=== PATIENT | male | born 1955 | race Hispanic/Latino ===

== ENCOUNTER 2018-09-04 13:08 | Inpatient (IN) | payer OTHER, SELFPAY ==
[2018-09-04] MEDS ORDERED: ASPIRIN 81 MG CHEWABLE TABLET ONE (14:04)
[2018-09-04 14:14] LABS: ALT/SGPT 32 U/L (12-78); AST/SGOT 17 U/L (15-37); Albumin 3.9 g/dL (3.4-5.0); Alkaline Phosphatase 81 U/L (45-117); BUN Blood Urea Nitrogen 16 mg/dL (7-18); Bicarbonate 27 mmol/L (21-32); Bilirubin Direct < 0.1 mg/dL (0-0.2); Bilirubin Total 0.4 mg/dL (0.2-1.0); Glucose Level 92 mg/dL (74-106); Magnesium 2.2 mg/dL (1.8-2.4); NT PRO-BNP 23 pg/mL (<125); Potassium 4.3 mmol/L (3.5-5.1); Protein, Total 7.6 g/dL (6.4-8.2); Sodium Level 139 mmol/L (136-145); Troponin (Emerg Dept Use Only) 0.03 ng/mL (0.0-0.045)
[2018-09-04 14:18] LABS: Protime INR 1.06
[2018-09-04 14:44] LABS: Absolute Lymphocytes (CBC) 1.6 K/uL (0.7-4.9); Absolute Monocytes 0.7 K/uL (0.1-1.3); Absolute Neutrophil 4.5 K/uL (1.8-8.0); Basophils % 0.9 % (0-1.3); Eosinophils % 6.7 % (0-4.4); Hematocrit 48.8 % (39.6-49.0); Lymphocytes % 22.5 % (15.3-44.8); MPV 9.1 fL (7.6-11.3); Monocytes % 9.1 % (3.3-12.3); RBC Red Blood Cell Count 5.44 M/uL (4.33-5.43)
--- NOTE | 2018-09-04 14:55 | RAD REPORT ---
EXAM DESCRIPTION: Morgan Single View09/04/2018 1:49 pm CLINICAL HISTORY: Chest pain COMPARISON: none FINDINGS: The lungs appear clear of acute infiltrate. The heart is normal size Mild prominence of the mediastinum IMPRESSION: Mild prominence of the mediastinum. CT chest with IV contrast recommended
--- NOTE | 2018-09-04 15:07 | EKG ---
Test Date: 2018-09-04 Test Time: 13:13:18 Press Puller: ANTHONY MEASUREMENT RESULTS: Intervals: Rate: 58 [place]: 142 QRSD: 80 QT: 402 QTc: 394 [place]: P: 13 [place]: 142 QRS: 74 T: 54 INTERPRETIVE STATEMENTS: Sinus bradycardia Otherwise normal ECG Compared to ECG 03/22/2010 09:10:57 Sinus rhythm no longer present T-wave abnormality no longer present Electronically Signed On 09-04-18 15:07:09 CDT by Dex Mtz
--- NOTE | 2018-09-04 15:17 | ER ---
Nurse's Notes [facility] Name: Jose Song Age: 62 yrs Sex: Male : 1955 Arrival Date: 09/04/2018 Time: 13:11 Bed 23 Private MD: Diagnosis: Other chest pain Presentation: 09/04 13:12 Presenting complaint: Chest pain that radiates to both arms that woke him up from sleep hb this morning. Also c/o mild SOB. Transition of care: patient was not received from another setting of care. Onset of symptoms was September 04, 2018. Risk Assessment: Do you want to hurt yourself or someone else? Patient reports no desire to harm self or others. Care prior to arrival: None. 13:12 Method Of Arrival: Ambulatory hb 13:12 Acuity: SHAVON 3 hb 20:12 Initial Sepsis Screen: Does the patient meet any 2 criteria? No. Patient's initial rv sepsis screen is negative. Does the patient have a suspected source of infection? No. Patient's initial sepsis screen is negative. Historical: - Allergies: 13:14 No Known Allergies; hb - PMHx: 13:14 Hypertension; hb - PSHx: 13:14 Heart stents; hb - Immunization history:: Adult Immunizations up to date. - Social history:: Smoking status: Patient/guardian denies using tobacco, Patient/guardian denies using alcohol, street drugs, The patient lives with family. - Ebola Screening: : No symptoms or risks identified at this time. - Family history:: not pertinent. Screenin:30 Abuse screen: Denies threats or abuse. Denies injuries from another. Nutritional aj1 screening: No deficits noted. Tuberculosis screening: No symptoms or risk factors identified. 20:12 Fall Risk None identified. rv Assessment: 13:30 General: Appears in no apparent distress. uncomfortable, Behavior is calm, cooperative, aj1 appropriate for age. Pain: Complains of pain in mid-sternal area Pain radiates to right arm, left arm and neck Pain currently is 7 out of 10 on a pain scale. Quality of pain is described as burning, Pain began 8 hours ago Is continuous. Neuro: Level of Consciousness is awake, alert, obeys commands, Oriented to person, place, time, situation. Cardiovascular: Reports chest pain, Heart tones S1 S2 present Patient's skin is warm and dry. Rhythm is sinus rhythm. Respiratory: Airway is patent Respiratory effort is even, unlabored, Respiratory pattern is regular, symmetrical, Breath sounds are clear bilaterally. GI: No signs and/or symptoms were reported involving the gastrointestinal system. : No signs and/or symptoms were reported regarding the genitourinary system. EENT: No signs and/or symptoms were reported regarding the EENT system. Derm: No signs and/or symptoms reported regarding the dermatologic system. Skin is pink, warm \T\ dry. normal. Musculoskeletal: No signs and/or symptoms reported regarding the musculoskeletal system. Circulation, motion, and sensation intact. 14:45 Reassessment: Patient appears in no apparent distress at this time. No changes from aj1 previously documented assessment. Patient and/or family updated on plan of care and expected duration. Pain level reassessed. Patient is alert, oriented x 3, equal unlabored respirations, skin warm/dry/pink. 16:31 Reassessment: Patient appears in no apparent distress at this time. Patient and/or rv family updated on plan of care and expected duration. Pain level reassessed. Patient is alert, oriented x 3, equal unlabored respirations, skin warm/dry/pink. Patient states feeling better. Patient states symptoms have improved. 20:17 Reassessment: Patient appears in no apparent distress at this time. No changes from rv previously documented assessment. Patient and/or family updated on plan of care and expected duration. Pain level reassessed. Patient is alert, oriented x 3, equal unlabored respirations, skin warm/dry/pink. Vital Signs: 13:13 BP 161 / 113; Pulse 75; Resp 20; Temp 98.0; Pulse Ox 99% on R/A; Pain 7/10; hb 13:30 BP 128 / 96; Pulse 56; Resp 18; Pulse Ox 98% on R/A; aj1 14:00 BP 150 / 95 LA; Pulse 56; Resp 17 S; Pulse Ox 99% on R/A; rv 14:44 BP 151 / 100; Pulse 53; Resp 18; Pulse Ox 99% ; aj1 15:53 BP 152 / 97; Pulse 70; Resp 19; Temp 97.8; Pulse Ox 98% ; lt1 16:30 BP 170 / 118; Pulse 52; Resp 17; Pulse Ox 99% ; rv 17:00 BP 159 / 115; Pulse 53; Resp 15; Pulse Ox 99% ; rv 17:30 BP 151 / 111; Pulse 54; Resp 15; Pulse Ox 99% ; rv 18:00 BP 149 / 100; Pulse 57; Resp 16; Pulse Ox 99% ; rv 18:30 BP 135 / 94; Pulse 55; Resp 15; Pulse Ox 99% ; rv 19:00 BP 163 / 98; Pulse 57; Resp 15; Pulse Ox 99% ; rv 19:30 BP 148 / 101; Pulse 61; Resp 17; Pulse Ox 99% ; rv ED Course: 13:11 Patient arrived in ED. hb 13:13 Triage completed. hb 13:13 Arm band placed on left wrist. hb 13:14 EKG completed in triage. Results shown to MD. hb 13:24 Shirley Ruiz, RN is Primary Nurse. aj1 13:24 Codey Oseguera MD is Attending Physician. ma2 13:27 EKG done, by technology support analyst. reviewed by Tremaine Pandey MD. sm3 13:30 Patient has correct armband on for positive identification. surveillance monitor on. Pulse aj1 ox on. NIBP on. 13:30 No provider procedures requiring assistance completed. Patient maintains SpO2 aj1 saturation greater than 95% on room air. 13:46 X-ray completed. Portable x-ray completed in exam room. Patient tolerated procedure ml well. 13:47 XRAY Chest (1 view) In Process Unspecified. EDMS 13:50 Initial lab(s) drawn, by il, sent to lab. Inserted saline lock: 18 gauge in right aj1 antecubital area, using aseptic technique. Blood collected. 15:15 El Gunderson DO is Hospitalizing Provider. ma2 15:[address] via stretcher. 2 20:17 Patient admitted, IV remains in place. intact. rv Administered Medications: 13:54 Drug: Aspirin Chewable Tablet 324 mg Route: PO; aj1 16:21 Follow up: Response: No adverse reaction rv Outcome: 15:16 Decision to Hospitalize by Provider. ma2 20:10 Admitted to Tele accompanied by tech, via wheelchair, room 421, with chart, Report rv called to BALDO KERNS 20:10 Condition: good 20:10 Instructed on the need for admit, Demonstrated understanding of instructions. 20:17 Patient left the ED. rv Signatures: Dispatcher [employer] EDMS Shirley Ruiz, RN RN [email or web address] Jose Manuel, Alia Alvarez, LUIS F RN Sonali Chavez 2 Codey Oseguera MD MD pr2 Koki Coppola 3 Jd Chavez, RN RN [facility], [place] [id number]
--- NOTE | 2018-09-04 15:17 | EDPHYS ---
Physician Documentation [facility] Name: Jose Song Age: 62 yrs Sex: Male : 1955 Arrival Date: 09/04/2018 Time: 13:11 Bed 23 Private MD: ED Physician Codey Oseguera HPI: 09/04 13:36 This 62 yrs old Male presents to ER via Ambulatory with complaints of Chest ma2 Pain. 13:36 The patient or guardian reports chest pain that is located primarily in the substernal ma2 area. Onset: gradually, 3 day(s) ago. The pain does not radiate. Associated signs and symptoms: Pertinent negatives: abdominal pain, diaphoresis, dizziness. The chest pain is described as aching. Duration: The patient or guardian reports a single episode, The patient or guardian reports multiple episodes, that have now resolved. Severity of pain: At its worst the pain was moderate in the emergency department the pain is unchanged. Historical: - Allergies: 13:14 No Known Allergies; hb - PMHx: 13:14 Hypertension; hb - PSHx: 13:14 Heart stents; hb - Immunization history:: Adult Immunizations up to date. - Social history:: Smoking status: Patient/guardian denies using tobacco, Patient/guardian denies using alcohol, street drugs, The patient lives with family. - Ebola Screening: : No symptoms or risks identified at this time. - Family history:: not pertinent. ROS: 13:36 Constitutional: Negative for fever, chills, and weight loss, Respiratory: Negative for ma2 shortness of breath, cough, wheezing, and pleuritic chest pain, Abdomen/GI: Negative for abdominal pain, nausea, diarrhea, and constipation. 13:36 Cardiovascular: Positive for chest pain, Negative for edema. 13:36 All other systems are negative. Exam: 13:36 Constitutional: This is a well developed, well nourished patient who is awake, alert, ma2 and in no acute distress. Chest/axilla: Normal chest wall appearance and motion. Nontender with no deformity. No lesions are appreciated. Cardiovascular: Regular rate and rhythm with a normal S1 and S2. No gallops, murmurs, or rubs. Normal PMI, no JVD. No pulse deficits. Respiratory: Lungs have equal breath sounds bilaterally, clear to auscultation and percussion. No rales, rhonchi or wheezes noted. No increased work of breathing, no retractions or nasal flaring. Abdomen/GI: Soft, non-tender, with normal bowel sounds. No distension or tympany. No guarding or rebound. No evidence of tenderness throughout. Skin: Warm, dry with normal turgor. Normal color with no rashes, no lesions, and no evidence of cellulitis. MS/ Extremity: Pulses equal, no cyanosis. Neurovascular intact. Full, normal range of motion. Vital Signs: 13:13 BP 161 / 113; Pulse 75; Resp 20; Temp 98.0; Pulse Ox 99% on R/A; Pain 7/10; hb 13:30 BP 128 / 96; Pulse 56; Resp 18; Pulse Ox 98% on R/A; aj1 14:00 BP 150 / 95 LA; Pulse 56; Resp 17 S; Pulse Ox 99% on R/A; rv 14:44 BP 151 / 100; Pulse 53; Resp 18; Pulse Ox 99% ; aj1 15:53 BP 152 / 97; Pulse 70; Resp 19; Temp 97.8; Pulse Ox 98% ; lt1 16:30 BP 170 / 118; Pulse 52; Resp 17; Pulse Ox 99% ; rv 17:00 BP 159 / 115; Pulse 53; Resp 15; Pulse Ox 99% ; rv 17:30 BP 151 / 111; Pulse 54; Resp 15; Pulse Ox 99% ; rv 18:00 BP 149 / 100; Pulse 57; Resp 16; Pulse Ox 99% ; rv 18:30 BP 135 / 94; Pulse 55; Resp 15; Pulse Ox 99% ; rv 19:00 BP 163 / 98; Pulse 57; Resp 15; Pulse Ox 99% ; rv 19:30 BP 148 / 101; Pulse 61; Resp 17; Pulse Ox 99% ; rv MDM: 13:24 Patient medically screened. wi2 13:36 Differential diagnosis: acute myocardial infarction, anxiety, chest wall pain, ma2 gastroesophageal reflux disease (GERD), stable angina. ILA Risk Score: 1 - Three or more CAD risk factors, 1- Known CAD, 1 - ASA use in past 7 days. 15:15 Data reviewed: vital signs, nurses notes. Counseling: I had a detailed discussion with ma2 the patient and/or guardian regarding: the historical points, exam findings, and any diagnostic results supporting the discharge/admit diagnosis, the presence of at least one elevated blood pressure reading (>120/80) during this emergency department visit, the need for further work-up and treatment in the hospital. 09/04 13:25 Order name: Basic Metabolic Panel [facility] [place] 09/04 13:25 Order name: CBC with Diff; Complete Time: 15:26 wi2 09/04 13:25 Order name: LFT's; Complete Time: 14:34 wi2 09/04 13:25 Order name: Magnesium; Complete Time: 14:34 ma2 09/04 13:25 Order name: NT PRO-BNP; Complete Time: 14:34 ma2 09/04 13:25 Order name: PT-INR; Complete Time: 14:49 ma2 09/04 13:25 Order name: Troponin (emerg Dept Use Only); Complete Time: 14:34 ma2 09/04 13:25 Order name: XRAY Chest (1 view); Complete Time: 15:26 [facility] [place] 09/04 13:25 Order name: EKG; Complete Time: 13:26 wi2 09/04 13:25 Order name: Cardiac monitoring; Complete Time: 13:40 ma2 09/04 13:25 Order name: Basic Metabolic Panel; Complete Time: 14:34 EDMS 09/04 15:27 Order name: CT Chest Angio [facility] [place] 09/04 15:51 Order name: CT EDMS 09/04 13:25 Order name: EKG - Nurse/Tech; Complete Time: 13:26 wi2 09/04 13:25 Order name: IV Saline Lock; Complete Time: 13:55 wi2 09/04 13:25 Order name: Labs collected and sent; Complete Time: 13:55 wi2 09/04 13:25 Order name: O2 Per Protocol; Complete Time: 13:40 wi2 09/04 13:25 Order name: O2 Sat Monitoring; Complete Time: 13:40 ma2 Administered Medications: 13:54 Drug: Aspirin Chewable Tablet 324 mg Route: PO; aj1 16:21 Follow up: Response: No adverse reaction rv Disposition: 09/04/18 15:16 Hospitalization ordered by El Gunderson for Observation. Preliminary diagnosis is Other chest pain. - Bed requested for Telemetry/MedSurg (observation). - Status is Observation. rv - Condition is Fair. - Problem is new. - Symptoms are resolved. UTI on Admission? No Signatures: Dispatcher [employer] EDShirley Moreno RN RN aj1 Susan James RN RN dw Alia Hough, LUIS F KERNS Codey Oseguera MD MD wi2 Jd Chavez, LUIS F RN rv Corrections: (The following items were deleted from the chart) 15:16 15:16 Hospitalization Ordered by [facility] for Observation. Preliminary ma2 diagnosis is Other chest pain. Bed requested for Telemetry/MedSurg (Inpatient). Status is Observation. Condition is Fair. Problem is new. Symptoms are resolved. UTI on Admission? No. ma2 18:38 15:16 09/04/2018 15:16 Hospitalization Ordered by [facility] for Observation. dw Preliminary diagnosis is Other chest pain. Bed requested for Telemetry/MedSurg (observation). Status is Observation. Condition is Fair. Problem is new. Symptoms are resolved. UTI on Admission? No. ma2 20:17 18:38 09/04/2018 15:16 Hospitalization Ordered by [facility] for Observation. rv Preliminary diagnosis is Other chest pain. Bed requested for Telemetry/MedSurg (observation). Status is Observation. Condition is Fair. Problem is new. Symptoms are resolved. UTI on Admission? No. dw
--- NOTE | 2018-09-04 15:36 | P.HP ---
Certification for Inpatient Patient admitted to: Observation With expected LOS: <2 Midnights Patient will require the following post-hospital care: None Practitioner: I am a practitioner with admitting privileges, knowledge of patient current condition, hospital course, and medical plan of care. Services: Services provided to patient in accordance with Admission requirements found in Title 42 Section 412.3 of the Code of Federal Regulations Patient History Date of Service: 09/04/18 Primary Care Provider: None; Cardiology-Dr. Mtz Reason for admission: Chest pain History of Present Illness: 62-year-old male presented to emergency room with chest pain. He has reported chest pain for the past 4 weeks. Over the last 2 days and last night chest pain was severe. It was mainly to the substernal region. It radiated to the right arm and neck. Patient denied any significant nausea, vomiting. Mild shortness of breath noted. Patient with history of hypertension and stent placed in the past. Patient has not followed up with cardiology. Patient appears to not be compliant with his medication. In the ER patient evaluated. Initial blood pressure is elevated. If cardiac enzymes unremarkable. Chest x-ray shows mild prominence to the mediastinum. CBC and BMP unremarkable. Patient admitted for further evaluation. When I saw the patient the ER, he appeared comfortable. Blood pressure slightly elevated. Patient has not followed up with cardiology recently. Previous heart catheterization showed significant stenosis to the LAD. Stent placed. He has not followed up since that time. Allergies No Known Allergies Allergy (Unverified 11/19/12 20:19) Home medications list reviewed: Yes Home Medications: Aspirin 325 mg PO DAILY #30 tablet 11/23/12 Clopidogrel Bisulfate [Plavix*] 75 mg PO DAILY #30 tablet 11/23/12 Metoprolol Tartrate [Lopressor*] 50 mg PO BID #60 tab 11/23/12 Simvastatin [Zocor*] 40 mg PO UD #30 tablet 11/23/12 - Past Medical/Surgical History Diabetic: No -: Hypertension -: CAD with stent to the LAD -: GERD -: Obesity -: Heart catheterization, stent placed -: Left hand surgery Psychosocial/ Personal History: Patient is . He has 5 children. 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 - Family History Family History: Reviewed- Non-Contributory - Social History Smoking Status: Former smoker Alcohol use: No CD- Drugs: No Caffeine use: Yes Place of Residence: Home Review of Systems General: As per HPI Eyes: Unremarkable ENT: Unremarkable Respiratory: Unremarkable Cardiovascular: Chest Pain, As per HPI Gastrointestinal: As per HPI (Some reflex noted.) Genitourinary: Unremarkable Musculoskeletal: Unremarkable Integumentary: Unremarkable Neurological: Unremarkable Lymphatics: Unremarkable Physical Examination - Physical Exam General: Alert, In no apparent distress, Oriented x3, Cooperative HEENT: Atraumatic, Normocephalic, PERRLA, Mucous membr. moist/pink Neck: Supple, No Thyromegaly Respiratory: Clear to auscultation bilaterally, Normal air movement Cardiovascular: Normal pulses, Regular rate/rhythm Gastrointestinal: Normal bowel sounds, Soft and benign, Non-distended, No tenderness, No masses, No rebound, No guarding Musculoskeletal: No contractures, No erythema, No tenderness, No warmth Integumentary: No tenderness/swelling, No erythema, No warmth, No cyanosis Neurological: Normal speech, Normal strength at 5/5 x4 extr, Normal tone, Normal affect - Studies Laboratory Data (last 24 hrs) 09/04/18 13:49: PT 12.5, INR 1.06 09/04/18 13:49: WBC 7.3, Hgb 16.4, Hct 48.8, Plt Count 278 09/04/18 13:49: Sodium 139, Potassium 4.3, BUN 16, Creatinine 0.86, Glucose 92, Magnesium 2.2, Total Bilirubin 0.4, AST 17, ALT 32, Alkaline Phosphatase 81 Assessment and Plan - Plan Impression: Chest pain with prior CAD and stent placed to the LAD in 2012 with poor follow up Hypertension, uncontrolled Obesity GERD Plan: Chest pain with prior CAD and stent placed to the LAD in 2012 with poor follow up: Patient will be admitted. Continue to monitor cardiac enzymes and telemetry. Will place on aspirin, DNAIELITO-inhibitor and beta-donavan therapy. Will continue DVT prophylaxis with Lovenox. Echocardiogram ordered. Will keep the patient NPO after midnight. Cardiology consulted to further evaluate. Anticipate possible cardiac evaluation and possible intervention. Await further recommendations from cardiology. Will obtain CT scan of the chest to evaluate mild prominence to the mediastinum. Hypertension, uncontrolled: Continue with metoprolol. Will add DANIELITO-inhibitor. Obesity: Will address lifestyle modification education and obtain BMI. GERD: Will start Protonix. Discharge Plan: Home Plan to discharge in: 24 Hours - Advance Directives Does patient have a Living Will: No Does patient have a Durable POA for Healthcare: No - Code Status/Comfort Care Code Status Assessed: Yes (Patient full code.) Time Spent Managing Pts Care (In Minutes): 55
--- NOTE | 2018-09-04 15:50 | RAD REPORT ---
EXAM DESCRIPTION: CT - Chest Angio - 09/04/2018 3:40 pm CLINICAL HISTORY: Chest pain. CHEST PAIN COMPARISON: No comparisons TECHNIQUE: CT angiogram of the pulmonary arteries was performed with MIP. All CT scans are performed using dose optimization technique as appropriate and may include automated exposure control or mA/KV adjustment according to patient size. FINDINGS: No evidence of pulmonary thromboembolism. No acute aortic finding demonstrated. Mild to moderate interstitial pulmonary edema seen. No significant pericardial or pleural fluid. No concerning bony finding. IMPRESSION: No evidence of pulmonary thromboembolism. [id number] interstitial pulmonary edema.
[2018-09-04] MEDS ORDERED: ONDANSETRON 4 MG/2 ML VIAL IV PRN (21:20)
[2018-09-04] MEDS ORDERED: ACETAMINOPHEN 500 MG TAB PO PRN (21:20)
[2018-09-04] MEDS: MORPHINE 2 MG/ML SYR IV PRN (21:54)
[2018-09-04 22:32] LABS: CKMB Creatine Kinase MB 1.9 ng/mL (0.3-3.6); Thyroid Stimulating Hormone 2.47 uIU/mL (0.360-3.740); Troponin I 0.08 ng/mL (0.0-0.045)
[2018-09-05 04:30] LABS: Urine Appearance CLEAR; Urine Bilirubin NEGATIVE (NEG); Urine Blood TRACE (NEG); Urine Color YELLOW; Urine Glucose NEGATIVE (NEG); Urine Protein NEGATIVE (NEG); Urine Specific Gravity >=1.030 (1.005-1.030); Urine Urobilinogen 0.2 mg/dL (0.2-1.0)
[2018-09-05 04:39] VITALS: BMI 29.9
[2018-09-05 04:49] LABS: Urine Microscopic Reflex ORDER UMIC
[2018-09-05 05:13] LABS: Urine Bacteria <20 /HPF (NONE SEEN); Urine Culture Reflex Order REFLEXED; Urine RBC <5 /HPF (NONE SEEN)
[2018-09-05] MEDS: PANTOPRAZOLE 40MG TABLET PO SCH (05:56)
[2018-09-05] MEDS ORDERED: METOPROLOL TAR 25 MG TAB PO SCH (06:00)
[2018-09-05] MEDS: MORPHINE 2 MG/ML SYR IV PRN ×2 (06:24→18:58)
[2018-09-05 06:25] LABS: Absolute Lymphocytes (CBC) 1.8 K/uL (0.7-4.9); Absolute Monocytes 0.5 K/uL (0.1-1.3); Absolute Neutrophil 3.5 K/uL (1.8-8.0); Eosinophils % 9.6 % (0-4.4); Hematocrit 47.3 % (39.6-49.0); Lymphocytes % 27.9 % (15.3-44.8); MPV 8.6 fL (7.6-11.3); Monocytes % 7.5 % (3.3-12.3); RBC Red Blood Cell Count 5.29 M/uL (4.33-5.43)
[2018-09-05] MEDS: NITROGLYCERIN 0.4 MG/TAB SL PRN ×3 (06:40→10:07)
[2018-09-05 06:43] LABS: Magnesium 2.1 mg/dL (1.8-2.4); Potassium 4.1 mmol/L (3.5-5.1); Troponin I 0.13 ng/mL (0.0-0.045)
[2018-09-05] MEDS ORDERED: FUROSEMIDE 40 MG/4 ML VIAL IV SCH (09:00)
[2018-09-05] MEDS ORDERED: INFLUENZA VACCINE (for 3y+) 0.5 ML DOSE IMVAC ONE (09:00)
[2018-09-05] MEDS: ENOXAPARIN 40 MG/0.4 ML SQ SCH (09:00)
--- NOTE | 2018-09-05 09:05 | P.PN ---
Subjective Date of Service: 09/05/18 Primary Care Provider: None; Cardiology-Dr. Mtz Chief Complaint: Chest pain Subjective: Other (Patient had chest pain this morning. Patient seen and evaluated by Cardiology. Cardiology plans for heart catheterization.) Physical Examination - Vital Signs Temperature: 98.1 F Blood Pressure: 109/72 Pulse: 59 Respirations: 16 Pulse Ox (%): 97 - Physical Exam General: Alert, In no apparent distress, Oriented x3, Cooperative HEENT: Atraumatic Neck: Supple Respiratory: Clear to auscultation bilaterally, Normal air movement Cardiovascular: Normal pulses, Regular rate/rhythm Gastrointestinal: Normal bowel sounds, Soft and benign, Non-distended Musculoskeletal: No erythema, No tenderness, No warmth Integumentary: No tenderness/swelling, No erythema, No warmth, No cyanosis Neurological: Normal speech, Normal strength at 5/5 x4 extr, Normal tone, Normal affect - Studies Laboratory Data (last 24 hrs) 09/04/18 13:49: PT 12.5, INR 1.06 09/04/18 13:49: WBC 7.3, Hgb 16.4, Hct 48.8, Plt Count 278 09/04/18 13:49: Sodium 139, Potassium 4.3, BUN 16, Creatinine 0.86, Glucose 92, Magnesium 2.2, Total Bilirubin 0.4, AST 17, ALT 32, Alkaline Phosphatase 81 Medications List Reviewed: Yes Assessment & Plan Discharge Plan: Home Plan to discharge in: 48 Hours Physician Review Additional Text: Impression: Chest pain secondary to NSTEMI with prior CAD and stent placed to the LAD in 2012 with poor follow up Hypertension, uncontrolled Hyperlipidemia Obesity, BMI 30 GERD Plan: Chest pain secondary to NSTEMI with prior CAD and stent placed to the LAD in 2012 with poor follow up: Patient had chest pain this morning. Troponin elevated. Patient seen in evaluated by Cardiology. Cardiology plans for heart catheterization today. Patient to remain NPO and bed rest. Patient may have severe CAD. Await findings and recommendations after heart catheterization. Hypertension, uncontrolled: Continue with medication. Will continue to monitor and adjust. Hyperlipidemia: Continue medication. Obesity, BMI 30: Will address lifestyle modification education. GERD: Continue medication. Time Spent Managing Pts Care (In Minutes): 55
[2018-09-05] MEDS: ASPIRIN EC 81 MG TAB PO SCH (09:07)
[2018-09-05] MEDS: LISINOPRIL 10 MG TAB PO SCH (09:07)
[2018-09-05] MEDS ORDERED: NA CHLORIDE 0.9% 1,000 ML ONE (10:41)
[2018-09-05] MEDS ORDERED: ATROPINE SULF 1 MG/10 ML SYR IV ONE (10:47)
[2018-09-05] MEDS ORDERED: NA CHLORIDE 0.9% 50 ML ONE (10:47)
[2018-09-05] MEDS ORDERED: HEPA 1000U/500MLS 1,000 UNIT/500 ML BAG IV ONE (10:47)
[2018-09-05] MEDS ORDERED: FENTANYL CITR 100 MCG/2 ML ONE ×2 (11:10→11:46)
[2018-09-05] MEDS ORDERED: NITROGLYCERIN 100 MCG/ML SYR (for cath lab use only) IV ONE (11:10)
[2018-09-05] MEDS ORDERED: NITROGLYCERIN/D5W 25 MG/250 ML BTL IV ONE (11:10)
[2018-09-05] MEDS ORDERED: MIDAZOLAM HCL 2 MG/2 ML INJ ONE (11:10)
[2018-09-05] MEDS ORDERED: PRASUGREL (EFFIENT) 10 MG TAB ONE (12:10)
[2018-09-05] MEDS ORDERED: ASPIRIN 325 MG TAB ONE (12:10)
--- NOTE | 2018-09-05 15:51 | EKG ---
Test Date: 2018-09-05 Test Time: 06:40:39 Data Analytics Analyst: 33 MEASUREMENT RESULTS: Intervals: Rate: 69 [place]: 164 QRSD: 82 QT: 428 QTc: 458 [place]: P: 53 [place]: 164 QRS: 68 T: 51 INTERPRETIVE STATEMENTS: Normal sinus rhythm Normal ECG Compared to ECG 09/04/2018 13:13:18 Sinus bradycardia no longer present Electronically Signed On 09-05-18 15:50:15 CDT by Jair Gonzalez
[2018-09-05] MEDS: ATORVASTATIN 80 MG TAB PO SCH (20:22)
--- NOTE | 2018-09-05 23:06 | OP ---
Surgeon: Jair Gonzalez MD Brokerage Clerk: Josr Chauhdari. Indications: Admitted on 09/04/[address] Gunderson' service with a non-ST elevation myocardial infarc tion. Procedure In Detail: The patient brought to the cathode builder on 09/05/2018 for non-ST elevation myocardi al infarction. He was prepped and draped in the routine sterile fashion. He was given 4 mg of Verse d for sedation with some fentanyl. A 6-Nepalese sheath introduced in the right common femoral artery. Anjelica catheter 6-Nepalese was used to do the angiography. He had a distal 99% RCA with some thrombu s. He had a completely occluded distal OM3 with collaterals from the RCA. He had a completely occlu ded LAD with some collaterals from the RCA. He had multiple diagonal stenosis. The patient was acti vely in pain as I was doing the case. I elected to treat the culprit lesion, which was obviously the RCA based on the look of it. We used the balloon 2.5 x 12 Emerge to predilate a [place] wire to cros s Needles Scientific Synergy stent 3.0 x 12 to deploy in the lesion with 0% residual. There were no c omplications. Blood Loss: 5 cc. Postoperative Diagnosis: Severe coronary artery disease status post primary angioplasty and stent of the distal RCA. Plan is for aspirin, Effient, beta donavan, and statin. The patient received Angiomax during the pro cedure. Total conscious sedation was 45 minutes. WADE/ELISEO Voice ID: [id number] Report ID: [id number]
[2018-09-06] MEDS: MORPHINE 2 MG/ML SYR IV PRN ×3 (03:42→13:44)
[2018-09-06 05:22] LABS: Absolute Monocytes 1.1 K/uL (0.1-1.3); Absolute Neutrophil 11.4 K/uL (1.8-8.0); Basophils % 0.4 % (0-1.3); Eosinophils % 0.1 % (0-4.4); Hematocrit 47.4 % (39.6-49.0); Lymphocytes % 7.6 % (15.3-44.8); MPV 8.8 fL (7.6-11.3); Monocytes % 7.9 % (3.3-12.3); RBC Red Blood Cell Count 5.39 M/uL (4.33-5.43)
[2018-09-06 05:36] LABS: Magnesium 2.2 mg/dL (1.8-2.4); Potassium 3.8 mmol/L (3.5-5.1)
[2018-09-06] MEDS ORDERED: METOPROLOL XL 50 MG TAB PO SCH (06:00)
[2018-09-06] MEDS ORDERED: POTASSIUM CL SA 10 MEQ TAB PO ONE (06:33)
[2018-09-06 06:41] LABS: Blood Morphology Comment NOT SEEN (NOT SEEN); Platelet Estimate ADEQ; Urine White Blood Cell Casts OK
[2018-09-06] MEDS: PANTOPRAZOLE 40MG TABLET PO SCH (06:52)
--- NOTE | 2018-09-06 07:16 | CON ---
Date of Consultation: 09/05/2018 The patient was admitted to Dr. Gunderson' service on 09/04/2018. I saw the patient on 09/05/2018. Reason For Consultation: Non-ST elevation myocardial infarction. History Of Present Illness: Mr. Song is a 62-year-old Latin-[place] African male that we have seen in the past. He has a history of hypertension, coronary artery disease. Has had multiple LAD stent in the past few years ago. Had completely lost to followup from a cardiovascular standpoint. Had coy nued to take aspirin and metoprolol at home, but no other medication. No followup with primary care physician and substernal chest pain radiating to both arms and back, diaphoresis, shortness of breath . Denied any PND, orthopnea, pedal edema, palpitations, or syncope. His initial troponin was 0.08. An EKG showed normal sinus rhythm with peak T-waves anteriorly. No ST elevation. Medical history a s stated above. Allergies: NONE. Review of Systems: Negative. Social History: Negative. Family History: Negative. Medications: Listed earlier. Physical Examination: General: He was anxious, diaphoretic, having chest pain. Vital Signs: Stable. However, he was afebrile. HEENT: Negative. Neck: Supple. There is no bruit. Chest: Clear. Cardiac: Revealed a regular rhythm and rate. No murmurs, gallops, or rubs. Abdomen: Benign. Extremities: Revealed no clubbing, cyanosis, or edema. Diagnostic Data: Showed a troponin of 0.08. CT angiography showed CHF. Chest x-ray showed he has s ome CHF that is mild. Impression And Plan: Non-ST elevation myocardial infarction. I will take him to the [facility] today because he has been having symptoms. I would hold his Lovenox for now. Continue aspirin, metoprolol , needs to be on a statin. We will see what the catheterization shows prior to making a final decisi on. An echocardiogram is pending as well. His blood pressure is fairly well controlled. As mention ed previously, he has a history of coronary artery disease with multiple LAD stents. We will see byron matias the with catheterization. Case was discussed with Dr. Gunderson. WADE/ELISEO Voice ID: [id number] Report ID: [id number]
--- NOTE | 2018-09-06 07:39 | EKG ---
Test Date: 2018-09-06 Test Time: 07:12:18 Accounts Adjustable Clerk: ANTHONY MEASUREMENT RESULTS: Intervals: Rate: 79 NJ: 152 QRSD: 82 QT: 372 QTc: 426 [place]: P: 56 NJ: 152 QRS: 33 T: 105 INTERPRETIVE STATEMENTS: Normal sinus rhythm Anteroseptal infarct, possible acute Abnormal ECG Compared to ECG 09/05/2018 06:40:39 Myocardial infarct finding now present Electronically Signed On 09-06-18 07:39:03 CDT by Dex Mtz
[2018-09-06] MEDS: ENOXAPARIN 40 MG/0.4 ML SQ SCH (07:58)
[2018-09-06] MEDS: CLOPIDOGREL 75 MG TABLET PO SCH (07:58)
[2018-09-06] MEDS: ASPIRIN EC 81 MG TAB PO SCH (07:58)
--- NOTE | 2018-09-06 08:43 | P.PN ---
Subjective Date of Service: 09/06/18 Primary Care Provider: None; Cardiology-Dr. Mtz Chief Complaint: Chest pain Subjective: Other (Still with chest pain post heart cath. ST changes noted to EKG this am.) Physical Examination - Vital Signs Temperature: 98.5 F Blood Pressure: 150/93 Pulse: 79 Respirations: 14 Pulse Ox (%): 97 - Physical Exam General: Alert, In no apparent distress, Oriented x3, Cooperative HEENT: Atraumatic Neck: Supple Respiratory: Clear to auscultation bilaterally, Normal air movement Cardiovascular: Normal pulses, Regular rate/rhythm Gastrointestinal: Normal bowel sounds, Soft and benign, Non-distended, No tenderness, No masses, No rebound, No guarding Musculoskeletal: No erythema, No tenderness, No warmth Integumentary: No tenderness/swelling, No erythema, No warmth, No cyanosis Neurological: Normal speech, Normal strength at 5/5 x4 extr, Normal tone, Normal affect - Studies Medications List Reviewed: Yes Assessment & Plan Discharge Plan: Other (Home vs transfer to [facility] if surgery recommended) Plan to discharge in: Greater than 2 days Physician Review Additional Text: Impression: Chest pain secondary to NSTEMI with prior CAD and stent placed to the LAD in 2012 with poor follow up Hypertension, uncontrolled Hyperlipidemia Obesity, BMI 30 GERD Plan: Chest pain secondary to NSTEMI with severe Coronary artery disease status post angioplasty and stent to the distal RCA with noted completely occluded LAD with some collaterals complicated with suspected acute on chronic diastolic CHF: Patient had chest pain again this morning. ST changes noted on EKG. Will discuss case further with cardiology. Await further recommendation. Patient may require CV surgery. Will continue with his medications including aspirin, beta-donavan therapy, statin medication, DANIELITO-inhibitor and anti-platelet therapy. Patient also on Lasix. Will recheck chest x-ray. Wean off oxygen to maintain sats above 90%. Continue to monitor closely. Hypertension, uncontrolled: Continue with medication. Will continue to monitor and adjust. Hyperlipidemia: Continue medication. Obesity, BMI 30: Will address lifestyle modification education. GERD: Continue medication.. He had a distal 99% RCA with some thrombus. He had a completely occluded distal OM3 with collaterals from the RCA. He had a completel Time Spent Managing Pts Care (In Minutes): 55
--- NOTE | 2018-09-06 08:44 | RAD REPORT ---
EXAM DESCRIPTION: [facility] Single View09/06/2018 8:10 am CLINICAL HISTORY: Chest pain COMPARISON: September 04 FINDINGS: The lungs appear clear of acute infiltrate. The heart is mildly enlarged. Prominence of the mediastinum which showed represent fat on the recent CAT scan IMPRESSION: No acute abnormalities displayed
[2018-09-06] MEDS: LISINOPRIL 10 MG TAB PO SCH (10:14)
--- NOTE | 2018-09-06 11:52 | ECHO ---
HEIGHT: 5 ft 5 in WEIGHT: 176 lb 12.8 oz DATE OF STUDY: 09/05/[address]: El Gunderson DO 2-DIMENSIONAL: YES M.MODE: YES DOPPLER: YES COLOR FLOW: YES TDS: NO PORTABLE: NO DEFINITY: NO BUBBLE STUDY: NO DIAGNOSIS: CHEST PAIN, HISTORY OF HYPERTENSION AND CORONARY ARTERY DISEASE CARDIAC HISTORY: CATHERIZATION: YES SURGERY: NO PROSTHETIC VALVE: NO PACEMAKER: NO MEASUREMENTS (cm) DIASTOLIC (NORMALS) SYSTOLIC (NORMALS) IVSd 1.0 (0.6-1.2) LA Diam 3.7 (1.9-4.0) LVEF 51% LVIDd 4.5 (3.5-5.7) LVIDs 3.3 (2.0-3.5) %FS 26% LVPWd 1.2 (0.6-1.2) Ao Diam 2.9 (2.0-3.7) 2 DIMENSIONAL ASSESSMENT: RIGHT ATRIUM: NORMAL LEFT ATRIUM: NORMAL RIGHT VENTRICLE: NORMAL LEFT VENTRICLE: NORMAL TRICUSPID VALVE: NORMAL MITRAL VALVE: NORMAL PULMONIC VALVE: NORMAL AORTIC VALVE: NORMAL PERICARDIAL EFFUSION: NONE AORTIC ROOT: NORMAL LEFT VENTRICULAR WALL MOTION: ANTEROAPICAL AKINESIS DOPPLER/COLOR FLOW: MILD TRICUSPID REGURGITATION. COMMENTS: MILD TRICUSPID REGURGITATION. ANTEROAPICAL AKINESIS. NORMAL LEFT VENTRICULAR EJECTION FRACTION. NO EFFUSION. TECHNOLOGIST: Rosemarie LYON
[2018-09-06] MEDS: TRAMADOL HCL 50 MG TAB PO PRN (12:29)
--- NOTE | 2018-09-06 12:51 | ECHO ---
HEIGHT: 5 ft 5 in WEIGHT: 176 lb 12.8 oz DATE OF STUDY: 09/06/[address]: Dex Mtz MD 2-DIMENSIONAL: YES M.MODE: YES DOPPLER: YES COLOR FLOW: YES TDS: NO PORTABLE: YES DEFINITY: NO BUBBLE STUDY: NO DIAGNOSIS: CHEST PAIN, ABNORMAL EKG CARDIAC HISTORY: CATHERIZATION: YES SURGERY: NO PROSTHETIC VALVE: NO PACEMAKER: NO MEASUREMENTS (cm) DIASTOLIC (NORMALS) SYSTOLIC (NORMALS) IVSd (0.6-1.2) LA Diam (1.9-4.0) LVEF 50-55% LVIDd (3.5-5.7) LVIDs (2.0-3.5) %FS % LVPWd (0.6-1.2) Ao Diam (2.0-3.7) 2 DIMENSIONAL ASSESSMENT: RIGHT ATRIUM: NORMAL LEFT ATRIUM: DILATED RIGHT VENTRICLE: NORMAL LEFT VENTRICLE: NORMAL TRICUSPID VALVE: NORMAL MITRAL VALVE: NORMAL PULMONIC VALVE: NORMAL AORTIC VALVE: NORMAL PERICARDIAL EFFUSION: NONE AORTIC ROOT: NORMAL LEFT VENTRICULAR WALL MOTION: ANTEROAPICAL HYPOKINESIS. DOPPLER/COLOR FLOW: NORMAL. COMMENTS: NORMAL LEFT VENTRICULAR EJECTION FRACTION WITH WILBER-APICAL HYPOKINESIS. DILATED LEFT ATRIUM. NO PERICARDIAL EFFUSION COMPARED TO 09/05/18 THE ANTERIOR HYPOKINESIS HAS IMPROVED. TECHNOLOGIST: SUSAN LYON
--- NOTE | 2018-09-06 16:34 | PN ---
Subjective: Mr. Song had an acute angioplasty yesterday. It was in the right coronary. His LA D is completely blocked, years ago it had been stented, and it was not felt to be the infarct artery, any chance to try and open it, I think, would have been futile. It was an excellent result from his right coronary. This morning, he had chest pain. His EKG shows evidence of an anterior infarct. I think it is confusing because the LAD occlusion is old and collateral flow to the LAD from the right was compromised and that is where we see heart damage. Comparing the echo yesterday to today, the L VF is improving. There is more blood flow to the anterior wall of his heart. I do not think he is h aving stent reocclusion or unstable angina. His symptoms sound much more like pleuritic chest pain. I think we should probably give him colchicine to try and help with that for a few days. In the samantha ntime, I think he could be moved out of ICU . JACINTO/ELISEO Voice ID: [id number] Report ID: [id number]
[2018-09-06] MEDS ORDERED: MORPHINE 2 MG/ML SYR IV PRN (17:34)
[2018-09-06] MEDS: COLCHICINE 0.6 MG TAB PO SCH (21:29)
[2018-09-06] MEDS: ATORVASTATIN 80 MG TAB PO SCH (21:30)
[2018-09-07 05:37] LABS: Absolute Lymphocytes (CBC) 1.1 K/uL (0.7-4.9); Absolute Monocytes 1.8 K/uL (0.1-1.3); Absolute Neutrophil 11.6 K/uL (1.8-8.0); Basophils % 0.2 % (0-1.3); Hematocrit 47.5 % (39.6-49.0); Lymphocytes % 7.3 % (15.3-44.8); MPV 8.8 fL (7.6-11.3); Monocytes % 12.5 % (3.3-12.3); RBC Red Blood Cell Count 5.33 M/uL (4.33-5.43)
[2018-09-07 05:40] LABS: BUN Blood Urea Nitrogen 17 mg/dL (7-18); Bicarbonate 29 mmol/L (21-32); Glucose Level 133 mg/dL (74-106); Magnesium 2.1 mg/dL (1.8-2.4); Sodium Level 137 mmol/L (136-145)
--- NOTE | 2018-09-07 08:22 | RAD REPORT ---
EXAM DESCRIPTION: RAD - Chest Pa And Lat (2 Views) - 09/07/2018 7:36 am CLINICAL HISTORY: follow up CAD/CHF Chest pain. COMPARISON: Chest Single View dated 09/06/2018; Chest Single View dated 09/04/2018; Chest Angio dated 09/04/2018 FINDINGS: Linear opacities are present in the left lung base likely representing areas of atelectasi s. The lungs are otherwise grossly clear. The heart is upper limit of normal in size. No displaced fr actures.
[2018-09-07] MEDS: COLCHICINE 0.6 MG TAB PO SCH ×2 (08:39→19:45)
[2018-09-07] MEDS: PANTOPRAZOLE 40MG TABLET PO SCH (08:40)
[2018-09-07] MEDS: FUROSEMIDE 40 MG TABLET PO SCH ×2 (08:40→16:23)
[2018-09-07] MEDS: ENOXAPARIN 40 MG/0.4 ML SQ SCH (08:40)
[2018-09-07] MEDS: CLOPIDOGREL 75 MG TABLET PO SCH (08:40)
[2018-09-07] MEDS: ASPIRIN EC 81 MG TAB PO SCH (08:40)
[2018-09-07] MEDS: LISINOPRIL 10 MG TAB PO SCH (08:40)
--- NOTE | 2018-09-07 10:27 | P.DS ---
Admission Date: 09/05/18 Discharge Date: 09/07/18 Primary Care Provider: None; Cardiology-Dr. Mtz Disposition: ROUTINE DISCHARGE Discharge Condition: GOOD Reason for Admission: Chest pain Consultations: Cardiology-Dr. Mtz Procedures: CT scan: FINDINGS: No evidence of pulmonary thromboembolism. No acute aortic finding demonstrated. Mild to moderate interstitial pulmonary edema seen. No significant pericardial or pleural fluid. No concerning bony finding. IMPRESSION: No evidence of pulmonary thromboembolism. [id number]-po-[id number] interstitial pulmonary edema. ECHO: Ejection fraction 55% LEFT VENTRICULAR WALL MOTION: ANTEROAPICAL HYPOKINESIS. DOPPLER/COLOR FLOW: NORMAL. COMMENTS: NORMAL LEFT VENTRICULAR EJECTION FRACTION WITH WILBER-APICAL HYPOKINESIS. DILATED LEFT ATRIUM. NO PERICARDIAL EFFUSION COMPARED TO 09/05/18 THE ANTERIOR HYPOKINESIS HAS IMPROVED. Heart Catheterization: Surgeon: Jair Gonzalez MD Clerk General: Josr Chaudhari. Indications: Admitted on 09/04/[address] Gunderson' service with a non-ST elevation myocardial infarction. Procedure In Detail: The patient brought to the [facility] on 09/05/2018 for non- ST elevation myocardial infarction. He had a distal 99% RCA with some thrombus. He had a completely occluded distal OM3 with collaterals from the RCA. He had a completely occluded LAD with some collaterals from the RCA. He had multiple diagonal stenosis. Patient was treated for the culprit lesion, which was obviously the RCA based on the look of it. We used the balloon 2.5 x 12 Emerge to predilate a [place] wire to cross [place] [employer] Synergy stent 3.0 x 12 to deploy in the lesion with 0% residual. There were no complications. Blood Loss: 5 cc. Postoperative Diagnosis: Severe coronary artery disease status post primary angioplasty and stent of the distal RCA. Medical Problem List: Chest pain secondary to NSTEMI with prior CAD and stent placed to the LAD in 2013 with poor follow up Hypertension, uncontrolled Suspect acute on chronic diastolic CHF Hyperlipidemia Obesity, BMI 30 GERD Brief History of Present Illness: 62-year-old male presented to emergency room with chest pain. He has reported chest pain for the past 4 weeks. Over the last 2 days and last night chest pain was severe. It was mainly to the substernal region. It radiated to the right arm and neck. Patient denied any significant nausea, vomiting. Mild shortness of breath noted. Patient with history of hypertension and stent placed in the past. Patient has not followed up with cardiology. Patient appears to not be compliant with his medication. In the ER patient evaluated. Initial blood pressure is elevated. If cardiac enzymes unremarkable. Chest x-ray shows mild prominence to the mediastinum. CBC and BMP unremarkable. Patient admitted for further evaluation. When I saw the patient the ER, he appeared comfortable. Blood pressure slightly elevated. Patient has not followed up with cardiology recently. Previous heart catheterization showed significant stenosis to the LAD. Stent placed. He has not followed up since that time. Hospital Course: Patient presented with chest pain and shortness of breath. Patient found to have NSTEMI. Patient seen evaluated by Cardiology. Initial CT chest showed some pulmonary edema. Patient was placed on diuretic therapy. Heart catheterization was done. Heart catheterization showed severe Coronary artery disease. Angioplasty and stent to the distal RCA was performed due to significant stenosis. Heart catheterization also showed completely occluded LAD with some collaterals. Patient tolerated procedure well. Patient had chest pain thereafter. Patient was monitored and reassessed by Cardiology. No need for further intervention. Patient given colchicine with improvement. At discharge patient will continue with aspirin 81 mg daily, Plavix 75 mg daily, lisinopril 10 mg daily, Lipitor 80 mg daily, and metoprolol 12.5 mg daily. Patient will continue with colchicine 0.6 mg one pill twice daily as needed for chest pain, may need to hold medication if diarrhea begins. If chest pain persists he is to contact cardiology for further recommendation. Patient will be provided information to establish care with a PCP. Compliance with medication addressed in detail. Education on MS, CAD addressed in detail. Recommend to follow up with cardiology in 1-2 weeks. Patient with hypertension. At discharge patient will continue with lisinopril 10 mg daily and metoprolol Toprol 5 mg daily. Recommendation is to maintain blood pressures less 150/80. Further adjustment can be done by his PCP or cardiology. Patient may need to hold medication if blood pressure systolic less than 110. Patient with hyperlipidemia. Patient will continue with Lipitor 80 mg daily. Lifestyle modification education will be provided. Patient likely with underlying GERD. Patient will continue with Protonix 40 mg daily. Patient likely with underlying acute on chronic diastolic CHF. At discharge he will continue with a 1500 cc per day fluid restriction and low-salt diet. Patient will continue with Lasix 40 mg 1 pill twice daily. He is to monitor his weight daily. If his weight increases by more than 5 lb he is to contact cardiology for further recommendation. Further adjustment in medication may be required. This can be further addressed by cardiology. Vital Signs/Physical Exam: Temp Pulse Resp BP Pulse Ox 97.4 F 89 16 104/77 93 09/07/18 04:00 09/07/18 08:40 09/07/18 07:00 09/07/18 08:40 09/07/18 07:00 General: Alert, In no apparent distress, Oriented x3, Cooperative HEENT: Atraumatic Neck: Supple Respiratory: Clear to auscultation bilaterally, Normal air movement Cardiovascular: Normal pulses, Regular rate/rhythm Gastrointestinal: Normal bowel sounds, Soft and benign, Non-distended, No tenderness, No masses, No rebound, No guarding Musculoskeletal: No erythema, No tenderness, No warmth Integumentary: No tenderness/swelling, No erythema, No warmth, No cyanosis Neurological: Normal speech, Normal strength at 5/5 x4 extr, Normal tone, Normal affect Laboratory Data at Discharge: WBC 14.5 K/uL (4.3-10.9) H 09/07/18 05:05 Hgb 16.5 g/dL (13.6-17.9) 09/07/18 05:05 Hct 47.5 % (39.6-49.0) 09/07/18 05:05 Plt Count 240 K/uL (152-406) 09/07/18 05:05 PT 12.5 SECONDS (9.5-12.5) 09/04/18 13:49 INR 1.06 09/04/18 13:49 Sodium 137 mmol/L (136-145) 09/07/18 05:05 Potassium 4.0 mmol/L (3.5-5.1) 09/07/18 05:05 BUN 17 mg/dL (7-18) 09/07/18 05:05 Creatinine 0.84 mg/dL (0.55-1.3) 09/07/18 05:05 Glucose 133 mg/dL (74-106) H 09/07/18 05:05 Magnesium 2.1 mg/dL (1.8-2.4) 09/07/18 05:05 Total Bilirubin 0.4 mg/dL (0.2-1.0) 09/04/18 13:49 AST 17 U/L (15-37) 09/04/18 13:49 ALT 32 U/L (12-78) 09/04/18 13:49 Alkaline Phosphatase 81 U/L (45-117) 09/04/18 13:49 Troponin I 0.13 ng/mL (0.0-0.045) H 09/05/18 06:04 Triglycerides 200 mg/dL (<150) H 09/06/18 04:49 Cholesterol 272 mg/dL (<200) H 09/06/18 04:49 HDL Cholesterol 50 mg/dL (40-60) 09/06/18 04:49 Cholesterol/HDL Ratio 5.44 09/06/18 04:49 Home Medications: Aspirin Chewable [Aspirin Chewable*] 81 mg PO DAILY #90 tab.chew 09/07/18 Atorvastatin Calcium [Lipitor] 80 mg PO BEDTIME #30 tab 09/07/18 Clopidogrel Bisulfate [Plavix*] 75 mg PO DAILY #30 tablet 09/07/18 Colchicine [Colcrys *] 0.6 mg PO BID PRN #10 tab 09/07/18 Furosemide [Lasix*] 40 mg PO BIDL #60 tab 09/07/18 Lisinopril [Prinivil*] 10 mg PO DAILY #30 tab 09/07/18 Metoprolol Tartrate [Lopressor*] 12.5 mg PO DAILY #30 tab 09/07/18 Pantoprazole [Protonix Tab*] 40 mg PO DAILYAC #30 tab 09/07/18 New Medications: Aspirin Chewable [Aspirin Chewable*] 81 mg PO DAILY #90 tab.chew Atorvastatin Calcium [Lipitor] 80 mg PO BEDTIME #30 tab Clopidogrel Bisulfate [Plavix*] 75 mg PO DAILY #30 tablet Colchicine [Colcrys *] 0.6 mg PO BID PRN #10 tab PRN Reason: Pain Scale 2-4 (Mild) Furosemide [Lasix*] 40 mg PO BIDL #60 tab Lisinopril [Prinivil*] 10 mg PO DAILY #30 tab Metoprolol Tartrate [Lopressor*] 12.5 mg PO DAILY #30 tab Pantoprazole [Protonix Tab*] 40 mg PO DAILYAC #30 tab Patient Discharge Instructions: 1. Patient will establish care with a PCP to follow up this hospitalization. 2. Patient presented with chest pain and shortness of breath. Patient found to have non ST wave MS. Patient seen and evaluated by Cardiology. Heart catheterization recommended. Heart catheterization showed severe Coronary artery disease. Angioplasty and stent to the distal RCA was performed due to significant stenosis. Heart catheterization also showed completely occluded LAD with some collaterals. Patient tolerated procedure well. Patient had chest pain thereafter. Patient was monitored and reassessed by Cardiology. No need for further intervention. Patient given colchicine with improvement. At discharge patient will continue with aspirin 81 mg daily, Plavix 75 mg daily, lisinopril 10 mg daily, Lipitor 80 mg daily, and metoprolol 12.5 mg daily. Patient will continue with colchicine 0.6 mg one pill twice daily as needed for chest pain, may need to hold medication if diarrhea begins. If chest pain persists he is to contact cardiology for further recommendation. Patient will be provided information to establish care with a PCP. Compliance with medication addressed in detail. Education on MS, CAD addressed in detail. Recommend to follow up with cardiology in 1-2 weeks. 3. Patient with hypertension. At discharge patient will continue with lisinopril 10 mg daily and metoprolol Toprol 5 mg daily. Recommendation is to maintain blood pressures less 150/80. Further adjustment can be done by his PCP or cardiology. Patient may need to hold medication if blood pressure systolic less than 110. 4. Patient with hyperlipidemia. Patient will continue with Lipitor 80 mg daily. Lifestyle modification education will be provided. 5. Patient likely with underlying GERD. Patient will continue with Protonix 40 mg daily. 6. Patient likely with underlying acute on chronic diastolic CHF. At discharge he will continue with a 1500 cc per day fluid restriction and low-salt diet. Patient will continue with Lasix 40 mg 1 pill twice daily. He is to monitor his weight daily. If his weight increases by more than 5 lb he is to contact cardiology for further recommendation. Further adjustment in medication may be required. This can be further addressed by cardiology. Diet: AHA Activity: Ad genaro Time spent managing pt's care (in minutes): 55
[2018-09-07] MEDS: ATORVASTATIN 80 MG TAB PO SCH (19:46)
[2018-09-07] MEDS: TRAMADOL HCL 50 MG TAB PO PRN (19:46)
[2018-09-08] MEDS ORDERED: NA CHLORIDE 0.9% 500 ML IV ONE (03:04)
[2018-09-08] MEDS ORDERED: NA CHLORIDE 0.9% 500 ML ONE (03:05)
[2018-09-08] MEDS: METOPROLOL XL 50 MG TAB PO SCH (04:46)
[2018-09-08] MEDS: PANTOPRAZOLE 40MG TABLET PO SCH (05:47)
[2018-09-08 06:31] LABS: Absolute Lymphocytes (CBC) 1.4 K/uL (0.7-4.9); Absolute Monocytes 1.4 K/uL (0.1-1.3); Absolute Neutrophil 8.4 K/uL (1.8-8.0); Basophils % 0.3 % (0-1.3); Eosinophils % 0.3 % (0-4.4); Hematocrit 44.5 % (39.6-49.0); Lymphocytes % 12.1 % (15.3-44.8); MPV 9.2 fL (7.6-11.3); Monocytes % 12.7 % (3.3-12.3); RBC Red Blood Cell Count 4.98 M/uL (4.33-5.43)
[2018-09-08 06:49] LABS: Magnesium 2.2 mg/dL (1.8-2.4); Potassium 3.7 mmol/L (3.5-5.1)
[2018-09-08] MEDS ORDERED: NA CHLORIDE 0.9% 250 ML IV PRN (07:53)
[2018-09-08] MEDS: FUROSEMIDE 40 MG TABLET PO SCH (08:35)
[2018-09-08] MEDS: LISINOPRIL 10 MG TAB PO SCH (08:36)
[2018-09-08] MEDS: ASPIRIN EC 81 MG TAB PO SCH (09:00)
[2018-09-08] MEDS: COLCHICINE 0.6 MG TAB PO SCH ×2 (09:19→20:12)
--- NOTE | 2018-09-08 10:44 | ECHO ---
HEIGHT: 5 ft 5 in WEIGHT: 172 lb 14.4 oz DATE OF STUDY: 09/08/[address]: El Gunderson DO 2-DIMENSIONAL: YES M.MODE: YES DOPPLER: YES COLOR FLOW: YES TDS: NO PORTABLE: NO DEFINITY: NO BUBBLE STUDY: NO DIAGNOSIS: EVALUATE FOR PERICARDIAL EFFUSION CARDIAC HISTORY: CATHERIZATION: YES SURGERY: NO PROSTHETIC VALVE: NO PACEMAKER: NO MEASUREMENTS (cm) DIASTOLIC (NORMALS) SYSTOLIC (NORMALS) IVSd 1.0 (0.6-1.2) LA Diam 3.4 (1.9-4.0) LVEF 51% LVIDd 4.8 (3.5-5.7) LVIDs 3.6 (2.0-3.5) %FS 26% LVPWd 1.1 (0.6-1.2) Ao Diam 3.0 (2.0-3.7) 2 DIMENSIONAL ASSESSMENT: RIGHT ATRIUM: NORMAL LEFT ATRIUM: NORMAL RIGHT VENTRICLE: NORMAL LEFT VENTRICLE: NORMAL TRICUSPID VALVE: NORMAL MITRAL VALVE: NORMAL PULMONIC VALVE: NORMAL AORTIC VALVE: NORMAL PERICARDIAL EFFUSION: NONE AORTIC ROOT: NORMAL LEFT VENTRICULAR WALL MOTION: ANTEROAPICAL AKINESIS. DOPPLER/COLOR FLOW: NORMAL COMMENTS: NORMAL LEFT VENTRICULAR EJECTION FRACTION WITH ANTEROAPICAL AKINESIS. OTHERWISE NORMAL 2D ECHOCARDIOGRAM WITH DOPPLER. TECHNOLOGIST: Rosemarie LYON
--- NOTE | 2018-09-08 13:52 | P.PN ---
Subjective Date of Service: 09/08/18 Primary Care Provider: None; Cardiology-Dr. Mtz Chief Complaint: Chest pain Subjective: Other (Patient had low blood pressure this morning. Patient given fluid bolus.) Physical Examination - Vital Signs Temperature: 98.2 F Blood Pressure: 88/64 Pulse: 87 Respirations: 18 Pulse Ox (%): 95 - Physical Exam General: Alert, In no apparent distress, Oriented x3, Cooperative HEENT: Atraumatic Neck: Supple Respiratory: Clear to auscultation bilaterally, Normal air movement Cardiovascular: Normal pulses, Regular rate/rhythm Gastrointestinal: Normal bowel sounds, Soft and benign, Non-distended, No masses , No rebound, No guarding Musculoskeletal: No tenderness, No warmth Integumentary: No erythema, No warmth, No cyanosis Neurological: Normal speech, Normal strength at 5/5 x4 extr, Normal tone, Normal affect - Studies Medications List Reviewed: Yes Assessment & Plan Discharge Plan: Home Plan to discharge in: 48 Hours Physician Review Additional Text: Impression: Chest pain secondary to NSTEMI with severe Coronary artery disease status post angioplasty and stent to the distal RCA with noted completely occluded LAD with some collaterals complicated with suspected acute on chronic diastolic CHF Hypotension with history of Hypertension, uncontrolled Hyperlipidemia Obesity, BMI 30 GERD Plan: Chest pain secondary to NSTEMI with severe Coronary artery disease status post angioplasty and stent to the distal RCA with noted completely occluded LAD with some collaterals complicated with suspected acute on chronic diastolic CHF: Chest pain improved. Patient had low blood pressure this morning. Fluid bolus given. Patient seen by Cardiology. Stat echocardiogram unremarkable. Patient may have been over diuresed. Will discontinue diuretic therapy. Will provide IV fluids. Will continue to monitor closely. Will discontinue DANIELITO-inhibitor at this time. Will hold beta-donavan therapy if blood pressure systolic less than 120. Will need to get his blood pressure is better stabilize before discharge. Anticipate discharge in the next 1-2 days. Hypotension with history Hypertension, uncontrolled: Discontinue lisinopril. Will hold metoprolol if blood pressure less than 110 systolic. Will continue to monitor and adjust. Hyperlipidemia: Continue medication. Obesity, BMI 30: Will address lifestyle modification education. GERD: Continue medication. Time Spent Managing Pts Care (In Minutes): 55
[2018-09-08] MEDS: ENOXAPARIN 40 MG/0.4 ML SQ SCH (14:04)
[2018-09-08] MEDS: CLOPIDOGREL 75 MG TABLET PO SCH (14:04)
[2018-09-08] MEDS: NA CHLORIDE 0.9% 1,000 ML IV SCH (14:05)
--- NOTE | 2018-09-08 19:57 | PN ---
Mr. Song has developed hypotension, he is not on any medicines that make him hypotensive. A rou arturo echo today is showing preserved ejection fraction. No pericardial effusion or tamponade. Blood count is normal. He is asymptomatic with his hypotension. We are just going to give him more fluid s, avoid any blood pressure medicines and see if his blood pressure will come up shortly. JACITNO/ELISEO Voice ID: [id number] Report ID: [id number]
[2018-09-08] MEDS: ATORVASTATIN 80 MG TAB PO SCH (20:14)
[2018-09-09] MEDS: NA CHLORIDE 0.9% 1,000 ML IV SCH ×2 (03:04→20:25)
[2018-09-09] MEDS: METOPROLOL XL 50 MG TAB PO SCH (05:12)
[2018-09-09] MEDS: PANTOPRAZOLE 40MG TABLET PO SCH (05:40)
[2018-09-09 05:44] LABS: Absolute Lymphocytes (CBC) 1.4 K/uL (0.7-4.9); Absolute Monocytes 0.9 K/uL (0.1-1.3); Absolute Neutrophil 6.2 K/uL (1.8-8.0); Basophils % 0.5 % (0-1.3); Hematocrit 41.8 % (39.6-49.0); Lymphocytes % 16.2 % (15.3-44.8); Monocytes % 10.2 % (3.3-12.3); RBC Red Blood Cell Count 4.64 M/uL (4.33-5.43)
[2018-09-09 05:54] LABS: Potassium 3.5 mmol/L (3.5-5.1)
[2018-09-09] MEDS ORDERED: POTASSIUM CL SA 10 MEQ TAB PO ONE (05:59)
[2018-09-09] MEDS: COLCHICINE 0.6 MG TAB PO SCH ×2 (08:33→20:25)
[2018-09-09] MEDS: ENOXAPARIN 40 MG/0.4 ML SQ SCH (08:33)
[2018-09-09] MEDS: CLOPIDOGREL 75 MG TABLET PO SCH (08:50)
--- NOTE | 2018-09-09 08:52 | PN ---
Mr. Song's echo looks the same. He is hypotensive without any pericardial effusion without any blood pressure lowering medicines, without anemia, or dehydration. I think Mr. Song probably wo uld benefit from getting more blood flow to the front part of his heart having total revascularizatio n. His LAD is totally occluded. There is hypokinesis there, but I would not be surprised that the w all-motion would improve if he had bypass. I will discuss this with the heart surgeon to see if we c an initiate a transfer to [facility] for perhaps some kind of a viability study of the anterior wall of his heart. JACINTO/MODL Voice ID: [id number] Report ID: [id number]
[2018-09-09] MEDS: ASPIRIN EC 81 MG TAB PO SCH (09:00)
--- NOTE | 2018-09-09 10:03 | P.PN ---
Subjective Date of Service: 09/09/18 Primary Care Provider: None; Cardiology-Dr. Mtz Chief Complaint: Chest pain Subjective: Other (Patient remained stable. Blood pressure improved with hydration. Still with chest pain especially with exertion) Physical Examination - Vital Signs Temperature: 98.8 F Blood Pressure: 101/68 Pulse: 65 Respirations: 18 Pulse Ox (%): 98 - Physical Exam General: Alert, In no apparent distress, Oriented x3, Cooperative HEENT: Atraumatic Neck: Supple Respiratory: Clear to auscultation bilaterally, Normal air movement Cardiovascular: Normal pulses, Regular rate/rhythm Gastrointestinal: Normal bowel sounds, Soft and benign, Non-distended Musculoskeletal: No erythema, No tenderness, No warmth Integumentary: No erythema, No warmth, No cyanosis Neurological: Normal speech, Normal strength at 5/5 x4 extr, Normal tone, Normal affect - Studies Medications List Reviewed: Yes Assessment & Plan Discharge Plan: Transfer Plan to discharge in: 24 Hours Physician Review Additional Text: Impression: Chest pain secondary to NSTEMI with severe Coronary artery disease status post angioplasty and stent to the distal RCA with noted completely occluded LAD with some collaterals complicated with suspected acute on chronic diastolic CHF Hypotension with history of Hypertension, uncontrolled Hyperlipidemia Obesity, BMI 30 GERD Plan: Chest pain secondary to NSTEMI with severe Coronary artery disease status post angioplasty and stent to the distal RCA with noted completely occluded LAD with some collaterals complicated with suspected acute on chronic diastolic CHF: Chest pain improved but still present with exertion. Patient started on IV fluids yesterday. Patient off diuretic therapy and blood pressure medication due to low blood pressure. Blood pressure remains low. Cardiology recommends transfer to [facility] center to further evaluate his condition and consider bypass. Cardiology to discuss with CV surgery. Anticipate transfer. Will continue to hold blood pressure medication if systolic less than 120. Will monitor closely. Hypotension with history Hypertension, uncontrolled: Lisinopril discontinued. Metoprolol decreased. Will continue to hold blood pressure medication if systolic less than 120. So far patient not able to tolerate medication. Continue IV fluids. Continue as above as recommended by Cardiology. Possible transfer to CV surgery Hyperlipidemia: Continue medication. Obesity, BMI 30: Will address lifestyle modification education. GERD: Continue medication. Time Spent Managing Pts Care (In Minutes): 55
[2018-09-09] MEDS: ATORVASTATIN 80 MG TAB PO SCH (20:25)
[2018-09-10 05:30] LABS: BUN Blood Urea Nitrogen 13 mg/dL (7-18); Bicarbonate 28 mmol/L (21-32); Glucose Level 105 mg/dL (74-106); Potassium 3.5 mmol/L (3.5-5.1); Sodium Level 140 mmol/L (136-145)
[2018-09-10] MEDS: METOPROLOL XL 50 MG TAB PO SCH (05:30)
[2018-09-10] MEDS ORDERED: POTASSIUM CL SA 10 MEQ TAB PO ONE (05:31)
[2018-09-10] MEDS: NA CHLORIDE 0.9% 1,000 ML IV SCH ×2 (05:49→10:30)
[2018-09-10] MEDS: PANTOPRAZOLE 40MG TABLET PO SCH (05:50)
[2018-09-10] MEDS: COLCHICINE 0.6 MG TAB PO SCH ×2 (07:39→20:27)
[2018-09-10] MEDS: CLOPIDOGREL 75 MG TABLET PO SCH (07:39)
[2018-09-10] MEDS: ENOXAPARIN 40 MG/0.4 ML SQ SCH (07:39)
[2018-09-10] MEDS: ASPIRIN EC 81 MG TAB PO SCH (07:39)
--- NOTE | 2018-09-10 10:21 | P.PN ---
Subjective Date of Service: 09/10/18 Primary Care Provider: None; Cardiology-Dr. Mtz Chief Complaint: Chest pain Subjective: Doing well (Overall stable. Chest pain improved. Blood pressure is still on the low side.) Physical Examination - Vital Signs Temperature: 98.2 F Blood Pressure: 100/69 Pulse: 62 Respirations: 16 Pulse Ox (%): 97 - Physical Exam General: Alert, In no apparent distress, Oriented x3, Cooperative HEENT: Atraumatic Neck: Supple Respiratory: Clear to auscultation bilaterally, Normal air movement Cardiovascular: Normal pulses, Regular rate/rhythm Gastrointestinal: Normal bowel sounds, Soft and benign, Non-distended, No tenderness, No masses, No rebound, No guarding Musculoskeletal: No erythema, No tenderness, No warmth Integumentary: No tenderness/swelling, No erythema, No warmth, No cyanosis Neurological: Normal speech, Normal strength at 5/5 x4 extr, Normal tone, Normal affect - Studies Medications List Reviewed: Yes Assessment & Plan Discharge Plan: Transfer Plan to discharge in: 24 Hours Physician Review Additional Text: Impression: Chest pain secondary to NSTEMI with severe Coronary artery disease status post angioplasty and stent to the distal RCA with noted completely occluded LAD with some collaterals complicated with suspected acute on chronic diastolic CHF Hypotension with history of Hypertension, uncontrolled Hyperlipidemia Obesity, BMI 30 GERD Plan: Chest pain secondary to NSTEMI with severe Coronary artery disease status post angioplasty and stent to the distal RCA with noted completely occluded LAD with some collaterals complicated with suspected acute on chronic diastolic CHF: Chest pain improved but still present with exertion. Will decrease IV fluids. Blood pressure still low off blood pressure medication. Will need to continue to hold blood pressure medication if systolic less than 120. Case discussed at length with cardiology yesterday. Cardiology plans to discuss case further with CV surgery as the patient likely requires CV surgery due to his current status. Suspect transfer in the next 1-2 days if approved by CV surgery. I will turn the service over to Dr. Tinajero tomorrow. I will go over the plan of care with her. Hypotension with history Hypertension, uncontrolled: Lisinopril discontinued. Metoprolol decreased. Will continue to hold blood pressure medication if systolic less than 120. So far patient not able to tolerate medication. IV fluid adjusted. Continue as above as recommended by Cardiology. Anticipate transfer to CV surgery Hyperlipidemia: Continue medication. Obesity, BMI 30: Will address lifestyle modification education. GERD: Continue medication. Time Spent Managing Pts Care (In Minutes): 55
--- NOTE | 2018-09-10 14:54 | PN ---
Mr. Song is no longer having chest pain. Blood pressure is better. His chest pain was pleuriti c, not ischemic. So, in every way, he seems to be doing well with medical therapy today. If the herbert munroe is true tomorrow, I would recommend he be discharged home, and if he needs a bypass surgery, we johnathan l arrange it with him as an outpatient. [place]TE Voice ID: [id number] Report ID: [id number]
[2018-09-10] MEDS: ATORVASTATIN 80 MG TAB PO SCH (20:27)
[2018-09-11] MEDS: NA CHLORIDE 0.9% 1,000 ML IV SCH ×2 (00:49→07:00)
[2018-09-11 05:08] LABS: Potassium 3.9 mmol/L (3.5-5.1)
[2018-09-11] MEDS: METOPROLOL XL 50 MG TAB PO SCH (06:11)
[2018-09-11] MEDS: PANTOPRAZOLE 40MG TABLET PO SCH (06:11)
[2018-09-11 08:23] VITALS: O2SAT 97
[2018-09-11] MEDS: ENOXAPARIN 40 MG/0.4 ML SQ SCH (08:49)
[2018-09-11] MEDS: CLOPIDOGREL 75 MG TABLET PO SCH (08:50)
[2018-09-11] MEDS: ASPIRIN EC 81 MG TAB PO SCH (08:50)
[2018-09-11] MEDS: COLCHICINE 0.6 MG TAB PO SCH (08:57)
[2018-09-11] MEDS ORDERED: POTASSIUM CL SA 10 MEQ TAB PO ONE (09:00)
--- NOTE | 2018-09-11 12:59 | P.DS ---
Admission Date: 09/05/18 Discharge Date: 09/11/18 Primary Care Provider: None; Cardiology-Dr. Mtz Disposition: ROUTINE DISCHARGE Discharge Condition: GOOD Reason for Admission: Chest pain Consultations: Dr. Mtz, cardiology Procedures: CT scan: FINDINGS: No evidence of pulmonary thromboembolism. No acute aortic finding demonstrated. Mild to moderate interstitial pulmonary edema seen. No significant pericardial or pleural fluid. No concerning bony finding. IMPRESSION: No evidence of pulmonary thromboembolism. [id number]-rxvdwoek interstitial pulmonary edema. ECHO: Ejection fraction 55% LEFT VENTRICULAR WALL MOTION: ANTEROAPICAL HYPOKINESIS. DOPPLER/COLOR FLOW: NORMAL. COMMENTS: NORMAL LEFT VENTRICULAR EJECTION FRACTION WITH WILBER-APICAL HYPOKINESIS. DILATED LEFT ATRIUM. NO PERICARDIAL EFFUSION COMPARED TO 09/05/18 THE ANTERIOR HYPOKINESIS HAS IMPROVED. Heart Catheterization: Surgeon: Jair Gonzalez MD Assistant Producer: Josr Chaudhari. Indications: Admitted on 09/04/[address] Gunderson' service with a non-ST elevation myocardial infarction. Procedure In Detail: The patient brought to the [facility] on 09/05/2018 for non- ST elevation myocardial infarction. He had a distal 99% RCA with some thrombus. He had a completely occluded distal OM3 with collaterals from the RCA. He had a completely occluded LAD with some collaterals from the RCA. He had multiple diagonal stenosis. Patient was treated for the culprit lesion, which was obviously the RCA based on the look of it. We used the balloon 2.5 x 12 Emerge to predilate a [place] wire to cross [employer] Synergy stent 3.0 x 12 to deploy in the lesion with 0% residual. There were no complications. Blood Loss: 5 cc. Postoperative Diagnosis: Severe coronary artery disease status post primary angioplasty and stent of the distal RCA. Brief History of Present Illness: Medical Problem List: Chest pain secondary to NSTEMI with prior CAD and stent placed to the LAD in 2012 with poor follow up Hypertension, uncontrolled Suspect acute on chronic diastolic CHF Hyperlipidemia Obesity, BMI 30 GERD 62-year-old male presented to emergency room with chest pain. He has reported chest pain for the past 4 weeks. Over the last 2 days and last night chest pain was severe. It was mainly to the substernal region. It radiated to the right arm and neck. Patient denied any significant nausea, vomiting. Mild shortness of breath noted. Patient with history of hypertension and stent placed in the past. Patient has not followed up with cardiology. Patient appears to not be compliant with his medication. In the ER patient evaluated. Initial blood pressure is elevated. If cardiac enzymes unremarkable. Chest x-ray shows mild prominence to the mediastinum. CBC and BMP unremarkable. Patient admitted for further evaluation. When I saw the patient the ER, he appeared comfortable. Blood pressure slightly elevated. Patient has not followed up with cardiology recently. Previous heart catheterization showed significant stenosis to the LAD. Stent placed. He has not followed up since that time. Hospital Course: Patient presented with chest pain and shortness of breath. Patient found to have NSTEMI. Patient seen evaluated by Cardiology. Initial CT chest showed some pulmonary edema. Patient was placed on diuretic therapy. Heart catheterization was done. Heart catheterization showed severe Coronary artery disease. Angioplasty and stent to the distal RCA was performed due to significant stenosis. Heart catheterization also showed completely occluded LAD with some collaterals. Patient tolerated procedure well. Patient had chest pain thereafter. Patient was monitored and reassessed by Cardiology. No need for further intervention. Patient given colchicine with improvement. At discharge patient will continue with aspirin 81 mg daily, Plavix 75 mg daily, Lipitor 80 mg daily, and metoprolol 12.5 mg daily. Patient will continue with colchicine 0.6 mg one pill twice daily as needed for chest pain, may need to hold medication if diarrhea begins. If chest pain persists he is to contact cardiology for further recommendation. Patient will be provided information to establish care with a PCP. Compliance with medication addressed in detail. Education on NE, CAD addressed in detail. Recommend to follow up with cardiology in 1-2 weeks. Patient did have episode of hypotension and his BP medications were held. His BP stabilized off of lisinopril. Will discontinue lisinopril prior to discharge. This can be further managed by PCP or cardiology and may be added on at a later time if BP increases. Patient with hypertension. At discharge patient will continue with metoprolol Toprol 5 mg daily. Recommendation is to maintain blood pressures less 150/80. Further adjustment can be done by his PCP or cardiology. Patient may need to hold medication if blood pressure systolic less than 110. Patient with hyperlipidemia. Patient will continue with Lipitor 80 mg daily. Lifestyle modification education will be provided. Patient likely with underlying GERD. Patient will continue with Protonix 40 mg daily. Patient likely with underlying acute on chronic diastolic CHF. At discharge he will continue with a 1500 cc per day fluid restriction and low-salt diet. Patient will continue with Lasix 40 mg 1 pill twice daily. He is to monitor his weight daily. If his weight increases by more than 5 lb he is to contact cardiology for further recommendation. Further adjustment in medication may be required. This can be further addressed by cardiology. Vital Signs/Physical Exam: Temp Pulse Resp BP Pulse Ox 97.7 F 69 18 112/79 97 09/11/18 12:00 09/11/18 12:00 09/11/18 12:00 09/11/18 12:00 09/11/18 12:00 General: Alert, In no apparent distress, Oriented x3 HEENT: Atraumatic, PERRLA, EOMI Neck: Supple, JVD not distended Respiratory: Clear to auscultation bilaterally, Normal air movement Cardiovascular: Regular rate/rhythm, Normal S1 S2 Gastrointestinal: Normal bowel sounds, No tenderness Musculoskeletal: No tenderness Integumentary: No rashes Neurological: Normal speech, Normal tone, Normal affect Lymphatics: No axilla or inguinal lymphadenopathy Laboratory Data at Discharge: WBC 8.7 K/uL (4.3-10.9) D 09/09/18 04:57 Hgb 14.0 g/dL (13.6-17.9) 09/09/18 04:57 Hct 41.8 % (39.6-49.0) 09/09/18 04:57 Plt Count 200 K/uL (152-406) 09/09/18 04:57 PT 12.5 SECONDS (9.5-12.5) 09/04/18 13:49 INR 1.06 09/04/18 13:49 Sodium 141 mmol/L (136-145) 09/11/18 04:08 Potassium 3.9 mmol/L (3.5-5.1) 09/11/18 04:08 BUN 11 mg/dL (7-18) 09/11/18 04:08 Creatinine 0.87 mg/dL (0.55-1.3) 09/11/18 04:08 Glucose 103 mg/dL (74-106) 09/11/18 04:08 Magnesium 2.0 mg/dL (1.8-2.4) 09/09/18 04:57 Total Bilirubin 0.4 mg/dL (0.2-1.0) 09/04/18 13:49 AST 17 U/L (15-37) 09/04/18 13:49 ALT 32 U/L (12-78) 09/04/18 13:49 Alkaline Phosphatase 81 U/L (45-117) 09/04/18 13:49 Troponin I 0.13 ng/mL (0.0-0.045) H 09/05/18 06:04 Triglycerides 200 mg/dL (<150) H 09/06/18 04:49 Cholesterol 272 mg/dL (<200) H 09/06/18 04:49 HDL Cholesterol 50 mg/dL (40-60) 09/06/18 04:49 Cholesterol/HDL Ratio 5.44 09/06/18 04:49 Home Medications: Aspirin Chewable [Aspirin Chewable*] 81 mg PO DAILY #90 tab.chew 09/07/18 Atorvastatin Calcium [Lipitor] 80 mg PO BEDTIME #30 tab 09/07/18 Clopidogrel Bisulfate [Plavix*] 75 mg PO DAILY #30 tablet 09/07/18 Colchicine [Colcrys *] 0.6 mg PO BID PRN #10 tab 09/07/18 Furosemide [Lasix*] 40 mg PO BIDL #60 tab 09/07/18 Metoprolol Tartrate [Lopressor*] 12.5 mg PO DAILY #30 tab 09/07/18 Pantoprazole [Protonix Tab*] 40 mg PO DAILYAC #30 tab 09/07/18 New Medications: Aspirin Chewable [Aspirin Chewable*] 81 mg PO DAILY #90 tab.chew Atorvastatin Calcium [Lipitor] 80 mg PO BEDTIME #30 tab Clopidogrel Bisulfate [Plavix*] 75 mg PO DAILY #30 tablet Colchicine [Colcrys *] 0.6 mg PO BID PRN #10 tab PRN Reason: Pain Scale 2-4 (Mild) Furosemide [Lasix*] 40 mg PO BIDL #60 tab Metoprolol Tartrate [Lopressor*] 12.5 mg PO DAILY #30 tab Pantoprazole [Protonix Tab*] 40 mg PO DAILYAC #30 tab Patient Discharge Instructions: 1. Patient will establish care with a PCP to follow up this hospitalization. 2. Patient presented with chest pain and shortness of breath. Patient found to have non ST wave NE. Patient seen and evaluated by Cardiology. Heart catheterization recommended. Heart catheterization showed severe Coronary artery disease. Angioplasty and stent to the distal RCA was performed due to significant stenosis. Heart catheterization also showed completely occluded LAD with some collaterals. Patient tolerated procedure well. Patient had chest pain thereafter. Patient was monitored and reassessed by Cardiology. No need for further intervention. Patient given colchicine with improvement. At discharge patient will continue with aspirin 81 mg daily, Plavix 75 mg daily, lisinopril 10 mg daily, Lipitor 80 mg daily, and metoprolol 12.5 mg daily. Patient will continue with colchicine 0.6 mg one pill twice daily as needed for chest pain, may need to hold medication if diarrhea begins. If chest pain persists he is to contact cardiology for further recommendation. Patient will be provided information to establish care with a PCP. Compliance with medication addressed in detail. Education on NE, CAD addressed in detail. Recommend to follow up with cardiology in 1-2 weeks. 3. Patient with hypertension. At discharge patient will continue with lisinopril 10 mg daily and metoprolol Toprol 5 mg daily. Recommendation is to maintain blood pressures less 150/80. Further adjustment can be done by his PCP or cardiology. Patient may need to hold medication if blood pressure systolic less than 110. 4. Patient with hyperlipidemia. Patient will continue with Lipitor 80 mg daily. Lifestyle modification education will be provided. 5. Patient likely with underlying GERD. Patient will continue with Protonix 40 mg daily. 6. Patient likely with underlying acute on chronic diastolic CHF. At discharge he will continue with a 1500 cc per day fluid restriction and low-salt diet. Patient will continue with Lasix 40 mg 1 pill twice daily. He is to monitor his weight daily. If his weight increases by more than 5 lb he is to contact cardiology for further recommendation. Further adjustment in medication may be required. This can be further addressed by cardiology. Diet: AHA Activity: Ad genaro Followup: Dex Mtz MD [ACTIVE - CAN ADMIT] - Time spent managing pt's care (in minutes): 55
[2018-09-11 18:46] VITALS: BP 123/81; TEMP 97.3
== END 2018-09-11 16:45 | disposition home or self-care (01) | DRG 246 ==
LOC: ER 13:08 → ERHOLD 15:25 → 4TH 20:01 → OBSVTOIN 09-05 09:04 → 3RD-ICU 09-05 16:12 → 4TH 09-07 18:00
PROVIDERS: ADMIT Family Medicine; ATTEND Family Medicine
PROC: 027034Z Dilation of Coronary Artery, One Artery with Drug-eluting Intraluminal Device, Percutaneous Approach (ICD-10-PCS; principal; 2018-09-05)
PROC: 4A023N7 Measurement of Cardiac Sampling and Pressure, Left Heart, Percutaneous Approach (ICD-10-PCS; 2018-09-05)
PROC: B211YZZ Fluoroscopy of Multiple Coronary Arteries using Other Contrast (ICD-10-PCS; 2018-09-05)
DX: I21.4 Non-ST elevation (NSTEMI) myocardial infarction (principal); I50.33 Acute on chronic diastolic (congestive) heart failure; I25.10 Atherosclerotic heart disease of native coronary artery without angina pectoris; I25.82 Chronic total occlusion of coronary artery; I95.9 Hypotension, unspecified; E78.5 Hyperlipidemia, unspecified; K21.9 Gastro-esophageal reflux disease without esophagitis; I11.0 Hypertensive heart disease with heart failure; Z91.14 Patient's other noncompliance with medication regimen; Z95.5 Presence of coronary angioplasty implant and graft; E66.9 Obesity, unspecified; Z87.891 Personal history of nicotine dependence; Z68.30 Body mass index [BMI] 30.0-30.9, adult
CPT/HCPCS: 36415; 71045; 71046; 71275; 80048; 80061; 80076; 81003; 81015; 82550; 82553; 82962; 83735; 83880; 84439; 84443; 84484; 85025; 85610; 87045; 87046; 87086; 87088; 87493; 92928; 93005; 93306; 93454; 99285; C1725; C1760; C1893; G0378; J0583; J1650; J1940; J2250; J2270; J2405; J3010; J7030; Q9967

== ENCOUNTER 2021-01-14 21:19 | Inpatient (IN) | payer SELFPAY ==
[2021-01-14] MEDS ORDERED: IBUPROFEN 200 MG TAB PO ONE ×2 (22:46→23:44)
[2021-01-14] MEDS ORDERED: IBUPROFEN 400 MG TAB ONE ×2 (22:46→23:44)
[2021-01-15] MEDS ORDERED: AZITHROMYCIN 500 MG INJ IVPB ONE (00:15)
[2021-01-15] MEDS ORDERED: ACETAMINOPHEN 500 MG TAB ONE ×2 (00:15→21:15)
[2021-01-15] MEDS ORDERED: NA CHLORIDE 0.9% 250 ML ONE (00:15)
[2021-01-15] MEDS ORDERED: NA CHLORIDE 0.9% 1,000 ML ONE (00:15)
[2021-01-15 00:19] LABS: Absolute Lymphocytes (CBC) 0.4 K/uL (0.7-4.9); Basophils % 0.3 % (0-1.3); Hematocrit 45.3 % (39.6-49.0); Lymphocytes % 7.4 % (15.3-44.8); MPV 9.4 fL (7.6-11.3); Protime INR 1.13
--- NOTE | 2021-01-15 00:24 | P.HP ---
Certification for Inpatient Patient admitted to: Inpatient With expected LOS: >2 Midnights Patient will require the following post-hospital care: None Practitioner: I am a practitioner with admitting privileges, knowledge of patient current condition, hospital course, and medical plan of care. Services: Services provided to patient in accordance with Admission requirements found in Title 42 Section 412.3 of the Code of Federal Regulations Patient History Date of Service: 01/15/21 Primary Care Provider: Ted roberson Reason for admission: COVID-19 pneumonia History of Present Illness: 65-year-old male with history of hypertension, CAD presents the emergency department for shortness of breath, chest pain. Patient reports not feeling well over the course of the last 2 to 3 days, was febrile upon presentation to the emergency department. Patient found to be mildly hypoxic saturating in the high 80s to low 90s with exertion. Patient tested positive for Covid, ED provider wishes to admit for further evaluation and management of Covid pneumonia with hypoxia. Allergies No Known Allergies Allergy (Verified 09/04/18 20:35) Home Medications: Aspirin Chewable [Aspirin Chewable*] 81 mg PO DAILY #90 tab.chew 09/07/18 Atorvastatin Calcium [Lipitor] 80 mg PO BEDTIME #30 tab 09/07/18 Clopidogrel Bisulfate [Plavix*] 75 mg PO DAILY #30 tablet 09/07/18 Colchicine [Colcrys *] 0.6 mg PO BID PRN #10 tab 09/07/18 Furosemide [Lasix*] 40 mg PO BIDL #60 tab 09/07/18 Metoprolol Tartrate [Lopressor*] 12.5 mg PO DAILY #30 tab 09/07/18 Pantoprazole [Protonix Tab*] 40 mg PO DAILYAC #30 tab 09/07/18 - Past Medical/Surgical History Diabetic: No -: Hypertension -: CAD with stent to the LAD -: GERD -: Obesity -: Heart catheterization, stent placed -: Left hand surgery Psychosocial/ Personal History: Patient is . He has 5 children. 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 - Social History Alcohol use: No CD- Drugs: No Caffeine use: Yes Review of Systems General: Fever, Chills, Weakness, Malaise Respiratory: Cough, Dry, Shortness of Breath, SOB with Excertion Physical Examination - Physical Exam General: Alert, In no apparent distress HEENT: Atraumatic, PERRLA, Mucous membr. moist/pink, EOMI, Sclerae nonicteric Neck: Supple, 2+ carotid pulse no bruit, No LAD, Without JVD or thyroid abnormality Respiratory: Diminished, Other (Tachypnea, dyspnea) Cardiovascular: Regular rate/rhythm, Normal S1 S2 Gastrointestinal: Normal bowel sounds, No tenderness Musculoskeletal: No tenderness Integumentary: No rashes Neurological: Normal speech, Normal strength at 5/5 x4 extr, Normal tone, Normal affect Lymphatics: No axilla or inguinal lymphadenopathy - Studies Microbiology Data (last 24 hrs): 01/14/21 22:25 Nasopharnyx Influenza Type A Antigen Screen - Final 01/14/21 22:25 Nasopharnyx Influenza Type B Antigen Screen - Final Assessment and Plan - Plan Assessment: Acute hypoxic respiratory failure secondary to COVID-19 pneumonia CAD status post stenting LAD Hypertension Plan: Acute hypoxic respiratory failure secondary to COVID-19 pneumonia: Continue with daily CRP, ferritin levels. Pulmonology consulted. IV steroids, oral supplementation. Daily room air saturations. Patient not vaccinated. CRP significantly elevated, will start barcitinib/pharmacy consult. CAD status post stenting LAD: Obtain and continue home medications Hypertension: Obtain and continue home medications DVT PPX: Lovenox Code status: Full Discharge Plan: Home Plan to discharge in: 48 Hours - Advance Directives Does patient have a Living Will: No Does patient have a Durable POA for Healthcare: No - Code Status/Comfort Care Code Status Assessed: Yes (Full code) Critical Care: No Time Spent Managing Pts Care (In Minutes): 55
[2021-01-15 00:31] LABS: ALT/SGPT 35 U/L (12-78); AST/SGOT 46 U/L (15-37); Albumin 3.5 g/dL (3.4-5.0); Alkaline Phosphatase 65 U/L (45-117); BUN Blood Urea Nitrogen 9 mg/dL (7-18); Bicarbonate 27 mmol/L (21-32); Bilirubin Direct 0.2 mg/dL (0-0.2); Bilirubin Total 0.5 mg/dL (0.2-1.0); Glucose Level 116 mg/dL (74-106); NT PRO-BNP 328 pg/mL (<125); Potassium 3.9 mmol/L (3.5-5.1); Protein, Total 7.3 g/dL (6.4-8.2); Sodium Level 136 mmol/L (136-145); Troponin (Emerg Dept Use Only) < 0.02 ng/mL (0.0-0.045)
--- NOTE | 2021-01-15 00:37 | ER ---
Nurse's Notes [facility] Name: Jose Song Age: 65 yrs Sex: Male : 1955 Arrival Date: 01/14/2021 Time: 21:23 Bed 18 Private MD: Diagnosis: Other viral pneumonia-with COVID 19 Presentation: 01/14 22:09 Chief complaint: Patient states: SOB, neck pain, cough, fatigue, chest pain x 3. Pt kg stated, "I feel bad, I feel like I'm going to have a heart attack. I felt like I was going to pass out.". Coronavirus screen: Client denies travel out of the [place] in the last 14 days. At this time, unable to obtain information related to travel outside the [place] At this time, the client does not indicate any symptoms associated with coronavirus-19. Ebola Screen: Patient negative for fever greater than or equal to 101.5 degrees Fahrenheit, and additional compatible Ebola Virus Disease symptoms Patient denies exposure to infectious person. Patient denies travel to an Ebola-affected area in the 21 days before illness onset. Initial Sepsis Screen: Does the patient meet any 2 criteria? No. Patient's initial sepsis screen is negative. Does the patient have a suspected source of infection? No. Patient's initial sepsis screen is negative. Risk Assessment: Do you want to hurt yourself or someone else? Patient reports no desire to harm self or others. Onset of symptoms was January 11, 2021. 22:09 Method Of Arrival: Wheelchair kg 22:09 Acuity: SHAVON 3 kg Triage Assessment: 22:16 General: Appears in no apparent distress. Behavior is calm, cooperative, appropriate kg for age, quiet. Pain: Complains of pain in chest Pain radiates to Generalized. Cardiovascular: Reports chest pain, shortness of breath. Historical: - Allergies: 22:13 No Known Allergies; kg - Home Meds: 22:13 metoprolol tartrate 50 mg Oral tab [Active]; kg 22:16 Blood thinner- unsure of name [Active]; kg - PMHx: 22:13 Hypertension; MA; kg - PSHx: 22:13 cardiac stents; kg - Immunization history:: Adult Immunizations up to date, Adult Immunizations up to date, Adult Immunizations up to date, Adult Immunizations not up to date, Client reports having NOT received the Covid vaccine. - Social history:: Smoking status: Smoking status: Patient denies any tobacco usage or history of. - Family history:: not pertinent. Screenin:20 Abuse screen: Denies threats or abuse. Denies injuries from another. Nutritional kg screening: No deficits noted. Tuberculosis screening: No symptoms or risk factors identified. Fall Risk None identified. Assessment: 22:21 Pain: Pain began 2-3 days ago. kg 23:20 General: Appears in no apparent distress. Behavior is calm, cooperative, appropriate ea for age. Pain: Denies pain. Neuro: Level of Consciousness is awake, alert, obeys commands, Oriented to person, place, time. Cardiovascular: Patient's skin is warm and dry. Respiratory: Airway is patent Respiratory effort is even, unlabored, Respiratory pattern is regular, symmetrical. Derm: Skin is pink, warm \\T\\ dry. 01/15 00:11 Reassessment: Patient and/or family updated on plan of care and expected duration. Pain ea level reassessed. Patient is alert, oriented x 3, equal unlabored respirations, skin warm/dry/pink. 01:12 Reassessment: Patient and/or family updated on plan of care and expected duration. Pain ea level reassessed. Patient is alert, oriented x 3, equal unlabored respirations, skin warm/dry/pink. Vital Signs: 01/14 22:09 BP 128 / 73; Pulse 93; Resp 20; Temp 101.6(O); Pulse Ox 94% ; Weight 81.65 kg (R); kg Height 5 ft. 5 in. (165.10 cm) (R); 01/15 00:00 BP 124 / 86; Pulse 82; Resp 20 S; Pulse Ox 92% ; ad5 00:11 BP 124 / 96; Pulse 80; Resp 19; Pulse Ox 87% ; ea 01/14 22:09 Body Mass Index 29.95 (81.65 kg, 165.10 cm) kg 00:11 post ambulation O2 sat 87%, pt placed on O2 ea ED Course: 01/14 21:23 Patient arrived in ED. bp1 22:13 Triage completed. kg 22:20 Patient has correct armband on for positive identification. kg 22:21 Antipyretic given from triage as ordered by the ER provider. Arm band placed on left kg wrist. 22:21 Patient maintains SpO2 saturation greater than 95% on room air. kg 22:49 XRAY Chest Pa And Lat (2 Views) In Process Unspecified. EDMS 23:19 Maricarmen Shaw RN is Primary Nurse. ea 23:34 Codey Oseguera MD is Attending Physician. al2 01/15 00:02 Inserted saline lock: 20 gauge in right antecubital area, using aseptic technique. oe Blood collected. 00:36 Migel Dwyer is Hospitalizing Provider. ma2 01:11 No provider procedures requiring assistance completed. Patient admitted, IV remains in ea place. Administered Medications: 01/14 22:30 Drug: Ibuprofen 600 mg Route: PO; em 01/15 01:26 Follow up: Response: No adverse reaction ad5 00:01 Drug: NS 0.9% 1000 ml Route: IV; Rate: 1 bolus; Site: right antecubital; ea 01:24 Follow up: IV Status: Completed infusion; IV Intake: 1000ml ad5 00:01 Drug: AZITHromycin 500 mg Route: IVPB; Infused Over: 1 hrs; Site: right antecubital; ea 01:24 Follow up: Response: No adverse reaction; IV Status: Completed infusion ad5 00:02 Drug: Tylenol 1000 mg Route: PO; ea 01:25 Follow up: Response: No adverse reaction ad5 00:25 Drug: SOLU-Medrol (methylPrednisoLONE) 125 mg Route: IVP; Site: right antecubital; ea 01:11 Follow up: Response: No adverse reaction ea 01:11 Drug: Lovenox (enoxaparin) 80 mg Route: Sub-Q; Site: abdomen; ea 01:11 Follow up: Response: No adverse reaction ea Intake: 01:24 IV: 1000ml; Total: 1000ml. ad5 Outcome: 00:37 Decision to Hospitalize by Provider. ma2 01:11 Admitted to ER Hold. Please see [facility] for further documentation. ea 01:11 Condition: stable 01:11 Instructed on the need for admit, Demonstrated understanding of instructions. 01/17 21:55 Patient left the ED. mw Signatures: Dispatcher [employer] EDMS Donna Caicedo RN RN mw Munoz, Edgar, RN RN Omar Jain Maricarmen Shaw RN RN ea Alzahri, Mohammad, MD MD al2 Jocelyn José Kristen, RN RN kg Felipe Larson Corrections: (The following items were deleted from the chart) 01/14 22:19 22:09 Chief complaint: Patient states: SOB, neck pain, cough, fatigue x 3 kg kg
--- NOTE | 2021-01-15 00:37 | EDPHYS ---
Physician Documentation [facility] Name: Jose Song Age: 65 yrs Sex: Male : 1955 Arrival Date: 01/14/2021 Time: 21:23 Bed 18 Private MD: ED Physician Codey Oseguera HPI: 01/15 00:33 This 65 yrs old Male presents to ER via Wheelchair with complaints of ma2 Breathing Difficulty and cough. 00:33 Onset: gradually, 2 day(s) ago. Associated signs and symptoms: Pertinent positives: ma2 Pertinent negatives: abdominal pain, headache, lower extremity swelling, nausea. Severity of pain: At its worst the pain was mild in the emergency department the pain is unchanged. The patient has not experienced similar symptoms in the past. Patient also states he had chest ache, that is been constant for 2 days every time he coughs, no substernal chest pain pressure,. Historical: - Allergies: 01/14 22:13 No Known Allergies; kg - Home Meds: 22:13 metoprolol tartrate 50 mg Oral tab [Active]; kg 22:16 Blood thinner- unsure of name [Active]; kg - PMHx: 22:13 Hypertension; MN; kg - PSHx: 22:13 cardiac stents; kg - Immunization history:: Adult Immunizations up to date, Adult Immunizations up to date, Adult Immunizations up to date, Adult Immunizations not up to date, Client reports having NOT received the Covid vaccine. - Social history:: Smoking status: Smoking status: Patient denies any tobacco usage or history of. - Family history:: not pertinent. ROS: 01/15 00:33 Constitutional: Negative for fever, chills, and weight loss. ma2 All other systems are negative. Exam: 00:33 Constitutional: This is a well developed, well nourished patient who is awake, alert, ma2 and in no acute distress. Head/Face: Normocephalic, atraumatic. Eyes: Pupils equal round and reactive to light, extra-ocular motions intact. Lids and lashes normal. Conjunctiva and sclera are non-icteric and not injected. Cornea within normal limits. Periorbital areas with no swelling, redness, or edema. ENT: Nares patent. No nasal discharge, no septal abnormalities noted. Tympanic membranes are normal and external auditory canals are clear. Oropharynx with no redness, swelling, or masses, exudates, or evidence of obstruction, uvula midline. Mucous membranes moist. Neck: Trachea midline, no thyromegaly or masses palpated, and no cervical lymphadenopathy. Supple, full range of motion without nuchal rigidity, or vertebral point tenderness. No Meningismus. Chest/axilla: Normal chest wall appearance and motion. Nontender with no deformity. No lesions are appreciated. Cardiovascular: Regular rate and rhythm with a normal S1 and S2. No gallops, murmurs, or rubs. Normal PMI, no JVD. No pulse deficits. Respiratory: Mildly tachypneic to 19, however SPO2 is 90 on room air, he has Rales in both lungs, expiratory otherwise lungs have equal breath sounds bilaterally, No rales wheezes noted. No increased work of breathing, no retractions or nasal flaring. Abdomen/GI: Soft, non-tender, with normal bowel sounds. No distension or tympany. No guarding or rebound. No evidence of tenderness throughout. Back: No spinal tenderness. No costovertebral tenderness. Full range of motion. Skin: Warm, dry with normal turgor. Normal color with no rashes, no lesions, and no evidence of cellulitis. MS/ Extremity: Pulses equal, no cyanosis. Neurovascular intact. Full, normal range of motion. Neuro: Awake and alert, GCS 15, oriented to person, place, time, and situation. Cranial nerves II-XII grossly intact. Motor strength 5/5 in all extremities. Sensory grossly intact. Cerebellar exam normal. Normal gait. Vital Signs: 01/14 22:09 BP 128 / 73; Pulse 93; Resp 20; Temp 101.6(O); Pulse Ox 94% ; Weight 81.65 kg (R); kg Height 5 ft. 5 in. (165.10 cm) (R); 01/15 00:00 BP 124 / 86; Pulse 82; Resp 20 S; Pulse Ox 92% ; ad5 00:11 BP 124 / 96; Pulse 80; Resp 19; Pulse Ox 87% ; ea 01/14 22:09 Body Mass Index 29.95 (81.65 kg, 165.10 cm) kg 00:11 post ambulation O2 sat 87%, pt placed on O2 ea MDM: 01/14 23:57 Patient medically screened. de01/15 00:33 Differential diagnosis: abnormal EKG, anxiety, costochondritis, gastritis, ma2 gastroesophageal reflux disease (GERD), pneumonia. Data reviewed: vital signs, nurses notes. Counseling: I had a detailed discussion with the patient and/or guardian regarding: the historical points, exam findings, and any diagnostic results supporting the discharge/admit diagnosis, the presence of at least one elevated blood pressure reading (>120/80) during this emergency department visit, the need for outpatient follow up. Response to treatment: the patient's symptoms have markedly improved after treatment. 01/14 22:23 Order name: Flu kg 01/14 22:23 Order name: Influenza Screen (A ; Complete Time: 23:34 [facility] 01/14 23:34 Order name: Basic Metabolic Panel [facility] 01/14 23:34 Order name: CBC with Diff; Complete Time: 07:45 [facility] 01/14 23:34 Order name: LFT's; Complete Time: 00:33 [facility] 01/14 23:34 Order name: Magnesium; Complete Time: 00:33 [facility] 01/14 23:34 Order name: NT PRO-BNP; Complete Time: 00:33 [facility] 01/14 23:34 Order name: PT-INR; Complete Time: 00:33 [facility] 01/14 23:34 Order name: Troponin (emerg Dept Use Only); Complete Time: 00:33 [facility] 01/14 23:35 Order name: Basic Metabolic Panel; Complete Time: 00:33 [facility] 01/14 23:36 Order name: CRP; Complete Time: 00:41 la1 01/14 23:55 Order name: SARS-COV-2 RT PCR; Complete Time: 23:56 [facility] 01/15 00:21 Order name: Manual Differential; Complete Time: 07:45 [facility] 01/14 22:23 Order name: XRAY Chest Pa And Lat (2 Views); Complete Time: 07:45 kg 01/16 05:13 Order name: CBC with Automated Diff [facility] 01/16 05:23 Order name: D-Dimer [facility] 01/16 05:32 Order name: Comprehensive Metabolic Panel [facility] 01/16 05:32 Order name: Lipid Profile [facility] 01/16 05:32 Order name: C-Reactive Protein [facility] 01/16 05:32 Order name: T4 Free EDMS 01/16 05:32 Order name: Magnesium EDMS 01/16 05:32 Order name: Thyroid Stimulating Hormone EDMS 01/16 05:46 Order name: Ferritin EDMS 01/17 05:46 Order name: CBC with Automated Diff EDMS 01/17 05:49 Order name: D-Dimer EDMS 01/17 05:58 Order name: Comprehensive Metabolic Panel EDMS 01/17 05:58 Order name: C-Reactive Protein EDMS 01/17 05:58 Order name: Magnesium EDMS 01/17 05:58 Order name: Ferritin EDMS 01/14 23:34 Order name: EKG; Complete Time: 23:35 ma2 01/14 23:34 Order name: Cardiac monitoring; Complete Time: 00:02 de2 01/14 23:34 Order name: EKG - Nurse/Tech; Complete Time: 23:37 ma2 01/14 23:34 Order name: IV Saline Lock; Complete Time: 00:02 de2 01/14 23:34 Order name: Labs collected and sent; Complete Time: 00:02 de2 01/14 23:34 Order name: O2 Per Protocol; Complete Time: 00:02 de2 01/14 23:34 Order name: O2 Sat Monitoring; Complete Time: 00:02 ma2 Administered Medications: 01/14 22:30 Drug: Ibuprofen 600 mg Route: PO; em 01/15 01:26 Follow up: Response: No adverse reaction ad5 00:01 Drug: NS 0.9% 1000 ml Route: IV; Rate: 1 bolus; Site: right antecubital; ea 01:24 Follow up: IV Status: Completed infusion; IV Intake: 1000ml ad5 00:01 Drug: AZITHromycin 500 mg Route: IVPB; Infused Over: 1 hrs; Site: right antecubital; ea 01:24 Follow up: Response: No adverse reaction; IV Status: Completed infusion ad5 00:02 Drug: Tylenol 1000 mg Route: PO; ea 01:25 Follow up: Response: No adverse reaction ad5 00:25 Drug: SOLU-Medrol (methylPrednisoLONE) 125 mg Route: IVP; Site: right antecubital; ea 01:11 Follow up: Response: No adverse reaction ea 01:11 Drug: Lovenox (enoxaparin) 80 mg Route: Sub-Q; Site: abdomen; ea 01:11 Follow up: Response: No adverse reaction ea Disposition Summary: 01/15/21 00:37 Hospitalization Ordered Hospitalization Status: Inpatient Admission ma2 Provider: Migel Dwyer Condition: Stable ma Problem: new ma2 Symptoms: are unchanged ma2 Bed/Room Type: Standard de2 Location: [facility] ER HOLD(01/15/21 00:44) tl1 Room Assignment: ERHOLD-(01/15/21 00:44) tl1 Diagnosis - Other viral pneumonia - with COVID 19 ma2 Forms: - Medication Reconciliation Form ma2 - SBAR form ma2 Signatures: Dispatcher [employer] EDMS Tremaine Pandey MD MD cha Munoz, Edgar RN RN em Oneil Bergman FNP-C [employer]-Cla1 Emilia Mejia RN RN tl1 Maricarmen Shaw RN RN ea Alzahri, Mohammad, MD MD ma2 Imelda Rinaldi RN RN Felipe Castro Corrections: (The following items were deleted from the chart) 01/14 22:55 22:23 CORONAVIRUS+MR.LAB.BRZ ordered. EDMS EDMS 01/15 00:06 01/14 23:35 Chest Single View+RAD.RAD.BRZ ordered. EDMN EDMN 01/15 00:44 00:37 Telemetry/MedSurg (Inpatient) de2 tl1 00:44 00:37 ma2 tl1
[2021-01-15] MEDS ORDERED: METHYLPREDNISOLONE 125 MG INJ ONE ×2 (00:38→12:34)
[2021-01-15 01:25] LABS: Blood Morphology Comment NOT SEEN (NOT SEEN); Platelet Estimate ADEQ
[2021-01-15] MEDS ORDERED: ENOXAPARIN 80 MG/0.8 ML SQ ONE (01:31)
--- NOTE | 2021-01-15 07:20 | RAD REPORT ---
EXAM DESCRIPTION: Morgan Pa And Lat (2 Views)01/14/2021 10:49 pm CLINICAL HISTORY: Cough COMPARISON: 1999 FINDINGS: Mild moderate bilateral patchy lung opacities. . The heart is normal size IMPRESSION: Mild to moderate patchy lung opacities probably pneumonia
[2021-01-15] MEDS: METHYLPREDNISOLONE 40 MG INJ IV SCH ×3 (09:00→21:00)
[2021-01-15] MEDS: ASPIRIN EC 81 MG TAB PO SCH (09:00)
[2021-01-15] MEDS: ASCORBIC ACID 500 MG TABLET PO SCH ×4 (09:00→21:00)
[2021-01-15] MEDS: ENOXAPARIN 40 MG/0.4 ML SQ SCH (09:00)
[2021-01-15] MEDS: THIAMINE HCL 100 MG TABLET PO SCH (09:00)
[2021-01-15] MEDS: VITAMIN D 1000 UNIT TAB PO SCH (09:00)
[2021-01-15] MEDS: ZINC SULFATE 220 MG CAP PO SCH (09:00)
[2021-01-15] MEDS ORDERED: THIAMINE HCL 100 MG TABLET ONE (12:34)
[2021-01-15] MEDS ORDERED: ZINC SULFATE 220 MG CAP ONE (12:34)
[2021-01-15] MEDS ORDERED: VITAMIN D 1000 UNIT TAB ONE (12:35)
[2021-01-15] MEDS ORDERED: ENOXAPARIN 40 MG/0.4 ML SQ ONE (12:35)
[2021-01-15] MEDS ORDERED: ASCORBIC ACID 500 MG TABLET ONE ×2 (12:35→21:15)
[2021-01-15] MEDS ORDERED: ASPIRIN EC 81 MG TAB PO ONE (12:35)
[2021-01-15] MEDS ORDERED: TOCILIZUMAB 800 MG in NA CHLORIDE 0.9% 60 ML IV ONE (16:00)
--- NOTE | 2021-01-15 16:58 | P.CNS ---
Date of Consult: 01/15/21 (Pt consented to TV) [facility] Provider: [facility] Chief Complaint: COVID-19 pneumonia History of Present Illness: Age 65 Aw COVID penumonia/ SOB and chest pain/ Hyposic/ Better Allergies No Known Allergies Allergy (Verified 01/15/21 02:45) Home Medications: RX: Clopidogrel Bisulfate [Plavix*] 75 mg PO DAILY #30 tablet 09/07/18 RX: Metoprolol Tartrate [Lopressor*] 50 mg PO DAILY 01/15/21 - Past Medical/Surgical History Diabetic: No -: Hypertension -: CAD with stent to the LAD -: GERD -: Obesity -: Heart catheterization, stent placed -: Left hand surgery Psychosocial/ Personal History: Patient is . He has 5 children. 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 - Social History Smoking Status: Never smoker Alcohol use: No CD- Drugs: No Caffeine use: Yes Place of Residence: Home Review of Systems General: Weakness Respiratory: Shortness of Breath Physical Examination Temp Pulse Resp BP Pulse Ox 98.9 F 68 16 120/77 96 01/15/21 12:00 01/15/21 16:00 01/15/21 16:00 01/15/21 16:00 01/15/21 16:00 General: Alert, In no apparent distress, Oriented x3 Laboratory Data (last 24 hrs) 01/14/21 23:57: PT 13.0 H, INR 1.13 01/14/21 23:57: WBC 5.20, Hgb 15.5, Hct 45.3, Plt Count 120 L 01/14/21 23:34: Sodium 136, Potassium 3.9, BUN 9, Creatinine 0.80, Glucose 116 H, Magnesium 2.0, Total Bilirubin 0.5, AST 46 H, ALT 35, Alkaline Phosphatase 65
--- NOTE | 2021-01-15 17:00 | P.PN ---
Subjective Date of Service: 01/15/21 Primary Care Provider: [facility] Chief Complaint: COVID-19 pneumonia No major changes from yesterday. Patient coughing intermittently. Cough is nonproductive. He is tolerating 2 L oxygen by nasal cannula. Physical Examination - Vital Signs Temperature: 98.9 F Blood Pressure: 120/77 Pulse: 68 Respirations: 16 Pulse Ox (%): 96 - Physical Exam General: Alert, In no apparent distress HEENT: Mucous membr. moist/pink Neck: Other (Oxygen by nasal cannula.) Respiratory: Other (Nonlabored breathing) Cardiovascular: Regular rate/rhythm, Normal S1 S2 Gastrointestinal: Soft and benign, Non-distended Musculoskeletal: No swelling Integumentary: No rashes Neurological: Normal strength at 5/5 x4 extr - Studies Laboratory Data (last 24 hrs) 01/14/21 23:57: PT 13.0 H, INR 1.13 01/14/21 23:57: WBC 5.20, Hgb 15.5, Hct 45.3, Plt Count 120 L 01/14/21 23:34: Sodium 136, Potassium 3.9, BUN 9, Creatinine 0.80, Glucose 116 H, Magnesium 2.0, Total Bilirubin 0.5, AST 46 H, ALT 35, Alkaline Phosphatase 65 Microbiology Data (last 24 hrs): 01/14/21 22:25 Nasopharnyx Influenza Type A Antigen Screen - Final 01/14/21 22:25 Nasopharnyx Influenza Type B Antigen Screen - Final Assessment And Plan - Current Problems (Diagnosis) (1) Pneumonia due to 2019 novel coronavirus Current Visit: Yes Status: Acute (2) Acute respiratory failure with hypoxia Current Visit: Yes Status: Acute (3) Coronary artery disease Current Visit: Yes Status: Acute - Plan Continue on COVID protocol with IV Solu-Medrol, bronchodilators, vitamin supplementation, and zinc supplementation. Patient started on Actemra. Monitor inflammatory markers. Aspirin for DVT prophylaxis. Monitor CBC and blood chemistry. Pulmonary-Dr. Buckley consulted to assist with management.
[2021-01-15] MEDS: ATORVASTATIN 40 MG TAB PO SCH (21:00)
[2021-01-15] MEDS: ACETAMINOPHEN 500 MG TAB PO PRN (21:08)
[2021-01-15] MEDS: BENZONATATE 100 MG CAP PO PRN (21:08)
[2021-01-15] MEDS: ONDANSETRON 4 MG/2 ML VIAL IV PRN (21:08)
[2021-01-15] MEDS ORDERED: ATORVASTATIN 20 MG TAB ONE (21:15)
[2021-01-15] MEDS ORDERED: BENZONATATE 100 MG CAP PO ONE (21:15)
[2021-01-15] MEDS ORDERED: ONDANSETRON 4 MG/2 ML VIAL ONE (21:15)
[2021-01-15] MEDS ORDERED: METHYLPREDNISOLONE 40 MG INJ ONE (21:16)
[2021-01-16 05:05] LABS: Absolute Lymphocytes (CBC) 0.6 K/uL (0.7-4.9); Basophils % 0.1 % (0-1.3); Hematocrit 45.8 % (39.6-49.0); MPV 9.4 fL (7.6-11.3); RBC Red Blood Cell Count 5.24 M/uL (4.33-5.43)
[2021-01-16 05:31] LABS: ALT/SGPT 32 U/L (12-78); AST/SGOT 44 U/L (15-37); Albumin 2.8 g/dL (3.4-5.0); Alkaline Phosphatase 57 U/L (45-117); BUN Blood Urea Nitrogen 15 mg/dL (7-18); Bicarbonate 26 mmol/L (21-32); Bilirubin Total 0.4 mg/dL (0.2-1.0); Glucose Level 150 mg/dL (74-106); HDL Cholesterol 47 mg/dL (40-60); LDL Cholesterol, Calculated 104 (<130); Magnesium 2.1 mg/dL (1.8-2.4); Potassium 3.9 mmol/L (3.5-5.1); Protein, Total 6.8 g/dL (6.4-8.2); Sodium Level 138 mmol/L (136-145); Thyroid Stimulating Hormone 0.461 uIU/mL (0.360-3.740)
[2021-01-16] MEDS ORDERED: POTASSIUM CL SA 10 MEQ TAB PO ONE ×2 (09:00→10:08)
[2021-01-16] MEDS: VITAMIN D 1000 UNIT TAB PO SCH (09:00)
[2021-01-16] MEDS: ASPIRIN EC 81 MG TAB PO SCH (09:22)
[2021-01-16] MEDS: METHYLPREDNISOLONE 40 MG INJ IV SCH ×3 (09:22→21:10)
[2021-01-16] MEDS: ZINC SULFATE 220 MG CAP PO SCH (09:22)
[2021-01-16] MEDS: ENOXAPARIN 40 MG/0.4 ML SQ SCH (09:23)
[2021-01-16] MEDS: ASCORBIC ACID 500 MG TABLET PO SCH ×4 (09:23→21:10)
[2021-01-16] MEDS: THIAMINE HCL 100 MG TABLET PO SCH (09:23)
[2021-01-16] MEDS ORDERED: ZINC SULFATE 220 MG CAP ONE (09:40)
[2021-01-16] MEDS ORDERED: ASCORBIC ACID 500 MG TABLET ONE ×4 (09:41→21:29)
[2021-01-16] MEDS ORDERED: ENOXAPARIN 40 MG/0.4 ML SQ ONE (09:41)
[2021-01-16] MEDS ORDERED: ASPIRIN EC 81 MG TAB PO ONE (09:41)
[2021-01-16] MEDS ORDERED: THIAMINE HCL 100 MG TABLET ONE (09:41)
[2021-01-16] MEDS ORDERED: METHYLPREDNISOLONE 40 MG INJ ONE ×3 (09:41→21:29)
[2021-01-16] MEDS ORDERED: VITAMIN D 1000 UNIT TAB ONE (10:10)
--- NOTE | 2021-01-16 19:51 | P.PN ---
Subjective Date of Service: 01/16/21 Primary Care Provider: Ted roberson Chief Complaint: COVID-19 pneumonia Patient states he feels better today. He is tolerating 2 L oxygen by nasal cannula. Physical Examination - Vital Signs Temperature: 98.0 F Blood Pressure: 138/86 Pulse: 84 Respirations: 29 Pulse Ox (%): 88 - Physical Exam General: Alert, In no apparent distress Neck: JVD not distended Respiratory: Other (Nonlabored breathing.) Cardiovascular: Regular rate/rhythm, Normal S1 S2 Gastrointestinal: Soft and benign, Non-distended Musculoskeletal: No swelling Integumentary: No rashes, No erythema Neurological: Normal strength at 5/5 x4 extr Assessment And Plan - Current Problems (Diagnosis) (1) Pneumonia due to 2019 novel coronavirus Current Visit: Yes Status: Acute (2) Acute respiratory failure with hypoxia Current Visit: Yes Status: Acute (3) Coronary artery disease Current Visit: Yes Status: Acute - Plan Continue on COVID protocol with IV Solu-Medrol, bronchodilators, vitamin supplementation, and zinc supplementation. Continue Actemra. Continue to monitor inflammatory markers. Aspirin for DVT prophylaxis. Monitor CBC and blood chemistry. Pulmonary-Dr. Buckley input appreciated.
[2021-01-16] MEDS: ATORVASTATIN 40 MG TAB PO SCH (21:10)
[2021-01-16] MEDS: APIXABAN 2.5 MG TABLET PO SCH (22:03)
--- NOTE | 2021-01-16 22:04 | P.PN ---
Subjective Date of Service: 01/16/21 Primary Care Provider: Ted roberson Chief Complaint: COVID-19 pneumonia Subjective: Worsening (O2 requirement worsening) Review of Systems General: Weakness Respiratory: Shortness of Breath Physical Examination - Vital Signs Temperature: 98.3 F Blood Pressure: 130/77 Pulse: 77 Respirations: 21 Pulse Ox (%): 93 - Physical Exam General: Alert, Moderate distress Assessment & Plan - Problems (Diagnosis) (1) Pneumonia due to 2019 novel coronavirus Current Visit: Yes Status: Acute Plan: O2 requirements worsening/ Add Barcitnib/ labs reviewed
[2021-01-16] MEDS ORDERED: APIXABAN 5 MG TABLET ONE (22:39)
[2021-01-16] MEDS: MELATONIN 5 MG TABLET PO PRN (23:10)
[2021-01-17] MEDS: ONDANSETRON 4 MG/2 ML VIAL IV PRN (02:43)
[2021-01-17] MEDS: BENZONATATE 100 MG CAP PO PRN (02:44)
[2021-01-17] MEDS ORDERED: BENZONATATE 100 MG CAP PO ONE (03:05)
[2021-01-17] MEDS ORDERED: ONDANSETRON 4 MG/2 ML VIAL ONE ×2 (03:05→14:07)
[2021-01-17 05:36] LABS: Absolute Lymphocytes (CBC) 0.5 K/uL (0.7-4.9); Basophils % 0.1 % (0-1.3); Hematocrit 45.8 % (39.6-49.0); Lymphocytes % 5.9 % (15.3-44.8); MPV 8.7 fL (7.6-11.3); RBC Red Blood Cell Count 5.27 M/uL (4.33-5.43)
[2021-01-17 05:58] LABS: Albumin 2.9 g/dL (3.4-5.0); Bilirubin Total 0.5 mg/dL (0.2-1.0); C-Reactive Protein 59.2 mg/L (<3.00); Ferritin 1226.9 ng/mL (26-388); Magnesium 2.3 mg/dL (1.8-2.4); Protein, Total 6.8 g/dL (6.4-8.2)
[2021-01-17] MEDS ORDERED: HYDROCORTISONE SUC 100 MG INJ ONE (08:20)
[2021-01-17] MEDS ORDERED: THIAMINE HCL 100 MG TABLET ONE (08:20)
[2021-01-17] MEDS ORDERED: ASPIRIN EC 81 MG TAB PO ONE (08:20)
[2021-01-17] MEDS ORDERED: ZINC SULFATE 220 MG CAP ONE (08:20)
[2021-01-17] MEDS ORDERED: APIXABAN 5 MG TABLET ONE (08:20)
[2021-01-17] MEDS ORDERED: ASCORBIC ACID 500 MG TABLET ONE ×3 (08:21→20:34)
[2021-01-17] MEDS ORDERED: VITAMIN D 1000 UNIT TAB ONE (08:21)
[2021-01-17] MEDS: VITAMIN D 1000 UNIT TAB PO SCH (09:00)
[2021-01-17] MEDS: ASCORBIC ACID 500 MG TABLET PO SCH ×4 (09:00→20:32)
[2021-01-17] MEDS: ZINC SULFATE 220 MG CAP PO SCH (09:00)
[2021-01-17] MEDS ORDERED: BARICITINIB 2 MG TABLET PO SCH (09:00)
[2021-01-17] MEDS: METHYLPREDNISOLONE 40 MG INJ IV SCH ×3 (09:00→20:32)
[2021-01-17] MEDS: ASPIRIN EC 81 MG TAB PO SCH (09:00)
[2021-01-17] MEDS: THIAMINE HCL 100 MG TABLET PO SCH (09:00)
[2021-01-17] MEDS: APIXABAN 2.5 MG TABLET PO SCH ×2 (09:00→20:32)
[2021-01-17] MEDS ORDERED: METHYLPREDNISOLONE 40 MG INJ ONE ×2 (10:03→13:50)
[2021-01-17] MEDS ORDERED: PROMETHAZINE-DM 5 ML OSYR PO PRN (10:40)
--- NOTE | 2021-01-17 11:27 | P.PN ---
Subjective Date of Service: 01/17/21 Primary Care Provider: Ted roberson Chief Complaint: COVID-19 pneumonia Subjective: Improving (Feeling better) Physical Examination - Vital Signs Temperature: 97.8 F Blood Pressure: 132/88 Pulse: 74 Respirations: 26 Pulse Ox (%): 95 - Physical Exam General: Alert, In no apparent distress, Oriented x3 Assessment & Plan - Problems (Diagnosis) (1) Pneumonia due to 2019 novel coronavirus Current Visit: Yes Status: Acute Plan: Improving/ titrate O2 down.labs reviwed/ Barcitinib ordered
--- NOTE | 2021-01-17 15:01 | P.PN ---
Subjective Date of Service: 01/17/21 Primary Care Provider: Ted roberson Chief Complaint: COVID-19 pneumonia Patient is now requiring high-flow oxygen. He denies shortness of breath. Physical Examination - Vital Signs Temperature: 98.9 F Blood Pressure: 120/77 Pulse: 77 Respirations: 26 Pulse Ox (%): 93 - Physical Exam General: Alert, In no apparent distress HEENT: Other (High-flow oxygen) Neck: JVD not distended Respiratory: Other (Nonlabored breathing.) Cardiovascular: Regular rate/rhythm, Normal S1 S2 Gastrointestinal: Soft and benign, Non-distended Musculoskeletal: No swelling Integumentary: No rashes Neurological: Normal strength at 5/5 x4 extr Assessment And Plan - Current Problems (Diagnosis) (1) Pneumonia due to 2019 novel coronavirus Current Visit: Yes Status: Acute (2) Acute respiratory failure with hypoxia Current Visit: Yes Status: Acute (3) Coronary artery disease Current Visit: Yes Status: Acute - Plan Continue on COVID protocol with IV Solu-Medrol, bronchodilators, vitamin supplementation, and zinc supplementation. Patient briefly treated with Actemra. He is now on high-flow oxygen. Actemra to be switched to Baracitinib. Continue to monitor inflammatory markers. Aspirin for DVT prophylaxis. Monitor CBC and blood chemistry. Pulmonary-Dr. Buckley is following. Wean HFNC as possible.
[2021-01-17] MEDS ORDERED: MORPHINE 2 MG/ML SYR IV ONE (16:44)
[2021-01-17] MEDS ORDERED: KETOROLAC 30 MG/ML INJ ONE (17:13)
[2021-01-17] MEDS ORDERED: MORPHINE 2 MG/ML SYR ONE (17:15)
[2021-01-17] MEDS: LORAZEPAM 1 MG TABLET PO PRN (20:32)
[2021-01-17] MEDS: ATORVASTATIN 40 MG TAB PO SCH (20:32)
[2021-01-17] MEDS ORDERED: ATORVASTATIN 20 MG TAB ONE (20:32)
[2021-01-17] MEDS ORDERED: METHYLPREDNISOLONE 125 MG INJ ONE (20:33)
[2021-01-17] MEDS ORDERED: LORAZEPAM 1 MG TABLET ONE (20:34)
[2021-01-18] MEDS: TRAZODONE 50 MG TABLET PO PRN ×2 (00:22→22:07)
[2021-01-18 07:32] LABS: Absolute Lymphocytes (CBC) 0.7 K/uL (0.7-4.9); Basophils % 0.2 % (0-1.3); Hematocrit 46.2 % (39.6-49.0); Lymphocytes % 6.7 % (15.3-44.8); MPV 8.5 fL (7.6-11.3); RBC Red Blood Cell Count 5.33 M/uL (4.33-5.43)
[2021-01-18 07:50] LABS: Bilirubin Total 0.5 mg/dL (0.2-1.0); C-Reactive Protein 32.6 mg/L (<3.00); Ferritin 1148.2 ng/mL (26-388); Magnesium 2.5 mg/dL (1.8-2.4); Potassium 3.8 mmol/L (3.5-5.1); Protein, Total 6.8 g/dL (6.4-8.2)
[2021-01-18] MEDS ORDERED: POTASSIUM CL SA 10 MEQ TAB PO ONE (09:00)
[2021-01-18] MEDS: ASPIRIN EC 81 MG TAB PO SCH (09:55)
[2021-01-18] MEDS: APIXABAN 2.5 MG TABLET PO SCH (09:55)
[2021-01-18] MEDS: LORAZEPAM 1 MG TABLET PO PRN (09:55)
[2021-01-18] MEDS: ZINC SULFATE 220 MG CAP PO SCH (09:55)
[2021-01-18] MEDS: VITAMIN D 1000 UNIT TAB PO SCH (09:55)
[2021-01-18] MEDS: METHYLPREDNISOLONE 40 MG INJ IV SCH ×3 (09:56→20:37)
[2021-01-18] MEDS: ASCORBIC ACID 500 MG TABLET PO SCH ×4 (09:56→22:08)
[2021-01-18] MEDS: THIAMINE HCL 100 MG TABLET PO SCH (09:56)
[2021-01-18] MEDS: BENZONATATE 100 MG CAP PO PRN ×2 (10:02→22:07)
--- NOTE | 2021-01-18 15:00 | P.PN ---
Subjective Date of Service: 01/18/21 Primary Care Provider: Ted roberson Chief Complaint: COVID-19 pneumonia No tdoing well/ high conc of Fio2/ S/p Asctemera/ Very hypoxic Review of Systems General: Weakness Respiratory: Shortness of Breath Physical Examination - Vital Signs Temperature: 98.6 F Blood Pressure: 127/76 Pulse: 67 Respirations: 40 Pulse Ox (%): 91 - Physical Exam General: Alert, Oriented x3, Cooperative Assessment & Plan - Problems (Diagnosis) (1) Pneumonia due to 2019 novel coronavirus Current Visit: Yes Status: Acute Plan: Still requiring high conc of Fio@/ SP Actemra/VS rev/ add ivermectin
--- NOTE | 2021-01-18 16:01 | P.PN ---
Subjective Date of Service: 01/18/21 Primary Care Provider: Ted roberson Chief Complaint: COVID-19 pneumonia Patient still requiring high-flow oxygen. FiO2 requirement is trending up. He denies shortness of breath. Physical Examination - Vital Signs Temperature: 98.6 F Blood Pressure: 127/76 Pulse: 67 Respirations: 40 Pulse Ox (%): 91 - Physical Exam General: In no apparent distress HEENT: Other (High-flow oxygen) Neck: JVD not distended Respiratory: Other (Nonlabored breathing) Cardiovascular: No edema, Regular rate/rhythm Gastrointestinal: Soft and benign, Non-distended Musculoskeletal: No swelling Integumentary: No rashes, No erythema Neurological: Other (No focal motor deficit) Assessment And Plan - Current Problems (Diagnosis) (1) Pneumonia due to 2019 novel coronavirus Current Visit: Yes Status: Acute (2) Acute respiratory failure with hypoxia Current Visit: Yes Status: Acute (3) Coronary artery disease Current Visit: Yes Status: Acute - Plan Continue IV Solu-Medrol, bronchodilators, vitamin supplementation, and zinc supplementation. Status post Actemra. He is now on high-flow oxygen. Continue to monitor inflammatory markers. Eliquis for DVT prophylaxis. Monitor CBC and blood chemistry. Pulmonary-Dr. Buckley is following. Wean HFNC as possible.
[2021-01-18] MEDS: IVERMECTIN 3 MG TABLET PO SCH (16:26)
[2021-01-18] MEDS: ONDANSETRON 4 MG/2 ML VIAL IV PRN (20:37)
[2021-01-18] MEDS: ATORVASTATIN 40 MG TAB PO SCH (22:07)
[2021-01-18] MEDS: APIXABAN 5 MG TABLET PO SCH (22:07)
[2021-01-19] MEDS: LORAZEPAM 1 MG TABLET PO PRN (02:59)
[2021-01-19 04:19] LABS: C-Reactive Protein 21.5 mg/L (<3.00); Ferritin 1024.5 ng/mL (26-388); Potassium 3.9 mmol/L (3.5-5.1)
[2021-01-19] MEDS ORDERED: LORazepam 2 MG/ML VIAL IV ONE ×2 (06:07→06:08)
[2021-01-19] MEDS ORDERED: POTASSIUM CL SA 10 MEQ TAB PO ONE (09:00)
[2021-01-19] MEDS: THIAMINE HCL 100 MG TABLET PO SCH (09:00)
[2021-01-19] MEDS: ASCORBIC ACID 500 MG TABLET PO SCH ×4 (09:00→20:36)
[2021-01-19] MEDS: VITAMIN D 1000 UNIT TAB PO SCH (09:00)
[2021-01-19] MEDS: ZINC SULFATE 220 MG CAP PO SCH (09:00)
[2021-01-19] MEDS: APIXABAN 5 MG TABLET PO SCH ×2 (09:00→20:35)
[2021-01-19] MEDS: ASPIRIN EC 81 MG TAB PO SCH (09:00)
[2021-01-19] MEDS: METHYLPREDNISOLONE 40 MG INJ IV SCH ×3 (09:20→20:36)
[2021-01-19] MEDS: LORazepam 2 MG/ML VIAL IV PRN ×2 (12:01→21:00)
--- NOTE | 2021-01-19 14:10 | RAD REPORT ---
EXAM DESCRIPTION: RAD - Chest Single View - 01/19/2021 1:59 pm CLINICAL HISTORY: SOB Chest pain. COMPARISON: Chest Pa And Lat (2 Views) dated 01/14/2021; Chest Pa And Lat (2 Views) dated 09/07/2018; Chest Single View dated 09/06/2018; Chest Single View dated 09/04/2018 FINDINGS: Portable technique limits examination quality. Extensive bilateral pulmonary opacities are again seen, appearing mildly worsened since the comparati ve study. The heart is mildly enlarged in size. No displaced fractures. IMPRESSION: Mild worsening is seen in lung aeration since comparative study.
--- NOTE | 2021-01-19 14:24 | P.PN ---
Subjective Date of Service: 01/19/21 Primary Care Provider: Ted roberson Chief Complaint: COVID-19 pneumonia Patient clinical condition is worsening. He is currently on 100% FiO2. He is dyspneic on high-flow oxygen. Physical Examination - Vital Signs Temperature: 98.5 F Blood Pressure: 109/65 Pulse: 72 Respirations: 25 Pulse Ox (%): 91 - Physical Exam General: Alert, Oriented x3 HEENT: Mucous membr. moist/pink Neck: JVD not distended Respiratory: Other (Nonlabored breathing) Cardiovascular: Regular rate/rhythm, Normal S1 S2 Gastrointestinal: Soft and benign, Non-distended Musculoskeletal: No swelling Integumentary: No rashes Neurological: Normal speech, Normal strength at 5/5 x4 extr Assessment And Plan - Current Problems (Diagnosis) (1) Pneumonia due to 2019 novel coronavirus Current Visit: Yes Status: Acute (2) Acute respiratory failure with hypoxia Current Visit: Yes Status: Acute (3) Coronary artery disease Current Visit: Yes Status: Acute - Plan Continue IV Solu-Medrol, bronchodilators, vitamin supplementation, and zinc supplementation. Status post Actemra. Patient transferred to the ICU, He is on 100% high-flow oxygen. Continue to monitor inflammatory markers. Eliquis for DVT prophylaxis. Monitor CBC and blood chemistry. Pulmonary-Dr. Buckley is following. Monitor electrolytes and CBC
[2021-01-19] MEDS: ATORVASTATIN 40 MG TAB PO SCH (20:35)
[2021-01-20 03:55] LABS: Absolute Lymphocytes (CBC) 0.4 K/uL (0.7-4.9); Basophils % 0.3 % (0-1.3); Lymphocytes % 3.2 % (15.3-44.8); MPV 8.5 fL (7.6-11.3); RBC Red Blood Cell Count 5.05 M/uL (4.33-5.43)
[2021-01-20 04:25] LABS: Albumin 2.9 g/dL (3.4-5.0); C-Reactive Protein 13.7 mg/L (<3.00); Ferritin 892.9 ng/mL (26-388); Phosphorus 4.2 mg/dL (2.5-4.9); Potassium 4.2 mmol/L (3.5-5.1)
[2021-01-20 04:42] LABS: Blood Morphology Comment NOTED (NOT SEEN); Platelet Estimate ADEQ; Polychromasia 2+
--- NOTE | 2021-01-20 07:25 | P.PN ---
Subjective Date of Service: 01/20/21 Primary Care Provider: [facility] Chief Complaint: COVID-19 pneumonia Physical Examination - Vital Signs Temperature: 98.5 F Blood Pressure: 120/59 Pulse: 51 Respirations: 33 Pulse Ox (%): 93
[2021-01-20] MEDS: ASCORBIC ACID 500 MG TABLET PO SCH ×4 (09:41→19:59)
[2021-01-20] MEDS: METHYLPREDNISOLONE 40 MG INJ IV SCH ×3 (09:41→19:59)
[2021-01-20] MEDS: THIAMINE HCL 100 MG TABLET PO SCH (09:42)
[2021-01-20] MEDS: ASPIRIN EC 81 MG TAB PO SCH (09:42)
[2021-01-20] MEDS: APIXABAN 5 MG TABLET PO SCH ×2 (09:42→19:59)
[2021-01-20] MEDS: ZINC SULFATE 220 MG CAP PO SCH (09:42)
[2021-01-20] MEDS: VITAMIN D 1000 UNIT TAB PO SCH (09:43)
--- NOTE | 2021-01-20 10:49 | P.PN ---
Subjective Date of Service: 01/20/21 Primary Care Provider: Ted roberson Chief Complaint: COVID-19 pneumonia Subjective: Improving (overnight tried to pull mask off, desaturates quickly. Patient reports lots of pressure/pain on his face from mask. Otherwise doing ok, breathing feels about the same, FiO2 slightly improved) Review of Systems 10-point ROS is otherwise unremarkable Physical Examination - Vital Signs Temperature: 98.5 F Blood Pressure: 120/59 Pulse: 51 Respirations: 33 Pulse Ox (%): 93 Assessment & Plan Physician Review Additional Text: Physical Exam General: Alert, NAD HEENT: sclera anicteric, normal conjunctiva, BIPAP mask in place Respiratory: slight tachypnea / shallow respirations, on BIPAP 80% FiO2 Cardiovascular: Regular rate/rhythm, no edema Gastrointestinal: Soft, nontender, nondistended Musculoskeletal: No joint swelling Integumentary: No rashes Assessment And Plan acute hypoxemic respiratory failure secondary to COVID-19 pneumonia CAD HTN Continue IV Solu-Medrol, bronchodilators, vitamin supplementation, and zinc supplementation. Status post Actemra. Pulmonology consulted / following Patient transferred to the ICU on 01/19 on 100% HFNC inflammatory markers improving, Fio2 improving Eliquis for DVT prophylaxis. monitor electrolytes eval PO intake to ensure adequate VTE: eliquis Code: full Dispo: anticipate dc home in >2 days Time Spent Managing Pts Care (In Minutes): 40
[2021-01-20] MEDS: IVERMECTIN 3 MG TABLET PO SCH (17:53)
[2021-01-20] MEDS: ATORVASTATIN 40 MG TAB PO SCH (19:59)
[2021-01-20] MEDS: TRAZODONE 50 MG TABLET PO PRN (21:45)
[2021-01-21] MEDS ORDERED: MORPHINE 2 MG/ML SYR IV ONE ×2 (04:19→09:14)
[2021-01-21 04:46] LABS: Absolute Lymphocytes (CBC) 0.3 K/uL (0.7-4.9); Basophils % 0.4 % (0-1.3); Hematocrit 45.9 % (39.6-49.0); Lymphocytes % 2.3 % (15.3-44.8); MPV 8.4 fL (7.6-11.3); RBC Red Blood Cell Count 5.26 M/uL (4.33-5.43)
[2021-01-21 05:02] LABS: C-Reactive Protein 10.1 mg/L (<3.00); Phosphorus 4.3 mg/dL (2.5-4.9); Potassium 4.1 mmol/L (3.5-5.1)
--- NOTE | 2021-01-21 06:44 | P.PN ---
Subjective Date of Service: 01/21/21 Primary Care Provider: Ted roberson Chief Complaint: COVID-19 pneumonia Subjective: Improving (feeling slightly better, on nonrebreather this morning, with some lower abd pain, mild nausea.) Review of Systems 10-point ROS is otherwise unremarkable Physical Examination - Vital Signs Temperature: 97.2 F Blood Pressure: 113/75 Pulse: 67 Respirations: 26 Pulse Ox (%): 89 Assessment & Plan Physician Review Additional Text: Physical Exam General: Alert, NAD, on nonrebreather HEENT: sclera anicteric, normal conjunctiva Respiratory: slight tachypnea, on nonrebreather Cardiovascular: Regular rate/rhythm, no edema Gastrointestinal: Soft, nontender, nondistended Musculoskeletal: No joint swelling Assessment And Plan acute hypoxemic respiratory failure secondary to COVID-19 pneumonia CAD HTN Continue IV Solu-Medrol, bronchodilators, vitamin supplementation, and zinc supplementation. Pulmonology consulted / following. s/p Actemra. Patient transferred to the ICU on 01/19 on 100% HFNC inflammatory markers steady, Fio2 remains the same this morning Eliquis for DVT prophylaxis. able to eat some food last night pt does not like BIPAP mask VTE: eliquis Code: full Dispo: anticipate dc home in >2 days Time Spent Managing Pts Care (In Minutes): 40
[2021-01-21] MEDS: ZINC SULFATE 220 MG CAP PO SCH (09:37)
[2021-01-21] MEDS: THIAMINE HCL 100 MG TABLET PO SCH (09:37)
[2021-01-21] MEDS: APIXABAN 5 MG TABLET PO SCH ×2 (09:37→20:16)
[2021-01-21] MEDS: VITAMIN D 1000 UNIT TAB PO SCH (09:37)
[2021-01-21] MEDS: ASCORBIC ACID 500 MG TABLET PO SCH ×4 (09:38→20:16)
[2021-01-21] MEDS: ASPIRIN EC 81 MG TAB PO SCH (09:38)
[2021-01-21] MEDS: METHYLPREDNISOLONE 40 MG INJ IV SCH (09:51)
[2021-01-21] MEDS: MORPHINE 2 MG/ML SYR IV PRN ×2 (13:32→20:18)
[2021-01-21] MEDS: METHYLPREDNISOLONE 125 MG INJ IV SCH ×2 (13:33→20:17)
[2021-01-21 17:31] LABS: Arterial Blood Carboxyhemoglob 1.1 % (0-1.5); Blood Gas Oxyhemoglobin 88.2 % (94-97); Blood O2 Saturation 90.1 % (92-98.5)
--- NOTE | 2021-01-21 19:17 | RAD REPORT ---
EXAM DESCRIPTION: RAD - Abdomen 1 View (KUB) - 01/21/2021 4:11 pm CLINICAL HISTORY: Dobhoff placement COMPARISON: No comparisons FINDINGS: Weighted feeding tube overlies the expected location of the gastric antrum. Bowel gas petrona jason is nonobstructive. IMPRESSION: Weighted feeding tube overlies the distal stomach. Nonobstructive bowel-gas pattern.
[2021-01-21] MEDS: ATORVASTATIN 40 MG TAB PO SCH (20:16)
[2021-01-21] MEDS: ONDANSETRON 4 MG/2 ML VIAL IV PRN (20:18)
--- NOTE | 2021-01-21 23:27 | P.PN ---
Date of Service: 01/21/21 Patient very hypoxic this evening with saturations in the 60s to 70s persistently, have attempted repositioning, further sedation, changes in vent settings without significant improvement. Discussed with significant other who is at bedside, at this time patient with very poor prognosis, significant other in agreement and wishes to change advanced directive/CODE STATUS to DO NOT RESUSCITATE. She is okay with continuing on with ventilation, vasopressor therapy and other measures at this time but if his heart stopped she would not want him to have CPR/defibrillation or other aggressive invasive measures. We will continue with current therapies, CODE STATUS changed to DNR.
[2021-01-22] MEDS: ONDANSETRON 4 MG/2 ML VIAL IV PRN ×2 (02:19→20:20)
[2021-01-22] MEDS: MORPHINE 2 MG/ML SYR IV PRN ×3 (02:20→17:03)
[2021-01-22 06:01] LABS: Absolute Lymphocytes (CBC) 0.3 K/uL (0.7-4.9); Basophils % 0.2 % (0-1.3); Hematocrit 48.3 % (39.6-49.0); Lymphocytes % 1.8 % (15.3-44.8); MPV 8.7 fL (7.6-11.3); RBC Red Blood Cell Count 5.54 M/uL (4.33-5.43)
[2021-01-22 06:16] LABS: C-Reactive Protein 5.5 mg/L (<3.00); Ferritin 791.2 ng/mL (26-388); Phosphorus 4.3 mg/dL (2.5-4.9); Potassium 4.3 mmol/L (3.5-5.1)
[2021-01-22 06:34] LABS: Albumin 2.9 g/dL (3.4-5.0); Bilirubin Total 0.9 mg/dL (0.2-1.0); Magnesium 2.9 mg/dL (1.8-2.4); Potassium 4.4 mmol/L (3.5-5.1); Protein, Total 6.1 g/dL (6.4-8.2)
[2021-01-22] MEDS ORDERED: GLUCAGON 1 MG/VIAL IM PRN (07:34)
[2021-01-22] MEDS ORDERED: D50W 25 GM/50 ML SYRINGE IV PRN (07:34)
--- NOTE | 2021-01-22 07:41 | P.PN ---
Subjective Date of Service: 01/22/21 Primary Care Provider: Ted roberson Chief Complaint: COVID-19 pneumonia Subjective: No new changes (on 100% FiO2, more calm, on BIPAP. feeling better today, voiding, +flatus) Review of Systems 10-point ROS is otherwise unremarkable Physical Examination - Vital Signs Temperature: 96.9 F Blood Pressure: 126/81 Pulse: 62 Respirations: 26 Pulse Ox (%): 92 Assessment & Plan Physician Review Additional Text: Physical Exam General: Alert, NAD, on BIPAP HEENT: sclera anicteric, normal conjunctiva Respiratory: slight tachypnea, on BIPAP, shallow respirations Cardiovascular: Regular rate/rhythm, no edema Gastrointestinal: Soft, nontender, nondistended Musculoskeletal: No joint swelling Assessment And Plan acute hypoxemic respiratory failure secondary to COVID-19 pneumonia CAD HTN Continue IV Solu-Medrol, bronchodilators, vitamin supplementation, and zinc supplementation. Pulmonology consulted / following. s/p Actemra. Patient transferred to the ICU on 01/19 on 100% HFNC inflammatory markers mild improvement, d-dimer increased Eliquis for DVT prophylaxis. dobhoff placed 01/21, hypoxic off bipap mask morphine seems to help with anxiety/respirations VTE: eliquis Code: full Dispo: anticipate hospitalization > 2days guarded prognosis Time Spent Managing Pts Care (In Minutes): 35
[2021-01-22] MEDS: THIAMINE HCL 100 MG TABLET PO SCH (09:00)
[2021-01-22] MEDS: APIXABAN 5 MG TABLET PO SCH ×2 (09:00→20:20)
[2021-01-22] MEDS: ZINC SULFATE 220 MG CAP PO SCH (09:00)
[2021-01-22] MEDS: VITAMIN D 1000 UNIT TAB PO SCH (09:00)
[2021-01-22] MEDS: ASPIRIN EC 81 MG TAB PO SCH (09:00)
[2021-01-22] MEDS: ASCORBIC ACID 500 MG TABLET PO SCH ×4 (09:00→20:20)
[2021-01-22] MEDS: METHYLPREDNISOLONE 125 MG INJ IV SCH ×3 (09:00→20:20)
--- NOTE | 2021-01-22 09:28 | RAD REPORT ---
EXAM DESCRIPTION: RAD - Chest Single View - 01/22/2021 5:42 am CLINICAL HISTORY: hypoxia, covid Chest pain. COMPARISON: Abdomen 1 View (KUB) dated 01/21/2021; Chest Single View dated 01/19/2021; Chest Pa And Lat (2 Views) dated 01/14/2021; Chest Pa And Lat (2 Views) dated 09/07/2018 FINDINGS: Portable technique limits examination quality. Extensive bilateral pulmonary opacities are again seen, appearing stable since prior study. The heart is mildly enlarged in size. Enteric tube tip is in the distal stomach.
[2021-01-22] MEDS: INSULIN -REGULAR HUMAN 50 UNIT/0.5 ML ML SQ SCH ×2 (12:00→16:17)
[2021-01-22 13:25] LABS: Blood Morphology Comment NOT SEEN (NOT SEEN); Platelet Estimate ADEQ; White Blood Cell Scan OK (OK)
[2021-01-22] MEDS: VITAL AF 1,000 ML BOT RTH SCH (14:53)
--- NOTE | 2021-01-22 16:33 | P.PN ---
Subjective Date of Service: 01/22/21 Primary Care Provider: Ted roberson Chief Complaint: COVID-19 pneumonia NC not doing well/ Hypoxic/ Dobhoff tube Review of Systems Respiratory: Shortness of Breath Physical Examination - Vital Signs Temperature: 96.9 F Blood Pressure: 132/81 Pulse: 67 Respirations: 27 Pulse Ox (%): 92 - Physical Exam General: Alert, Oriented x3, Cooperative, Moderate distress Assessment & Plan - Problems (Diagnosis) (1) Pneumonia due to 2019 novel coronavirus Current Visit: Yes Status: Acute Plan: Resp failure NC in [place]. Increase BIPAP settings
[2021-01-22] MEDS: ATORVASTATIN 40 MG TAB PO SCH (20:20)
[2021-01-22] MEDS: TRAZODONE 50 MG TABLET PO PRN (20:20)
[2021-01-23] MEDS: MORPHINE 2 MG/ML SYR IV PRN ×4 (00:07→23:01)
[2021-01-23] MEDS: ONDANSETRON 4 MG/2 ML VIAL IV PRN ×2 (03:40→05:48)
[2021-01-23] MEDS: INSULIN -REGULAR HUMAN 50 UNIT/0.5 ML ML SQ SCH ×4 (06:00→17:10)
[2021-01-23 06:54] LABS: Absolute Lymphocytes (CBC) 0.2 K/uL (0.7-4.9); Basophils % 0.2 % (0-1.3); Hematocrit 47.8 % (39.6-49.0); Lymphocytes % 1.1 % (15.3-44.8); MPV 8.5 fL (7.6-11.3); RBC Red Blood Cell Count 5.49 M/uL (4.33-5.43)
[2021-01-23 07:29] LABS: ALT/SGPT 40 U/L (12-78); AST/SGOT 21 U/L (15-37); Albumin 2.7 g/dL (3.4-5.0); Alkaline Phosphatase 62 U/L (45-117); BUN Blood Urea Nitrogen 36 mg/dL (7-18); Bicarbonate 28 mmol/L (21-32); Bilirubin Total 0.7 mg/dL (0.2-1.0); C-Reactive Protein 3.12 mg/L (<3.00); Ferritin 644.7 ng/mL (26-388); Glucose Level 135 mg/dL (74-106); Magnesium 2.9 mg/dL (1.8-2.4); Potassium 4.2 mmol/L (3.5-5.1); Protein, Total 5.6 g/dL (6.4-8.2); Sodium Level 144 mmol/L (136-145)
--- NOTE | 2021-01-23 08:09 | P.PN ---
Subjective Date of Service: 01/23/21 Primary Care Provider: Ted roberson Chief Complaint: COVID-19 pneumonia Subjective: No new changes (feels better, appetite improved. however tachypneic, on 100% fio2. Inflammatory markers improved) Review of Systems 10-point ROS is otherwise unremarkable Physical Examination - Vital Signs Temperature: 97.1 F Blood Pressure: 90/66 Pulse: 64 Respirations: 27 Pulse Ox (%): 91 Assessment & Plan Physician Review Additional Text: Physical Exam General: Alert, NAD, on BIPAP HEENT: sclera anicteric, normal conjunctiva Respiratory: slight tachypnea, on BIPAP Cardiovascular: Regular rate/rhythm, no edema Gastrointestinal: Soft, nontender, nondistended Musculoskeletal: No joint swelling Assessment And Plan acute hypoxemic respiratory failure secondary to COVID-19 pneumonia CAD HTN Continue IV Solu-Medrol, bronchodilators, vitamin supplementation, and zinc supplementation. decrease steroid dose 01/23 Pulmonology consulted / following. s/p Actemra. Patient transferred to the ICU on 01/19 on 100% HFNC inflammatory markers mild improvement Eliquis for DVT prophylaxis. dobhoff placed 01/21, hypoxic off bipap mask morphine seems to help with anxiety/respirations VTE: eliquis Code: full Dispo: anticipate hospitalization > 2days guarded prognosis Time Spent Managing Pts Care (In Minutes): 40
[2021-01-23] MEDS: THIAMINE HCL 100 MG TABLET PO SCH (09:02)
[2021-01-23] MEDS: ASPIRIN EC 81 MG TAB PO SCH (09:02)
[2021-01-23] MEDS: ZINC SULFATE 220 MG CAP PO SCH (09:02)
[2021-01-23] MEDS: METHYLPREDNISOLONE 125 MG INJ IV SCH ×3 (09:02→21:55)
[2021-01-23] MEDS: APIXABAN 5 MG TABLET PO SCH ×2 (09:02→21:56)
[2021-01-23] MEDS: VITAMIN D 1000 UNIT TAB PO SCH (09:02)
[2021-01-23] MEDS: ASCORBIC ACID 500 MG TABLET PO SCH ×4 (09:03→21:56)
[2021-01-23 09:57] LABS: Blood Morphology Comment NOT SEEN (NOT SEEN); Platelet Estimate ADEQ; White Blood Cell Scan OK (OK)
[2021-01-23] MEDS: VITAL AF 1,000 ML BOT RTH SCH (10:34)
[2021-01-23] MEDS ORDERED: DIPHENHYDRAMINE 25 MG TAB/CAP PO ONE (10:53)
[2021-01-23 11:18] LABS: Arterial Blood Carboxyhemoglob 0.8 % (0-1.5); Blood Gas Oxyhemoglobin 88.2 % (94-97); Blood O2 Saturation 89.8 % (92-98.5)
[2021-01-23] MEDS: ATORVASTATIN 40 MG TAB PO SCH (21:56)
[2021-01-24 05:15] LABS: Absolute Lymphocytes (CBC) 0.3 K/uL (0.7-4.9); Basophils % 0.3 % (0-1.3); Hematocrit 48.4 % (39.6-49.0); Lymphocytes % 1.3 % (15.3-44.8); RBC Red Blood Cell Count 5.51 M/uL (4.33-5.43)
[2021-01-24 05:39] LABS: BUN Blood Urea Nitrogen 36 mg/dL (7-18); Bicarbonate 28 mmol/L (21-32); Glucose Level 134 mg/dL (74-106); Magnesium 2.8 mg/dL (1.8-2.4); Potassium 4.8 mmol/L (3.5-5.1); Sodium Level 146 mmol/L (136-145)
--- NOTE | 2021-01-24 05:46 | P.PN ---
Subjective Date of Service: 01/24/21 Primary Care Provider: Ted roberson Chief Complaint: COVID-19 pneumonia Subjective: Improving (feeling better, able to talk more/longer without getting as short of breath, still on 100% FiO2 BIPAP. some nausea, last BM ~3 days ago, +Flatus) Physical Examination - Vital Signs Temperature: 98.5 F Blood Pressure: 106/62 Pulse: 53 Respirations: 20 Pulse Ox (%): 95 Assessment & Plan Physician Review Additional Text: Physical Exam General: AAOx3, NAD, on BIPAP HEENT: sclera anicteric, normal conjunctiva Respiratory: nonlabored on BIPAP Cardiovascular: Regular rate/rhythm, no edema Gastrointestinal: Soft, nontender, nondistended Musculoskeletal: No joint swelling Assessment And Plan acute hypoxemic respiratory failure secondary to COVID-19 pneumonia CAD HTN Constipation Continue IV Solu-Medrol, bronchodilators, vitamin supplementation, and zinc supplementation. Patient transferred to the ICU on 01/19 on 100% HFNC decreased steroid dose 01/23 Pulmonology consulted / following. s/p Actemra. quis for DVT prophylaxis. dobhoff placed 01/21, hypoxic off bipap mask morphine seems to help with anxiety/respirations patient continues to feel like he is breathing more comfortably, notably less dyspneic when speaking today VTE: eliquis Code: full Dispo: anticipate hospitalization > 2days guarded prognosis Time Spent Managing Pts Care (In Minutes): 35
[2021-01-24] MEDS: INSULIN -REGULAR HUMAN 50 UNIT/0.5 ML ML SQ SCH ×5 (06:00→23:50)
[2021-01-24] MEDS: ONDANSETRON 4 MG/2 ML VIAL IV PRN ×2 (06:42→13:37)
[2021-01-24] MEDS ORDERED: POLYETHYL GLY 3350 17 GM/DOSE PO ONE (06:44)
[2021-01-24] MEDS: ASPIRIN EC 81 MG TAB PO SCH (10:10)
[2021-01-24] MEDS: ZINC SULFATE 220 MG CAP PO SCH (10:10)
[2021-01-24] MEDS: THIAMINE HCL 100 MG TABLET PO SCH (10:10)
[2021-01-24] MEDS: ASCORBIC ACID 500 MG TABLET PO SCH ×4 (10:10→21:00)
[2021-01-24] MEDS: VITAMIN D 1000 UNIT TAB PO SCH (10:10)
[2021-01-24] MEDS: METHYLPREDNISOLONE 125 MG INJ IV SCH ×3 (10:11→19:55)
[2021-01-24] MEDS: APIXABAN 5 MG TABLET PO SCH ×2 (10:11→19:51)
[2021-01-24] MEDS ORDERED: METOCLOPRAMIDE 10 MG/2mL INJ ONE (14:54)
[2021-01-24] MEDS ORDERED: METOCLOPRAMIDE 10 MG/2mL INJ IV SCH (15:00)
[2021-01-24] MEDS ORDERED: DIPHENHYDRAMINE 50 MG/ML VIAL IV ONE (15:00)
[2021-01-24] MEDS ORDERED: BISACODYL 10 MG RECTAL SUPP PR ONE (15:01)
[2021-01-24] MEDS ORDERED: BISACODYL 10 MG RECTAL SUPP ONE (17:20)
[2021-01-24] MEDS: ATORVASTATIN 40 MG TAB PO SCH (19:51)
[2021-01-24] MEDS: MELATONIN 5 MG TABLET PO PRN (19:58)
[2021-01-25 05:14] LABS: Hematocrit 49.8 % (39.6-49.0); RBC Red Blood Cell Count 5.61 M/uL (4.33-5.43)
[2021-01-25] MEDS: INSULIN -REGULAR HUMAN 50 UNIT/0.5 ML ML SQ SCH ×4 (05:29→23:46)
[2021-01-25 05:40] LABS: ALT/SGPT 35 U/L (12-78); AST/SGOT 22 U/L (15-37); Albumin 2.8 g/dL (3.4-5.0); Alkaline Phosphatase 54 U/L (45-117); BUN Blood Urea Nitrogen 38 mg/dL (7-18); Bicarbonate 31 mmol/L (21-32); Bilirubin Total 0.9 mg/dL (0.2-1.0); C-Reactive Protein < 2.90 mg/L (<3.00); Glucose Level 129 mg/dL (74-106); Potassium 4.6 mmol/L (3.5-5.1); Protein, Total 5.6 g/dL (6.4-8.2); Sodium Level 144 mmol/L (136-145)
--- NOTE | 2021-01-25 07:04 | P.PN ---
Subjective Date of Service: 01/25/21 Primary Care Provider: Ted roberson Chief Complaint: COVID-19 pneumonia Subjective: No new changes (had BM yesterday, feels about the same as yesterday) Review of Systems 10-point ROS is otherwise unremarkable Physical Examination - Vital Signs Temperature: 96.4 F Blood Pressure: 123/71 Pulse: 55 Respirations: 19 Pulse Ox (%): 89 Assessment & Plan Physician Review Additional Text: Physical Exam General: AAOx3, NAD, on BIPAP HEENT: sclera anicteric, normal conjunctiva Respiratory: nonlabored on BIPAP Cardiovascular: Regular rate/rhythm, no edema Gastrointestinal: Soft, nontender, nondistended Musculoskeletal: No joint swelling Assessment And Plan acute hypoxemic respiratory failure secondary to COVID-19 pneumonia CAD HTN Constipation Patient transferred to the ICU on 01/19 on 100% HFNC Continue IV Solu-Medrol, bronchodilators, vitamin supplementation, and zinc supplementation. decreased steroid dose 01/23 Pulmonology consulted / following. s/p Actemra. Eliquis for DVT prophylaxis. dobhoff placed 01/21, hypoxic off bipap mask morphine seems to help with anxiety/respirations patient continues to feel like he is breathing more comfortably FiO2 improving VTE: eliquis Code: full Dispo: anticipate hospitalization > 2days guarded prognosis Time Spent Managing Pts Care (In Minutes): 35
[2021-01-25] MEDS: VITAMIN D 1000 UNIT TAB PO SCH (08:41)
[2021-01-25] MEDS: ASPIRIN EC 81 MG TAB PO SCH (08:41)
[2021-01-25] MEDS: ZINC SULFATE 220 MG CAP PO SCH (08:41)
[2021-01-25] MEDS: ASCORBIC ACID 500 MG TABLET PO SCH ×4 (08:42→20:25)
[2021-01-25] MEDS: THIAMINE HCL 100 MG TABLET PO SCH (08:42)
[2021-01-25] MEDS: METHYLPREDNISOLONE 125 MG INJ IV SCH ×3 (08:42→20:25)
[2021-01-25] MEDS: APIXABAN 5 MG TABLET PO SCH ×2 (08:42→20:25)
[2021-01-25] MEDS ORDERED: POLYETHYL GLY 3350 17 GM/DOSE PO ONE (09:00)
--- NOTE | 2021-01-25 10:42 | P.PN ---
Subjective Date of Service: 01/25/21 Primary Care Provider: Ted roberson Chief Complaint: COVID-19 pneumonia Not doing well/ hypoxic and agitated Review of Systems Respiratory: Shortness of Breath Physical Examination - Vital Signs Temperature: 97.7 F Blood Pressure: 107/72 Pulse: 59 Respirations: 19 Pulse Ox (%): 89 - Physical Exam General: Alert, Oriented x3, Cooperative, Moderate distress Assessment & Plan - Problems (Diagnosis) (1) Pneumonia due to 2019 novel coronavirus Current Visit: Yes Status: Acute Plan: Resp failure/ WBC elevated add Rocephin/ NC/ CXRY am
[2021-01-25] MEDS: MORPHINE 2 MG/ML SYR IV PRN ×2 (12:57→19:36)
--- NOTE | 2021-01-25 13:58 | RAD REPORT ---
EXAM DESCRIPTION: RAD - Abdomen 1 View (KUB) - 01/25/2021 1:44 pm CLINICAL HISTORY: abdominal distention, nausea COMPARISON: Abdomen 1 View (KUB) dated 01/21/2021 FINDINGS: Nonobstructive bowel gas pattern. No acute osseous abnormality.Widespread airspace disease identified in the lungs.No abnormal calcifications. Weighted feeding tube overlies the stomach. IMPRESSION: Weighted feeding tube overlies the stomach. Nonobstructive bowel-gas pattern.
[2021-01-25] MEDS: CEFTRIAXONE/SWI 1gm 1 GM/10 ML SYR IV SCH (16:14)
[2021-01-25] MEDS: ATORVASTATIN 40 MG TAB PO SCH (20:25)
[2021-01-26] MEDS: MORPHINE 2 MG/ML SYR IV PRN ×4 (01:51→21:05)
[2021-01-26] MEDS: INSULIN -REGULAR HUMAN 50 UNIT/0.5 ML ML SQ SCH ×4 (06:00→23:53)
--- NOTE | 2021-01-26 06:06 | P.PN ---
Subjective Date of Service: 01/26/21 Primary Care Provider: Ted roberson Chief Complaint: COVID-19 pneumonia Subjective: Improving (feeling better, no new complaints, O2 requirement improving) Review of Systems 10-point ROS is otherwise unremarkable Physical Examination - Vital Signs Temperature: 97.9 F Blood Pressure: 143/85 Pulse: 66 Respirations: 21 Pulse Ox (%): 89 Assessment & Plan Physician Review Additional Text: Physical Exam General: AAOx3, NAD HEENT: sclera anicteric, normal conjunctiva Respiratory: nonlabored on BIPAP Cardiovascular: Regular rate/rhythm, no edema Gastrointestinal: Soft, nontender, nondistended Musculoskeletal: No joint swelling Assessment And Plan acute hypoxemic respiratory failure secondary to COVID-19 pneumonia CAD HTN Constipation Patient transferred to the ICU on 01/19 on 100% HFNC Continue IV Solu-Medrol, bronchodilators, vitamin supplementation, and zinc supplementation. decreased steroid dose 01/23 Pulmonology consulted / following. s/p Actemra. Eliquis for DVT prophylaxis. dobhoff placed 01/21, hypoxic off bipap mask morphine seems to help with anxiety/respirations patient continues to feel like he is breathing more comfortably FiO2 improving Consult PT in the next 1- 2 days VTE: eliquis Code: full Dispo: anticipate hospitalization >2 days Time Spent Managing Pts Care (In Minutes): 35
[2021-01-26 06:17] LABS: Absolute Lymphocytes (CBC) 0.3 K/uL (0.7-4.9); Basophils % 0.4 % (0-1.3); Hematocrit 50.4 % (39.6-49.0); Lymphocytes % 1.8 % (15.3-44.8); MPV 9.1 fL (7.6-11.3); RBC Red Blood Cell Count 5.71 M/uL (4.33-5.43)
[2021-01-26 06:23] LABS: BUN Blood Urea Nitrogen 40 mg/dL (7-18); Bicarbonate 31 mmol/L (21-32); Ferritin 619.4 ng/mL (26-388); Glucose Level 135 mg/dL (74-106); Magnesium 3.1 mg/dL (1.8-2.4); Potassium 4.6 mmol/L (3.5-5.1); Sodium Level 144 mmol/L (136-145)
[2021-01-26 06:55] LABS: C-Reactive Protein < 2.90 mg/L (<3.00)
--- NOTE | 2021-01-26 08:11 | RAD REPORT ---
EXAM DESCRIPTION: Morgan Single View01/26/2021 7:11 am CLINICAL HISTORY: Shortness of breath COMPARISON: January 22, 2021 FINDINGS: Mild improvement in diffuse bilateral pulmonary opacities. Heart remains enlarged. Feeding tube within the distal stomach. Artifact overlies the chest. IMPRESSION: Mild improvement in the diffuse bilateral pulmonary opacities consistent with pneumonia
[2021-01-26] MEDS: THIAMINE HCL 100 MG TABLET PO SCH (09:04)
[2021-01-26] MEDS: METHYLPREDNISOLONE 125 MG INJ IV SCH ×3 (09:04→21:04)
[2021-01-26] MEDS: APIXABAN 5 MG TABLET PO SCH ×2 (09:04→21:04)
[2021-01-26] MEDS: ASPIRIN EC 81 MG TAB PO SCH (09:04)
[2021-01-26] MEDS: ZINC SULFATE 220 MG CAP PO SCH (09:04)
[2021-01-26] MEDS: ASCORBIC ACID 500 MG TABLET PO SCH ×4 (09:05→21:03)
[2021-01-26] MEDS: VITAMIN D 1000 UNIT TAB PO SCH (09:05)
[2021-01-26] MEDS: CEFTRIAXONE/SWI 1gm 1 GM/10 ML SYR IV SCH (09:53)
[2021-01-26] MEDS: BENZONATATE 100 MG CAP PO PRN (12:30)
--- NOTE | 2021-01-26 13:19 | P.PN ---
Subjective Date of Service: 01/26/21 Primary Care Provider: Ted roberson Chief Complaint: COVID-19 pneumonia Improving O2 requirements have decreased Review of Systems General: Weakness Respiratory: Shortness of Breath Physical Examination - Vital Signs Temperature: 97.9 F Blood Pressure: 126/89 Pulse: 76 Respirations: 21 Pulse Ox (%): 87 - Physical Exam General: Alert, Cooperative, Mild distress Assessment & Plan - Problems (Diagnosis) (1) Pneumonia due to 2019 novel coronavirus Current Visit: Yes Status: Acute Plan: Improving/ O2 requirements declining/ labs reviewed WBC declining
[2021-01-26] MEDS: ATORVASTATIN 40 MG TAB PO SCH (21:04)
[2021-01-27] MEDS: MORPHINE 2 MG/ML SYR IV PRN ×5 (00:48→21:33)
[2021-01-27 04:24] LABS: MPV 9.2 fL (7.6-11.3); RBC Red Blood Cell Count 6.23 M/uL (4.33-5.43)
[2021-01-27 04:39] LABS: Potassium 4.6 mmol/L (3.5-5.1)
[2021-01-27] MEDS: INSULIN -REGULAR HUMAN 50 UNIT/0.5 ML ML SQ SCH ×4 (06:08→23:24)
[2021-01-27] MEDS: VITAMIN D 1000 UNIT TAB PO SCH (09:02)
[2021-01-27] MEDS: ASPIRIN EC 81 MG TAB PO SCH (09:03)
[2021-01-27] MEDS: THIAMINE HCL 100 MG TABLET PO SCH (09:03)
[2021-01-27] MEDS: APIXABAN 5 MG TABLET PO SCH ×2 (09:03→20:07)
[2021-01-27] MEDS: ZINC SULFATE 220 MG CAP PO SCH (09:03)
[2021-01-27] MEDS: CEFTRIAXONE/SWI 1gm 1 GM/10 ML SYR IV SCH (09:03)
[2021-01-27] MEDS: METHYLPREDNISOLONE 125 MG INJ IV SCH ×3 (09:03→20:07)
[2021-01-27] MEDS: ASCORBIC ACID 500 MG TABLET PO SCH ×4 (09:04→20:07)
--- NOTE | 2021-01-27 11:06 | RAD REPORT ---
EXAM DESCRIPTION: RAD - Chest Single View - 01/27/2021 10:14 am CLINICAL HISTORY: pneumonia COMPARISON: Portable January 26 TECHNIQUE: AP portable chest image was obtained 01/27/2021 10:14 am . FINDINGS: Small 10% bilateral pneumothorax has developed. Pneumomediastinum is also identifiable wit h a small amount of subcutaneous emphysema at the left base of the neck and in the right axilla. Bilateral pulmonary opacities are present similar to the prior study. No progression or resolution id entifiable. Heart and vasculature are normal. No new or enlarging pleural effusion. Feeding tube is in place exte nding below the diaphragm with the tip in the proximal stomach. IMPRESSION: Stable bilateral lung parenchymal opacity since the prior day study. Interval development of small bilateral 10% pneumothorax. Interval development of pneumomediastinum and subcutaneous emphysema.
--- NOTE | 2021-01-27 11:08 | RAD REPORT ---
EXAM DESCRIPTION: RAD - Abdomen 1 View (KUB) - 01/27/2021 10:04 am CLINICAL HISTORY: doboff placement COMPARISON: January 25 FINDINGS: Feeding tube has been placed. Tip is in the proximal portion of a decompressed stomach. Po sitioning is similar to the January 25 examination. Bowel gas pattern is nonspecific. No obstruction or free air. No significant bony findings IMPRESSION: Feeding tube has been placed with the tip in the proximal portion of the decompressed st omach.
--- NOTE | 2021-01-27 14:17 | P.PN ---
Subjective Date of Service: 01/27/21 Primary Care Provider: Ted roberson Chief Complaint: COVID-19 pneumonia Patient is BiPAP dependent. Physical Examination - Vital Signs Temperature: 98.2 F Blood Pressure: 126/88 Pulse: 85 Respirations: 26 Pulse Ox (%): 94 - Physical Exam General: Alert, In no apparent distress HEENT: Other (BiPAP) Respiratory: Other (Nonlabored breathing) Cardiovascular: No edema, Regular rate/rhythm, Normal S1 S2 Gastrointestinal: Soft and benign, Non-distended Musculoskeletal: No swelling Integumentary: No rashes Neurological: Normal strength at 5/5 x4 extr Assessment And Plan - Current Problems (Diagnosis) (1) Pneumonia due to 2019 novel coronavirus Current Visit: Yes Status: Acute (2) Acute respiratory failure with hypoxia Current Visit: Yes Status: Acute (3) Coronary artery disease Current Visit: Yes Status: Acute - Plan Continue IV Solu-Medrol, bronchodilators, vitamin supplementation, and zinc supplementation. Status post Actemra. Patient transferred to the ICU, He is on 100% high-flow oxygen. Continue to monitor inflammatory markers. Eliquis for DVT prophylaxis. Monitor CBC and blood chemistry. Pulmonary-Dr. Buckley is following. Monitor electrolytes and CBC Physician Review Additional Text: Physical Exam General: AAOx3, NAD HEENT: sclera anicteric, normal conjunctiva Respiratory: nonlabored on BIPAP Cardiovascular: Regular rate/rhythm, no edema Gastrointestinal: Soft, nontender, nondistended Musculoskeletal: No joint swelling Assessment And Plan acute hypoxemic respiratory failure secondary to COVID-19 pneumonia CAD HTN Constipation Patient transferred to the ICU on 01/19 on 100% HFNC. Now on BiPAP dependent Continue IV Solu-Medrol, bronchodilators, vitamin supplementation, and zinc gibson pplementation. Pulmonology following. s/p Actemra. Eliquis for DVT prophylaxis. dobhoff placed 01/21, hypoxic off bipap mask morphine seems to help with anxiety/respirations VTE: eliquis Code: full
--- NOTE | 2021-01-27 15:37 | RAD REPORT ---
EXAM DESCRIPTION: RAD - Chest Single View - 01/27/2021 3:13 pm CLINICAL HISTORY: f/u previous findings/10% bilat pneumothorax, pneu Chest pain. COMPARISON: Abdomen 1 View (KUB) dated 01/27/2021; Chest Single View dated 01/27/2021; Chest Single Vi ew dated 01/26/2021; Abdomen 1 View (KUB) dated 01/25/2021 FINDINGS: Portable technique limits examination quality. Extensive bilateral pulmonary opacities show perhaps mild improvement since the comparative study. Pn eumomediastinum appears mildly larger in size relative to comparative study. Pneumothorax is somewhat difficult to visualize long portable chest radiograph but does not definitively appear larger.The he art is moderately enlarged. Enteric tube is in the stomach. IMPRESSION: Mild increase in the amount of pneumomediastinum since prior study. The previously noted pneumothorax findings are somewhat difficult to visualize due to the portable nature of presented im age. CT chest could be useful for further characterization.
--- NOTE | 2021-01-27 16:44 | P.PN ---
Subjective Date of Service: 01/27/21 Primary Care Provider: Ted roberson Chief Complaint: COVID-19 pneumonia Condition worse deveolped pneumomediastim-num. More SOB Review of Systems Respiratory: Shortness of Breath Physical Examination - Vital Signs Temperature: 96.9 F Blood Pressure: 135/92 Pulse: 106 Respirations: 32 Pulse Ox (%): 95 Assessment & Plan - Problems (Diagnosis) (1) Pneumonia due to 2019 novel coronavirus Current Visit: Yes Status: Acute Plan: Respfailure/ Developed Penumpmediastinum/WBC elevatedO2 requirements have increased/ CW monitor for progression of penumothorax
[2021-01-27] MEDS: ACETAMINOPHEN 500 MG TAB PO PRN (16:52)
[2021-01-27] MEDS: ATORVASTATIN 40 MG TAB PO SCH (20:07)
[2021-01-28] MEDS: MORPHINE 2 MG/ML SYR IV PRN ×6 (01:03→23:33)
[2021-01-28 03:31] LABS: Absolute Lymphocytes (CBC) 0.4 K/uL (0.7-4.9); Basophils % 0.2 % (0-1.3); Hematocrit 53.7 % (39.6-49.0); MPV 9.1 fL (7.6-11.3); RBC Red Blood Cell Count 6.02 M/uL (4.33-5.43)
[2021-01-28 03:37] LABS: Bilirubin Total 1.1 mg/dL (0.2-1.0); Potassium 4.5 mmol/L (3.5-5.1)
[2021-01-28 04:39] LABS: Blood Morphology Comment NOT SEEN (NOT SEEN); Platelet Estimate ADEQ
[2021-01-28] MEDS: INSULIN -REGULAR HUMAN 50 UNIT/0.5 ML ML SQ SCH ×4 (06:00→23:33)
[2021-01-28] MEDS: CEFTRIAXONE/SWI 1gm 1 GM/10 ML SYR IV SCH (07:34)
[2021-01-28] MEDS: METHYLPREDNISOLONE 125 MG INJ IV SCH (07:34)
[2021-01-28] MEDS: THIAMINE HCL 100 MG TABLET PO SCH (07:34)
[2021-01-28] MEDS: VITAMIN D 1000 UNIT TAB PO SCH (07:34)
[2021-01-28] MEDS: ASCORBIC ACID 500 MG TABLET PO SCH ×4 (07:34→20:21)
[2021-01-28] MEDS: ASPIRIN EC 81 MG TAB PO SCH (07:35)
[2021-01-28] MEDS: APIXABAN 5 MG TABLET PO SCH ×2 (07:35→20:21)
[2021-01-28] MEDS: ZINC SULFATE 220 MG CAP PO SCH (07:35)
--- NOTE | 2021-01-28 10:06 | P.PN ---
Subjective Date of Service: 01/28/21 Primary Care Provider: Ted roberson Chief Complaint: COVID-19 pneumonia Improving CXRY has cleared pneumomediastinum/ bad Anxiety Review of Systems Respiratory: Shortness of Breath Physical Examination - Vital Signs Temperature: 97.3 F Blood Pressure: 130/76 Pulse: 80 Respirations: 23 Pulse Ox (%): 96 - Physical Exam General: Alert, Moderate distress Assessment & Plan - Problems (Diagnosis) (1) Pneumonia due to 2019 novel coronavirus Current Visit: Yes Status: Acute Plan: c/o anxiety/ CXRY has cleared [place] pneumomedistinum/sig anxiety/ wean / inc Dobhoff fluis Sodium elevated/ WBC elevated/ Afeb
--- NOTE | 2021-01-28 10:33 | RAD REPORT ---
EXAM DESCRIPTION: RAD - Chest Single View - 01/28/2021 9:50 am CLINICAL HISTORY: eval pneumo COMPARISON: Chest Single View dated 01/27/2021; Abdomen 1 View (KUB) dated 01/27/2021; Chest Single Vi ew dated 01/27/2021; Chest Single View dated 01/26/2021 FINDINGS: Mild decreased pneumomediastinum compared with 01/27/2021. Re- demonstrated mild bilateral airspace opacities. No pneumothorax identified. Weighted feeding tube overlying the stomach. No frac tures are seen peer IMPRESSION: Mild decreased pneumomediastinum. No appreciable pneumothorax identified. Aeration of th e lungs is similar to prior.
--- NOTE | 2021-01-28 13:10 | P.PN ---
Subjective Date of Service: 01/28/21 Primary Care Provider: Ted roberson Chief Complaint: COVID-19 pneumonia Patient is BiPAP dependent. FiO2 is being weaned down. Hopefully will transition him to high-flow oxygen soon. Physical Examination - Vital Signs Temperature: 96.9 F Blood Pressure: 112/85 Pulse: 85 Respirations: 23 Pulse Ox (%): 91 - Physical Exam General: Alert, In no apparent distress HEENT: Other (BiPAP) Respiratory: Other (Nonlabored breathing) Cardiovascular: Regular rate/rhythm, Normal S1 S2 Gastrointestinal: Soft and benign, Non-distended Musculoskeletal: No swelling Integumentary: No rashes Neurological: Normal strength at 5/5 x4 extr Assessment And Plan - Current Problems (Diagnosis) (1) Pneumonia due to 2019 novel coronavirus Current Visit: Yes Status: Acute (2) Acute respiratory failure with hypoxia Current Visit: Yes Status: Acute (3) Coronary artery disease Current Visit: Yes Status: Acute - Plan Continue IV Solu-Medrol, bronchodilators, vitamin supplementation, and zinc supplementation. Status post Actemra. Patient transferred to the ICU, He is on 100% high-flow oxygen. Continue to monitor inflammatory markers. Eliquis for DVT prophylaxis. Monitor CBC and blood chemistry. Pulmonary-Dr. Buckley is following. Monitor electrolytes and CBC Physician Review Additional Text: Assessment And Plan acute hypoxemic respiratory failure secondary to COVID-19 pneumonia CAD HTN Constipation BiPAP dependent. FiO2 trending down. Hopefully will wean to high-flow oxygen soon. Continue IV Solu-Medrol, bronchodilators, vitamin supplementation, and zinc supplementation. Pulmonology following. s/p Actemra. Eliquis for DVT prophylaxis. dobhoff placed 8/4 for feeding while on BiPAP. Morphine IV p.r.n. for anxiety and shortness of breath. VTE: eliquis Code: full
[2021-01-28] MEDS: METHYLPREDNISOLONE 40 MG INJ IV SCH ×2 (13:53→20:21)
[2021-01-28] MEDS: ACETAMINOPHEN 500 MG TAB PO PRN (20:20)
[2021-01-28] MEDS: ATORVASTATIN 40 MG TAB PO SCH (20:21)
[2021-01-28] MEDS: MELATONIN 5 MG TABLET PO PRN (20:21)
--- NOTE | 2021-01-28 21:47 | RAD REPORT ---
EXAM DESCRIPTION: RAD - Abdomen 1 View (KUB) - 01/28/2021 9:35 pm CLINICAL HISTORY: Abdomen pain. FINDINGS: The bowel gas pattern is unremarkable. An enteric tube has its tip in the gastric body.
[2021-01-29 04:41] LABS: ALT/SGPT 77 U/L (12-78); AST/SGOT 38 U/L (15-37); Albumin 3.2 g/dL (3.4-5.0); Alkaline Phosphatase 59 U/L (45-117); Bilirubin Direct 0.4 mg/dL (0-0.2); Bilirubin Total 1.5 mg/dL (0.2-1.0); Ferritin 958.4 ng/mL (26-388); Protein, Total 6.1 g/dL (6.4-8.2)
[2021-01-29 04:45] LABS: C-Reactive Protein < 2.90 mg/L (<3.00)
[2021-01-29] MEDS: INSULIN -REGULAR HUMAN 50 UNIT/0.5 ML ML SQ SCH ×3 (06:00→18:00)
--- NOTE | 2021-01-29 07:07 | RAD REPORT ---
EXAM DESCRIPTION: RAD - Chest Single View - 01/29/2021 6:14 am CLINICAL HISTORY: eval pneumo COMPARISON: Abdomen 1 View (KUB) dated 01/28/2021; Chest Single View dated 01/28/2021; Chest Single Vi ew dated 01/27/2021; Abdomen 1 View (KUB) dated 01/27/2021; Chest Single View dated 01/27/2021; Chest Si ngle View dated 01/26/2021; Abdomen 1 View (KUB) dated 01/25/2021 FINDINGS: Question biapical pleural parenchymal lines but the lung markings seeming extend to the pe riphery. Pneumomediastinum is again noted. Weighted feeding tube overlying the stomach. Patchy bilate ral airspace disease again noted. This is unchanged. IMPRESSION: Similar aeration of the lungs with ill-defined bilateral airspace disease. Pneumomediast inum is grossly similar. Difficult to exclude tiny bilateral pneumothoraces versus skin folds.
[2021-01-29] MEDS: THIAMINE HCL 100 MG TABLET PO SCH (08:00)
[2021-01-29] MEDS: ZINC SULFATE 220 MG CAP PO SCH (08:00)
[2021-01-29] MEDS: METHYLPREDNISOLONE 40 MG INJ IV SCH ×3 (08:00→20:07)
[2021-01-29] MEDS: ASPIRIN EC 81 MG TAB PO SCH (08:00)
[2021-01-29] MEDS: APIXABAN 5 MG TABLET PO SCH ×2 (08:00→20:07)
[2021-01-29] MEDS: VITAMIN D 1000 UNIT TAB PO SCH (08:00)
[2021-01-29] MEDS: CEFTRIAXONE/SWI 1gm 1 GM/10 ML SYR IV SCH (08:01)
[2021-01-29] MEDS: ASCORBIC ACID 500 MG TABLET PO SCH ×4 (08:01→20:07)
[2021-01-29] MEDS: MORPHINE 2 MG/ML SYR IV PRN ×3 (08:01→17:15)
[2021-01-29 08:03] LABS: Hematocrit 53.4 % (39.6-49.0); MPV 8.9 fL (7.6-11.3); RBC Red Blood Cell Count 5.98 M/uL (4.33-5.43)
[2021-01-29 08:17] LABS: BUN Blood Urea Nitrogen 52 mg/dL (7-18); Bicarbonate 26 mmol/L (21-32); Glucose Level 157 mg/dL (74-106); Phosphorus 4.2 mg/dL (2.5-4.9); Potassium 4.4 mmol/L (3.5-5.1); Sodium Level 144 mmol/L (136-145)
[2021-01-29 09:43] LABS: Blood Morphology Comment NOT SEEN (NOT SEEN); Platelet Estimate ADEQ; White Blood Cell Scan OK (OK)
[2021-01-29] MEDS: ALPRAZOLAM 0.5 MG TABLET PO PRN ×2 (12:15→20:07)
--- NOTE | 2021-01-29 13:51 | P.PN ---
Subjective Date of Service: 01/29/21 Primary Care Provider: Ted roberson Chief Complaint: COVID-19 pneumonia Patient is BiPAP dependent. FiO2 is being weaned down. Hopefully will transition him to high-flow oxygen soon. Physical Examination - Vital Signs Temperature: 96.9 F Blood Pressure: 116/65 Pulse: 86 Respirations: 22 Pulse Ox (%): 94 - Physical Exam General: Alert, In no apparent distress, Other HEENT: Other (BiPAP) Neck: JVD not distended Respiratory: Other (Nonlabored breathing) Cardiovascular: Regular rate/rhythm, Normal S1 S2 Gastrointestinal: Soft and benign, Non-distended Musculoskeletal: No swelling Integumentary: No rashes Neurological: Normal strength at 5/5 x4 extr Assessment And Plan - Current Problems (Diagnosis) (1) Pneumonia due to 2019 novel coronavirus Current Visit: Yes Status: Acute (2) Acute respiratory failure with hypoxia Current Visit: Yes Status: Acute (3) Coronary artery disease Current Visit: Yes Status: Acute Physician Review Additional Text: Assessment And Plan acute hypoxemic respiratory failure secondary to COVID-19 pneumonia CAD HTN Constipation BiPAP dependent. FiO2 trending down. Weaned to high-flow as tolerated Continue IV Solu-Medrol, bronchodilators, vitamin supplementation, and zinc supplementation. Pulmonology following. s/p Actemra. Eliquis for DVT prophylaxis. dobhoff placed 8/4 for feeding while on BiPAP. Morphine IV p.r.n. for anxiety and shortness of breath. VTE: eliquis Code: full
[2021-01-29] MEDS: ATORVASTATIN 40 MG TAB PO SCH (20:07)
[2021-01-30 05:02] LABS: Absolute Lymphocytes (CBC) 0.6 K/uL (0.7-4.9); Basophils % 0.2 % (0-1.3); Hematocrit 51.5 % (39.6-49.0); MPV 9.5 fL (7.6-11.3); RBC Red Blood Cell Count 5.76 M/uL (4.33-5.43)
[2021-01-30 05:14] LABS: ALT/SGPT 87 U/L (12-78); AST/SGOT 40 U/L (15-37); Alkaline Phosphatase 55 U/L (45-117); BUN Blood Urea Nitrogen 47 mg/dL (7-18); Bicarbonate 31 mmol/L (21-32); Bilirubin Direct 0.4 mg/dL (0-0.2); Bilirubin Total 1.5 mg/dL (0.2-1.0); Ferritin 1099.6 ng/mL (26-388); Glucose Level 125 mg/dL (74-106); Magnesium 2.9 mg/dL (1.8-2.4); Potassium 4.6 mmol/L (3.5-5.1); Protein, Total 5.6 g/dL (6.4-8.2); Sodium Level 143 mmol/L (136-145)
[2021-01-30 05:51] LABS: C-Reactive Protein < 2.90 mg/L (<3.00)
[2021-01-30] MEDS: INSULIN -REGULAR HUMAN 50 UNIT/0.5 ML ML SQ SCH ×4 (06:00→17:12)
[2021-01-30] MEDS: VITAMIN D 1000 UNIT TAB PO SCH (08:28)
[2021-01-30] MEDS: THIAMINE HCL 100 MG TABLET PO SCH (08:29)
[2021-01-30] MEDS: ASPIRIN EC 81 MG TAB PO SCH (08:29)
[2021-01-30] MEDS: ASCORBIC ACID 500 MG TABLET PO SCH ×4 (08:29→20:10)
[2021-01-30] MEDS: ZINC SULFATE 220 MG CAP PO SCH (08:29)
[2021-01-30] MEDS: APIXABAN 5 MG TABLET PO SCH ×2 (08:29→20:10)
[2021-01-30] MEDS: METHYLPREDNISOLONE 40 MG INJ IV SCH ×3 (08:30→20:11)
[2021-01-30] MEDS: CEFTRIAXONE/SWI 1gm 1 GM/10 ML SYR IV SCH (08:31)
[2021-01-30] MEDS ORDERED: LACTULOSE 20 GM/30 ML UCUP FT SCH (09:00)
--- NOTE | 2021-01-30 09:13 | RAD REPORT ---
EXAM DESCRIPTION: RAD - Chest Single View - 01/30/2021 5:40 am CLINICAL HISTORY: eval pneumo Chest pain. COMPARISON: Chest Single View dated 01/29/2021; Abdomen 1 View (KUB) dated 01/28/2021; Chest Single Vi ew dated 01/28/2021; Chest Single View dated 01/27/2021 FINDINGS: Portable technique limits examination quality. Pneumomediastinum and small bilateral apical pneumothoraces are again seen the right sided pneumothor ax appears more visible on today's study relative to yesterday's. Overall, however they remain small in size. Pulmonary opacities bilaterally appear similar/stable. The heart is upper limit normal in si ze.
--- NOTE | 2021-01-30 10:54 | P.PN ---
Subjective Date of Service: 01/30/21 Primary Care Provider: Ted roberson Chief Complaint: COVID-19 pneumonia Patient is BiPAP dependent. No issues overnight. Physical Examination - Vital Signs Temperature: 98.7 F Blood Pressure: 110/77 Pulse: 75 Respirations: 20 Pulse Ox (%): 92 - Physical Exam General: Alert, In no apparent distress HEENT: Other (BiPAP) Respiratory: Other (Nonlabored breathing.) Cardiovascular: Regular rate/rhythm, Normal S1 S2 Gastrointestinal: Soft and benign, Non-distended Musculoskeletal: No swelling Integumentary: No rashes Neurological: Normal strength at 5/5 x4 extr Assessment And Plan - Current Problems (Diagnosis) (1) Pneumonia due to 2019 novel coronavirus Current Visit: Yes Status: Acute (2) Acute respiratory failure with hypoxia Current Visit: Yes Status: Acute (3) Coronary artery disease Current Visit: Yes Status: Acute Physician Review Additional Text: Assessment And Plan acute hypoxemic respiratory failure secondary to COVID-19 pneumonia CAD HTN Constipation BiPAP dependent. FiO2 trending down. Weaned to high-flow as tolerated Continue IV Solu-Medrol, bronchodilators, vitamin supplementation, and zinc supplementation. Pulmonology following. s/p Actemra. Eliquis for DVT prophylaxis. dobhoff placed 8/4 for feeding while on BiPAP. Morphine IV p.r.n. for anxiety and shortness of breath. VTE: eliquis Code: full
[2021-01-30] MEDS: ALPRAZOLAM 0.5 MG TABLET PO PRN (14:00)
[2021-01-30] MEDS ORDERED: LACTULOSE 20 GM/30 ML UCUP PO PRN (18:33)
--- NOTE | 2021-01-30 18:34 | P.PN ---
Subjective Date of Service: 01/30/21 Primary Care Provider: Ted roberson Chief Complaint: COVID-19 pneumonia Nc anxiety High concentration of Fio2 Review of Systems General: Weakness Respiratory: Shortness of Breath Physical Examination - Vital Signs Temperature: 97.6 F Blood Pressure: 112/64 Pulse: 78 Respirations: 24 Pulse Ox (%): 95 - Physical Exam General: Alert, Moderate distress Assessment & Plan - Problems (Diagnosis) (1) Pneumonia due to 2019 novel coronavirus Current Visit: Yes Status: Acute Plan: NC VEry hypocis/CXRY no change/LAbs reviewed/Add Low dose Diflucan High risk for fungal superinfection/ add lactulose
[2021-01-30] MEDS: MELATONIN 5 MG TABLET PO PRN (20:10)
[2021-01-30] MEDS: ATORVASTATIN 40 MG TAB PO SCH (20:10)
[2021-01-31] MEDS: INSULIN -REGULAR HUMAN 50 UNIT/0.5 ML ML SQ SCH ×5 (05:19→20:19)
[2021-01-31 05:59] LABS: ALT/SGPT 75 U/L (12-78); AST/SGOT 35 U/L (15-37); Albumin 2.9 g/dL (3.4-5.0); Alkaline Phosphatase 52 U/L (45-117); Bilirubin Direct 0.3 mg/dL (0-0.2); Protein, Total 5.3 g/dL (6.4-8.2)
[2021-01-31 06:03] LABS: C-Reactive Protein < 2.90 mg/L (<3.00)
[2021-01-31 06:28] LABS: Phosphorus 4.9 mg/dL (2.5-4.9)
[2021-01-31] MEDS: ZINC SULFATE 220 MG CAP PO SCH (08:56)
[2021-01-31] MEDS: CEFTRIAXONE/SWI 1gm 1 GM/10 ML SYR IV SCH (08:56)
[2021-01-31] MEDS: VITAMIN D 1000 UNIT TAB PO SCH (08:56)
[2021-01-31] MEDS: METHYLPREDNISOLONE 40 MG INJ IV SCH ×3 (08:56→21:02)
[2021-01-31] MEDS: APIXABAN 5 MG TABLET PO SCH ×2 (08:57→21:01)
[2021-01-31] MEDS: THIAMINE HCL 100 MG TABLET PO SCH (08:57)
[2021-01-31] MEDS: ASPIRIN EC 81 MG TAB PO SCH (08:57)
[2021-01-31] MEDS: ASCORBIC ACID 500 MG TABLET PO SCH ×4 (08:57→21:02)
[2021-01-31] MEDS: ALPRAZOLAM 0.5 MG TABLET PO PRN (08:57)
[2021-01-31] MEDS: FLUCONAZOLE 100 MG TAB PO SCH (08:57)
--- NOTE | 2021-01-31 08:57 | RAD REPORT ---
EXAM DESCRIPTION: RAD - Chest Single View - 01/31/2021 6:05 am CLINICAL HISTORY: eval pneumo, chest pain COMPARISON: January 30 TECHNIQUE: AP portable chest image was obtained 01/31/2021 6:05 am . FINDINGS: Bilateral lung parenchymal opacification is still present. Left base may be fractionally i mproved with differential minimal. Trachea is midline. Heart and vasculature are normal. Pneumomediastinum and subcutaneous emphysema quiroz ve not changed. Minimal left apical pneumothorax remains. Right apical pneumothorax is less visible o n the current examination. IMPRESSION: Slight improvement in the already small right-sided pneumothorax. Small apical left-side d pneumothorax has not changed. Bilateral lung parenchymal opacification not substantially different from comparison. Pneumomediastinum and subcutaneous emphysema not significantly different.
--- NOTE | 2021-01-31 10:48 | P.PN ---
Subjective Date of Service: 01/31/21 Primary Care Provider: Ted roberson Chief Complaint: COVID-19 pneumonia Patient is BiPAP dependent. No issues overnight. Physical Examination - Vital Signs Temperature: 98.6 F Blood Pressure: 121/80 Pulse: 68 Respirations: 21 Pulse Ox (%): 91 - Physical Exam General: Alert, In no apparent distress HEENT: Other (BiPAP) Respiratory: Other (Nonlabored breathing) Cardiovascular: Regular rate/rhythm, Normal S1 S2 Gastrointestinal: Soft and benign, Non-distended Musculoskeletal: No swelling Integumentary: No rashes Assessment And Plan - Current Problems (Diagnosis) (1) Pneumonia due to 2019 novel coronavirus Current Visit: Yes Status: Acute (2) Acute respiratory failure with hypoxia Current Visit: Yes Status: Acute (3) Coronary artery disease Current Visit: Yes Status: Acute Physician Review Additional Text: Assessment And Plan acute hypoxemic respiratory failure secondary to COVID-19 pneumonia CAD HTN Constipation BiPAP dependent. Weaned to high-flow as tolerated Continue IV Solu-Medrol, bronchodilators, vitamin supplementation, and zinc supplementation. s/p Actemra. Eliquis for DVT prophylaxis. dobhoff placed 8/ for feeding while on BiPAP. Morphine IV p.r.n. for anxiety and shortness of breath. VTE: eliquis Code: full
[2021-01-31] MEDS: GLUCERNA SHAKE 237 ML CAN PO SCH (21:00)
[2021-01-31] MEDS: ATORVASTATIN 40 MG TAB PO SCH (21:01)
[2021-02-01] MEDS: ACETAMINOPHEN 500 MG TAB PO PRN
[2021-02-01 05:14] LABS: Absolute Lymphocytes (CBC) 0.4 K/uL (0.7-4.9); Basophils % 0.2 % (0-1.3); Hematocrit 45.6 % (39.6-49.0); Lymphocytes % 2.8 % (15.3-44.8); MPV 9.3 fL (7.6-11.3); RBC Red Blood Cell Count 5.09 M/uL (4.33-5.43)
[2021-02-01 05:37] LABS: ALT/SGPT 70 U/L (12-78); AST/SGOT 27 U/L (15-37); Albumin 2.8 g/dL (3.4-5.0); Alkaline Phosphatase 52 U/L (45-117); BUN Blood Urea Nitrogen 44 mg/dL (7-18); Bicarbonate 32 mmol/L (21-32); Bilirubin Total 1.1 mg/dL (0.2-1.0); Glucose Level 128 mg/dL (74-106); Potassium 4.6 mmol/L (3.5-5.1); Protein, Total 5.4 g/dL (6.4-8.2); Sodium Level 142 mmol/L (136-145)
[2021-02-01] MEDS: INSULIN -REGULAR HUMAN 50 UNIT/0.5 ML ML SQ SCH ×4 (07:30→20:35)
[2021-02-01] MEDS: ZINC SULFATE 220 MG CAP PO SCH (08:28)
[2021-02-01] MEDS: ASPIRIN EC 81 MG TAB PO SCH (08:28)
[2021-02-01] MEDS: ASCORBIC ACID 500 MG TABLET PO SCH ×4 (08:28→20:34)
[2021-02-01] MEDS: VITAMIN D 1000 UNIT TAB PO SCH (08:28)
[2021-02-01] MEDS: APIXABAN 5 MG TABLET PO SCH ×2 (08:29→20:34)
[2021-02-01] MEDS: THIAMINE HCL 100 MG TABLET PO SCH (08:29)
[2021-02-01] MEDS: BENZONATATE 100 MG CAP PO PRN ×2 (08:29→21:00)
[2021-02-01] MEDS: METHYLPREDNISOLONE 40 MG INJ IV SCH ×3 (08:29→20:34)
[2021-02-01] MEDS: GLUCERNA SHAKE 237 ML CAN PO SCH ×3 (08:29→21:00)
[2021-02-01] MEDS: FLUCONAZOLE 100 MG TAB PO SCH (08:31)
--- NOTE | 2021-02-01 10:07 | RAD REPORT ---
EXAM DESCRIPTION: RAD - Chest Single View - 02/01/2021 9:53 am CLINICAL HISTORY: pneumomediastinum COMPARISON: Chest Single View dated 01/31/2021; Chest Single View dated 01/30/2021; Chest Single View dated 01/29/2021; Abdomen 1 View (KUB) dated 01/28/2021 FINDINGS: Similar moderate airspace disease bilaterally. The heart size is within normal limits.No a cute osseous abnormality. Pneumomediastinum and subcutaneous emphysema is again noted. Small left-marychuy ed pneumothorax is again noted. IMPRESSION: No significant change with pneumomediastinum, small left apical pneumothorax, and modera te widespread bilateral airspace disease.
--- NOTE | 2021-02-01 10:41 | P.PN ---
Subjective Date of Service: 02/01/21 Primary Care Provider: Ted roberson Chief Complaint: COVID-19 pneumonia Stable cooperating Review of Systems General: Weakness Respiratory: Shortness of Breath Physical Examination - Vital Signs Temperature: 96.8 F Blood Pressure: 132/87 Pulse: 70 Respirations: 25 Pulse Ox (%): 90 - Physical Exam General: Alert, Oriented x3, Cooperative, Mild distress Assessment & Plan - Problems (Diagnosis) (1) Pneumonia due to 2019 novel coronavirus Current Visit: Yes Status: Acute Plan: Stable/ Refused Dawoa/70% Fio2/ WBC declining/LD sprionolactone
[2021-02-01] MEDS: SPIRONOLACTONE 25 MG TABLET PO SCH (11:31)
--- NOTE | 2021-02-01 12:39 | P.PN ---
Subjective Date of Service: 02/01/21 Primary Care Provider: Ted roberson Chief Complaint: COVID-19 pneumonia No changes from yesterday. Patient remained dependent on BiPAP. Physical Examination - Vital Signs Temperature: 96.8 F Blood Pressure: 132/87 Pulse: 70 Respirations: 25 Pulse Ox (%): 90 - Physical Exam General: Alert, In no apparent distress HEENT: Other (BiPAP) Neck: JVD not distended Respiratory: Other (Nonlabored breathing) Cardiovascular: No edema, Regular rate/rhythm, Normal S1 S2 Gastrointestinal: Soft and benign, Non-distended, No tenderness Musculoskeletal: No swelling Integumentary: No rashes Neurological: Normal strength at 5/5 x4 extr Assessment And Plan - Current Problems (Diagnosis) (1) Pneumonia due to 2019 novel coronavirus Current Visit: Yes Status: Acute (2) Acute respiratory failure with hypoxia Current Visit: Yes Status: Acute (3) Coronary artery disease Current Visit: Yes Status: Acute Physician Review Additional Text: Assessment And Plan acute hypoxemic respiratory failure secondary to COVID-19 pneumonia CAD HTN Constipation BiPAP dependent. Weaned to high-flow as tolerated Continue IV Solu-Medrol, bronchodilators, vitamin supplementation, and zinc supplementation. s/p Actemra. Chest x-ray: Pneumomediastinum and small left apical pneumothorax. Weaned from BiPAP to high-flow oxygen as possible. Eliquis for DVT prophylaxis. dobhoff placed 8/4 for feeding while on BiPAP. Morphine IV p.r.n. for anxiety and shortness of breath. VTE: eliquis Code: full
[2021-02-01] MEDS: ATORVASTATIN 40 MG TAB PO SCH (20:34)
[2021-02-02] MEDS: ACETAMINOPHEN 500 MG TAB PO PRN (00:53)
[2021-02-02 05:21] LABS: Absolute Lymphocytes (CBC) 0.4 K/uL (0.7-4.9); Basophils % 0.2 % (0-1.3); Lymphocytes % 2.3 % (15.3-44.8); MPV 8.9 fL (7.6-11.3); RBC Red Blood Cell Count 5.15 M/uL (4.33-5.43)
[2021-02-02 05:35] LABS: BUN Blood Urea Nitrogen 43 mg/dL (7-18); Bicarbonate 31 mmol/L (21-32); Glucose Level 125 mg/dL (74-106); Potassium 4.7 mmol/L (3.5-5.1); Sodium Level 140 mmol/L (136-145)
[2021-02-02] MEDS: INSULIN -REGULAR HUMAN 50 UNIT/0.5 ML ML SQ SCH ×4 (07:30→21:00)
[2021-02-02] MEDS: GLUCERNA SHAKE 237 ML CAN PO SCH ×3 (09:00→21:00)
[2021-02-02 09:12] LABS: Platelet Estimate ADEQ; White Blood Cell Scan OK (OK)
[2021-02-02 09:13] LABS: Blood Morphology Comment NOT SEEN (NOT SEEN)
[2021-02-02] MEDS: BENZONATATE 100 MG CAP PO PRN ×2 (09:16→17:14)
[2021-02-02] MEDS: APIXABAN 5 MG TABLET PO SCH ×2 (09:16→21:00)
[2021-02-02] MEDS: THIAMINE HCL 100 MG TABLET PO SCH (09:16)
[2021-02-02] MEDS: VITAMIN D 1000 UNIT TAB PO SCH (09:16)
[2021-02-02] MEDS: SPIRONOLACTONE 25 MG TABLET PO SCH (09:16)
[2021-02-02] MEDS: ZINC SULFATE 220 MG CAP PO SCH (09:17)
[2021-02-02] MEDS: ASCORBIC ACID 500 MG TABLET PO SCH ×4 (09:17→21:00)
[2021-02-02] MEDS: ASPIRIN EC 81 MG TAB PO SCH (09:17)
[2021-02-02] MEDS: FLUCONAZOLE 100 MG TAB PO SCH (09:17)
[2021-02-02] MEDS: METHYLPREDNISOLONE 40 MG INJ IV SCH ×3 (09:17→21:00)
[2021-02-02] MEDS: MORPHINE 2 MG/ML SYR IV PRN (09:18)
--- NOTE | 2021-02-02 15:20 | P.PN ---
Subjective Date of Service: 02/02/21 Primary Care Provider: Ted roberson Chief Complaint: COVID-19 pneumonia No changes from yesterday. Patient remain dependent on BiPAP. FiO2 trending down. Physical Examination - Vital Signs Temperature: 97.4 F Blood Pressure: 126/82 Pulse: 96 Respirations: 27 Pulse Ox (%): 96 - Physical Exam General: In no apparent distress HEENT: Other (BiPAP) Respiratory: Other (Nonlabored breathing) Cardiovascular: Regular rate/rhythm, Normal S1 S2 Gastrointestinal: Soft and benign, Non-distended Musculoskeletal: No swelling Integumentary: No rashes Neurological: Normal strength at 5/5 x4 extr Assessment And Plan - Current Problems (Diagnosis) (1) Pneumonia due to 2019 novel coronavirus Current Visit: Yes Status: Acute (2) Acute respiratory failure with hypoxia Current Visit: Yes Status: Acute (3) Coronary artery disease Current Visit: Yes Status: Acute Physician Review Additional Text: Assessment And Plan acute hypoxemic respiratory failure secondary to COVID-19 pneumonia CAD HTN Constipation BiPAP dependent. Weaned to high-flow as tolerated Continue IV Solu-Medrol, bronchodilators, vitamin supplementation, and zinc supplementation. s/p Actemra. Chest x-ray: Pneumomediastinum and small left apical pneumothorax. Weaned from BiPAP to high-flow oxygen as possible. Eliquis for DVT prophylaxis. dobhoff placed 8/4 for feeding while on BiPAP. Morphine IV p.r.n. for anxiety and shortness of breath. Continue to monitor. VTE: eliquis Code: full
[2021-02-02] MEDS: ATORVASTATIN 40 MG TAB PO SCH (21:00)
[2021-02-03] MEDS: MORPHINE 2 MG/ML SYR IV PRN ×2 (05:00→23:00)
[2021-02-03 05:15] LABS: Ferritin 705.2 ng/mL (26-388)
[2021-02-03 05:26] LABS: C-Reactive Protein < 2.90 mg/L (<3.00)
--- NOTE | 2021-02-03 06:08 | P.PN ---
Subjective Date of Service: 02/03/21 Primary Care Provider: Ted roberson Chief Complaint: COVID-19 pneumonia Subjective: No new changes (still requiring high levels of O2 supplementation. no significant changes. feels ok. unable to wean down) Review of Systems 10-point ROS is otherwise unremarkable Physical Examination - Vital Signs Temperature: 96.9 F Blood Pressure: 114/76 Pulse: 58 Respirations: 18 Pulse Ox (%): 97 Assessment & Plan Physician Review Additional Text: Physical Exam General: AAOx3, NAD HEENT: Normal conjunctiva, sclera anicteric Respiratory: Tachypneic on 100% FiO2 Cardiovascular: Regular rate/rhythm, no edema Gastrointestinal: Soft and benign, Non-distended Musculoskeletal: No joint swelling/tenderness Integumentary: No rashes Assessment And Plan acute hypoxemic respiratory failure secondary to COVID-19 pneumonia Small left apical pneumothorax, with pneumomediastinum CAD HTN Constipation BiPAP dependent. weaned to HFNC/non-rebreather, pt with pneumothorax Continue IV Solu-Medrol, bronchodilators, vitamin supplementation, and zinc supplementation. s/p Actemra Pulm following CXR: improvement of small L apical pneumo Eliquis for DVT prophylaxis. dobhoff placed 8/4 for feeding while on BiPAP. Morphine IV p.r.n. for anxiety and shortness of breath. 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
[2021-02-03] MEDS: INSULIN -REGULAR HUMAN 50 UNIT/0.5 ML ML SQ SCH ×4 (07:30→20:05)
[2021-02-03] MEDS: FLUCONAZOLE 100 MG TAB PO SCH (08:43)
[2021-02-03] MEDS: VITAMIN D 1000 UNIT TAB PO SCH (08:43)
[2021-02-03] MEDS: THIAMINE HCL 100 MG TABLET PO SCH (08:43)
[2021-02-03] MEDS: SPIRONOLACTONE 25 MG TABLET PO SCH (08:44)
[2021-02-03] MEDS: ASCORBIC ACID 500 MG TABLET PO SCH ×4 (08:44→20:04)
[2021-02-03] MEDS: ALPRAZOLAM 0.5 MG TABLET PO PRN (08:44)
[2021-02-03] MEDS: APIXABAN 5 MG TABLET PO SCH ×2 (08:44→20:04)
[2021-02-03] MEDS: GLUCERNA SHAKE 237 ML CAN PO SCH ×3 (08:44→20:05)
[2021-02-03] MEDS: ASPIRIN EC 81 MG TAB PO SCH (08:44)
[2021-02-03] MEDS: METHYLPREDNISOLONE 40 MG INJ IV SCH ×3 (08:45→20:04)
[2021-02-03] MEDS: ZINC SULFATE 220 MG CAP PO SCH (08:45)
--- NOTE | 2021-02-03 09:04 | RAD REPORT ---
EXAM DESCRIPTION: RAD - Chest Single View - 02/03/2021 8:15 am CLINICAL HISTORY: f/u pneumo Chest pain. COMPARISON: Chest Single View dated 02/01/2021; Chest Single View dated 01/31/2021; Chest Single View dated 01/30/2021; Chest Single View dated 01/29/2021 FINDINGS: Portable technique limits examination quality. Bilateral pulmonary opacities showing no real change since comparative examination dated 02/01/2021. Mild pneumomediastinum and small left sided pneumothorax appear to have diminished in size mildly sin ce comparative exam. The heart size is upper limit of normal.
[2021-02-03] MEDS: ATORVASTATIN 40 MG TAB PO SCH (20:04)
[2021-02-04 05:34] LABS: Absolute Lymphocytes (CBC) 0.3 K/uL (0.7-4.9); Basophils % 0.2 % (0-1.3); Hematocrit 41.5 % (39.6-49.0); Lymphocytes % 1.4 % (15.3-44.8); MPV 9.4 fL (7.6-11.3); RBC Red Blood Cell Count 4.65 M/uL (4.33-5.43)
[2021-02-04 05:47] LABS: BUN Blood Urea Nitrogen 39 mg/dL (7-18); Bicarbonate 28 mmol/L (21-32); Ferritin 651.2 ng/mL (26-388); Glucose Level 118 mg/dL (74-106); Magnesium 2.6 mg/dL (1.8-2.4); Sodium Level 137 mmol/L (136-145)
[2021-02-04 05:49] LABS: C-Reactive Protein < 2.90 mg/L (<3.00)
--- NOTE | 2021-02-04 06:16 | P.PN ---
Subjective Date of Service: 02/04/21 Primary Care Provider: Ted roberson Chief Complaint: COVID-19 pneumonia Subjective: Improving (feels slightly better, no acute events overnight) Review of Systems 10-point ROS is otherwise unremarkable Physical Examination - Vital Signs Temperature: 98.6 F Blood Pressure: 118/81 Pulse: 79 Respirations: 22 Pulse Ox (%): 94 Assessment & Plan Physician Review Additional Text: Physical Exam General: AAOx3, NAD HEENT: Normal conjunctiva, sclera anicteric Respiratory: Tachypneic on 100% FiO2 HFNC/NR Cardiovascular: Regular rate/rhythm, no edema Gastrointestinal: Soft and benign, Non-distended Musculoskeletal: No joint swelling/tenderness Integumentary: No rashes Assessment And Plan acute hypoxemic respiratory failure secondary to COVID-19 pneumonia Small left apical pneumothorax, with pneumomediastinum CAD HTN Constipation was BiPAP dependent. weaned to HFNC/non-rebreather, pt with pneumothorax Continue IV Solu-Medrol, bronchodilators, vitamin supplementation, and zinc supplementation. s/p Actemra Pulm following - decreased steroids 02/04 CXR: improvement of small L apical pneumo Eliquis for DVT prophylaxis. dobhoff placed 01/21 for feeding while on BiPAP. pt now taking more PO today Morphine IV p.r.n. for anxiety and shortness of breath. 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
[2021-02-04] MEDS: INSULIN -REGULAR HUMAN 50 UNIT/0.5 ML ML SQ SCH ×4 (07:30→20:24)
[2021-02-04] MEDS: VITAMIN D 1000 UNIT TAB PO SCH (08:27)
[2021-02-04] MEDS: FLUCONAZOLE 100 MG TAB PO SCH (08:27)
[2021-02-04] MEDS: ZINC SULFATE 220 MG CAP PO SCH (08:28)
[2021-02-04] MEDS: GLUCERNA SHAKE 237 ML CAN PO SCH ×3 (08:28→20:25)
[2021-02-04] MEDS: METHYLPREDNISOLONE 40 MG INJ IV SCH ×2 (08:28→20:24)
[2021-02-04] MEDS: THIAMINE HCL 100 MG TABLET PO SCH (08:28)
[2021-02-04] MEDS: ALPRAZOLAM 0.5 MG TABLET PO PRN ×2 (08:28→20:25)
[2021-02-04] MEDS: APIXABAN 5 MG TABLET PO SCH ×2 (08:28→20:25)
[2021-02-04] MEDS: SPIRONOLACTONE 25 MG TABLET PO SCH (08:28)
[2021-02-04] MEDS: ASPIRIN EC 81 MG TAB PO SCH (08:28)
[2021-02-04] MEDS: ASCORBIC ACID 500 MG TABLET PO SCH ×4 (08:28→20:25)
--- NOTE | 2021-02-04 11:47 | P.PN ---
Subjective Date of Service: 02/04/21 Primary Care Provider: Ted roberson Chief Complaint: COVID-19 pneumonia Resp failure NC Review of Systems General: Weakness Respiratory: Shortness of Breath Physical Examination - Vital Signs Temperature: 98.6 F Blood Pressure: 118/81 Pulse: 79 Respirations: 22 Pulse Ox (%): 94 - Physical Exam General: Alert, Cooperative, Mild distress Assessment & Plan - Problems (Diagnosis) (1) Pneumonia due to 2019 novel coronavirus Current Visit: Yes Status: Acute Plan: Resp failure NCWBC elevated/CXRY reviewed NC Reduce steroids.
[2021-02-04] MEDS: ATORVASTATIN 40 MG TAB PO SCH (20:24)
[2021-02-04] MEDS: BENZONATATE 100 MG CAP PO PRN (20:25)
[2021-02-04] MEDS: MORPHINE 2 MG/ML SYR IV PRN (22:30)
[2021-02-05 05:33] LABS: BUN Blood Urea Nitrogen 31 mg/dL (7-18); Bicarbonate 30 mmol/L (21-32); Ferritin 658.4 ng/mL (26-388); Glucose Level 111 mg/dL (74-106); Magnesium 2.6 mg/dL (1.8-2.4); Phosphorus 4.7 mg/dL (2.5-4.9); Potassium 5.3 mmol/L (3.5-5.1); Sodium Level 137 mmol/L (136-145)
[2021-02-05 05:36] LABS: C-Reactive Protein < 2.90 mg/L (<3.00)
--- NOTE | 2021-02-05 05:56 | P.PN ---
Subjective Date of Service: 02/05/21 Primary Care Provider: Ted roberson Chief Complaint: COVID-19 pneumonia Subjective: No new changes Review of Systems 10-point ROS is otherwise unremarkable Physical Examination - Vital Signs Temperature: 96.9 F Blood Pressure: 93/70 Pulse: 65 Respirations: 18 Pulse Ox (%): 90 Assessment & Plan Physician Review Additional Text: Physical Exam General: AAOx3, NAD HEENT: Normal conjunctiva, sclera anicteric Respiratory: Tachypneic on 100% FiO2 HFNC/NR Cardiovascular: Regular rate/rhythm, no edema Gastrointestinal: Soft and benign, Non-distended Musculoskeletal: No joint swelling/tenderness Integumentary: No rashes Assessment And Plan acute hypoxemic respiratory failure secondary to COVID-19 pneumonia Small left apical pneumothorax, with pneumomediastinum CAD HTN Constipation was BiPAP dependent. weaned to HFNC/non-rebreather, pt with pneumothorax Continue IV Solu-Medrol, bronchodilators, vitamin supplementation, and zinc supplementation. s/p Actemra Pulm following - decreased steroids 02/04 CXR: improvement of small L apical pneumo; repeat in a.m. Eliquis for DVT prophylaxis. dobhoff placed 01/21 for feeding while on BiPAP. pt now taking more PO Morphine IV p.r.n. for anxiety and shortness of breath. 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
[2021-02-05] MEDS: INSULIN -REGULAR HUMAN 50 UNIT/0.5 ML ML SQ SCH ×4 (07:15→21:00)
[2021-02-05] MEDS: THIAMINE HCL 100 MG TABLET PO SCH (07:59)
[2021-02-05] MEDS: METHYLPREDNISOLONE 40 MG INJ IV SCH ×2 (07:59→21:39)
[2021-02-05] MEDS: FLUCONAZOLE 100 MG TAB PO SCH (07:59)
[2021-02-05] MEDS: ASPIRIN EC 81 MG TAB PO SCH (07:59)
[2021-02-05] MEDS: VITAMIN D 1000 UNIT TAB PO SCH (07:59)
[2021-02-05] MEDS: ASCORBIC ACID 500 MG TABLET PO SCH ×4 (07:59→21:39)
[2021-02-05] MEDS: APIXABAN 5 MG TABLET PO SCH ×2 (07:59→21:39)
[2021-02-05] MEDS: ZINC SULFATE 220 MG CAP PO SCH (08:00)
[2021-02-05] MEDS: GLUCERNA SHAKE 237 ML CAN PO SCH ×3 (08:00→20:43)
[2021-02-05] MEDS: ALPRAZOLAM 0.5 MG TABLET PO PRN (08:02)
[2021-02-05] MEDS: MORPHINE 2 MG/ML SYR IV PRN (08:25)
[2021-02-05] MEDS: ATORVASTATIN 40 MG TAB PO SCH (21:39)
[2021-02-06 05:20] LABS: Absolute Lymphocytes (CBC) 0.2 K/uL (0.7-4.9); Basophils % 0.3 % (0-1.3); Hematocrit 42.5 % (39.6-49.0); Lymphocytes % 1.3 % (15.3-44.8); MPV 8.5 fL (7.6-11.3); RBC Red Blood Cell Count 4.74 M/uL (4.33-5.43)
[2021-02-06 06:24] LABS: BUN Blood Urea Nitrogen 26 mg/dL (7-18); Bicarbonate 29 mmol/L (21-32); Glucose Level 114 mg/dL (74-106); Potassium 5.2 mmol/L (3.5-5.1); Sodium Level 134 mmol/L (136-145)
[2021-02-06 06:25] LABS: C-Reactive Protein < 2.90 mg/L (<3.00)
[2021-02-06 06:39] LABS: Ferritin 608.6 ng/mL (26-388)
[2021-02-06] MEDS: INSULIN -REGULAR HUMAN 50 UNIT/0.5 ML ML SQ SCH ×4 (07:30→20:48)
--- NOTE | 2021-02-06 07:50 | RAD REPORT ---
EXAM DESCRIPTION: RAD - Chest Single View - 02/06/2021 5:56 am CLINICAL HISTORY: f/u pneumothorax COMPARISON: February 03, February 01 TECHNIQUE: AP portable chest image was obtained 02/06/2021 5:56 am . FINDINGS: Lung volumes are low. Mild interstitial alveolar opacities remain. Pneumomediastinum patte rn has shown improvement. Heart and vasculature are normal. No pleural effusion has developed. No samantha surable right-sided pneumothorax. The suspected left-sided pneumothorax has not changed. No acute bon y abnormality seen. No acute aortic findings suspected. IMPRESSION: Stable chest examination as detailed compared with February 03.
[2021-02-06] MEDS: ASPIRIN EC 81 MG TAB PO SCH (08:36)
[2021-02-06] MEDS: THIAMINE HCL 100 MG TABLET PO SCH (08:36)
[2021-02-06] MEDS: VITAMIN D 1000 UNIT TAB PO SCH (08:36)
[2021-02-06] MEDS: FLUCONAZOLE 100 MG TAB PO SCH (08:36)
[2021-02-06] MEDS: APIXABAN 5 MG TABLET PO SCH ×2 (08:37→20:47)
[2021-02-06] MEDS: ASCORBIC ACID 500 MG TABLET PO SCH ×4 (08:37→20:47)
[2021-02-06] MEDS: GLUCERNA SHAKE 237 ML CAN PO SCH ×3 (08:37→20:50)
[2021-02-06] MEDS: ZINC SULFATE 220 MG CAP PO SCH (08:38)
[2021-02-06] MEDS: METHYLPREDNISOLONE 40 MG INJ IV SCH ×2 (08:47→20:47)
--- NOTE | 2021-02-06 14:31 | P.PN ---
Subjective Date of Service: 02/06/21 Primary Care Provider: Ted roberson Chief Complaint: COVID-19 pneumonia Subjective: No new changes (No acute events overnight. Patient reports feeling about the same as yesterday, looks a little bit more tired today. Voiding, last BM few days ago, no nausea/vomiting, tolerating p.o. oxygen saturation drops quickly with minimal movement of nonrebreather) Review of Systems 10-point ROS is otherwise unremarkable Physical Examination - Vital Signs Temperature: 97.2 F Blood Pressure: 107/87 Pulse: 94 Respirations: 29 Pulse Ox (%): 81 Assessment & Plan Physician Review Additional Text: Physical Exam General: AAOx3, NAD HEENT: Normal conjunctiva, sclera anicteric Respiratory: Tachypneic on 100% NR Cardiovascular: Regular rate/rhythm, no edema Gastrointestinal: Soft and benign, Non-distended Musculoskeletal: No joint swelling/tenderness Integumentary: No rashes Assessment And Plan acute hypoxemic respiratory failure secondary to COVID-19 pneumonia Small left apical pneumothorax, with pneumomediastinum CAD HTN Constipation was BiPAP dependent. weaned to HFNC/non-rebreather, pt with pneumothorax Continue IV Solu-Medrol, bronchodilators, vitamin supplementation, and zinc supplementation. s/p Actemra Pulm following - decreased steroids 02/04 CXR: (02/06): Unchanged left pneumothorax, improved pneumomediastinum Eliquis for DVT prophylaxis. dobhoff placed 01/21 for feeding while on BiPAP. pt now taking more PO Morphine IV p.r.n. for anxiety and shortness of breath. 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
--- NOTE | 2021-02-06 18:48 | P.PN ---
Subjective Date of Service: 02/06/21 Primary Care Provider: Ted roberson Chief Complaint: COVID-19 pneumonia NC still very hypoxic/CXRY improved Review of Systems General: Weakness Respiratory: Shortness of Breath Physical Examination - Vital Signs Temperature: 97.5 F Blood Pressure: 109/73 Pulse: 97 Respirations: 30 Pulse Ox (%): 88 - Physical Exam General: Alert, Moderate distress Assessment & Plan - Problems (Diagnosis) (1) Pneumonia due to 2019 novel coronavirus Current Visit: Yes Status: Acute Plan: Resp failure still very hypoxic/CXRY has improved
[2021-02-06] MEDS: ALPRAZOLAM 0.5 MG TABLET PO PRN (20:47)
[2021-02-06] MEDS: ATORVASTATIN 40 MG TAB PO SCH (20:47)
[2021-02-07] MEDS: MORPHINE 2 MG/ML SYR IV PRN ×3 (04:09→23:38)
[2021-02-07 05:57] LABS: Arterial Blood Carboxyhemoglob 1.3 % (0-1.5); Blood Gas Oxyhemoglobin 76.8 % (94-97); Blood O2 Saturation 78.4 % (92-98.5)
--- NOTE | 2021-02-07 06:04 | P.PN ---
Subjective Date of Service: 02/07/21 Primary Care Provider: Ted roberson Chief Complaint: COVID-19 pneumonia Subjective: No new changes (Feels about the same, maybe a little bit better. Eating about half his plate, 2-3 days since last BM, no nausea/bloating, urinating without issue) Review of Systems 10-point ROS is otherwise unremarkable Physical Examination - Vital Signs Temperature: 97.9 F Blood Pressure: 98/74 Pulse: 77 Respirations: 22 Pulse Ox (%): 87 Assessment & Plan Physician Review Additional Text: Physical Exam General: AAOx3, NAD HEENT: Normal conjunctiva, sclera anicteric Respiratory: Tachypneic on 100% NR Cardiovascular: Regular rate/rhythm, no edema Gastrointestinal: Soft and benign, Non-distended Musculoskeletal: No joint swelling/tenderness Integumentary: No rashes Assessment And Plan acute hypoxemic respiratory failure secondary to COVID-19 pneumonia Small left apical pneumothorax, with pneumomediastinum CAD HTN Constipation was BiPAP dependent. weaned to HFNC/non-rebreather, pt with pneumothorax Continue IV Solu-Medrol, bronchodilators, vitamin supplementation, and zinc supplementation. s/p Actemra Pulm following CXR: (02/06): Unchanged left pneumothorax, improved pneumomediastinum Eliquis for DVT prophylaxis. Scheduled for CT chest today dobhoff placed 01/21 for feeding while on BiPAP. pt now taking more PO, Dobbhoff was removed Morphine IV p.r.n. for anxiety and shortness of breath. 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
[2021-02-07] MEDS: INSULIN -REGULAR HUMAN 50 UNIT/0.5 ML ML SQ SCH ×4 (07:30→21:00)
[2021-02-07 07:34] LABS: Absolute Lymphocytes (CBC) 0.2 K/uL (0.7-4.9); Basophils % 0.2 % (0-1.3); Hematocrit 40.3 % (39.6-49.0); Lymphocytes % 1.4 % (15.3-44.8); MPV 8.7 fL (7.6-11.3); RBC Red Blood Cell Count 4.51 M/uL (4.33-5.43)
[2021-02-07 08:04] LABS: BUN Blood Urea Nitrogen 24 mg/dL (7-18); Bicarbonate 30 mmol/L (21-32); Ferritin 536.4 ng/mL (26-388); Glucose Level 101 mg/dL (74-106); Potassium 4.7 mmol/L (3.5-5.1); Sodium Level 134 mmol/L (136-145)
[2021-02-07 08:06] LABS: C-Reactive Protein < 2.90 mg/L (<3.00)
[2021-02-07] MEDS: METHYLPREDNISOLONE 40 MG INJ IV SCH ×3 (08:55→21:06)
[2021-02-07] MEDS: VITAMIN D 1000 UNIT TAB PO SCH (08:56)
[2021-02-07] MEDS: ASCORBIC ACID 500 MG TABLET PO SCH ×4 (08:57→21:05)
[2021-02-07] MEDS: ZINC SULFATE 220 MG CAP PO SCH (08:57)
[2021-02-07] MEDS: FLUCONAZOLE 100 MG TAB PO SCH (08:57)
[2021-02-07] MEDS: ASPIRIN EC 81 MG TAB PO SCH (08:57)
[2021-02-07] MEDS: GLUCERNA SHAKE 237 ML CAN PO SCH (08:57)
[2021-02-07] MEDS: APIXABAN 5 MG TABLET PO SCH ×2 (08:57→21:05)
[2021-02-07] MEDS: THIAMINE HCL 100 MG TABLET PO SCH (08:57)
[2021-02-07] MEDS: ALPRAZOLAM 0.5 MG TABLET PO PRN (08:59)
--- NOTE | 2021-02-07 10:44 | RAD REPORT ---
EXAM DESCRIPTION: CT - Thorax Wo Con - 02/07/2021 9:31 am CLINICAL HISTORY: Respiratory failure COMPARISON: February 03 and February 14 1021 TECHNIQUE: Computed axial tomography of the chest was obtained. Contrast was not requested. All CT scans are performed using dose optimization technique as appropriate and may include automated exposure control or mA/KV adjustment according to patient size. FINDINGS: The evaluation of mediastinum, [place] and vessels is limited secondary to lack of IV contras t administration. Moderate diffuse ground-glass opacities are present predominantly within the lower lobes bilaterally. Small to moderate amount of pneumomediastinum is diminished from the February 03, 2021 exam A pleural effusion is not present. No pericardial effusion No pneumothorax Subcutaneous emphysema has resolved from the February 03, 2021 exam IMPRESSION: Moderate predominately bilateral lower lobe ground-glass opacities can be seen with Covi d pneumonia. This is without significant change from February 06, 2021 Small to moderate amount of pneumomediastinum diminished from February 03, 2021
[2021-02-07] MEDS: ACETAMINOPHEN 500 MG TAB PO PRN ×2 (10:45→21:05)
--- NOTE | 2021-02-07 10:56 | P.PN ---
Subjective Date of Service: 02/07/21 Primary Care Provider: Ted roberson Chief Complaint: COVID-19 pneumonia NC still very hypoxic/CT scan severe COVID penumonia Review of Systems General: Weakness Respiratory: Shortness of Breath Physical Examination - Vital Signs Temperature: 97.9 F Blood Pressure: 98/74 Pulse: 77 Respirations: 22 Pulse Ox (%): 87 - Physical Exam General: Alert, Oriented x3, Cooperative, Mild distress Assessment & Plan - Problems (Diagnosis) (1) Pneumonia due to 2019 novel coronavirus Current Visit: Yes Status: Acute Plan: Resp failure Ct scan severe COVID penumonia/ very hypoxic/ add levaquin and inc steroids for now
[2021-02-07] MEDS: levoFLOXacin 500 MG TAB PO SCH (12:01)
[2021-02-07 12:11] LABS: Blood Morphology Comment NOT SEEN (NOT SEEN); Platelet Estimate DECR; White Blood Cell Scan OK (OK)
[2021-02-07] MEDS: ENSURE HIGH PROTEIN 237 ML CAN PO SCH (21:00)
[2021-02-07] MEDS: ATORVASTATIN 40 MG TAB PO SCH (21:05)
[2021-02-08 05:09] LABS: Absolute Lymphocytes (CBC) 0.1 K/uL (0.7-4.9); Basophils % 0.3 % (0-1.3); Hematocrit 40.1 % (39.6-49.0); Lymphocytes % 0.8 % (15.3-44.8); MPV 8.4 fL (7.6-11.3); RBC Red Blood Cell Count 4.53 M/uL (4.33-5.43)
[2021-02-08 05:27] LABS: BUN Blood Urea Nitrogen 20 mg/dL (7-18); Bicarbonate 27 mmol/L (21-32); Glucose Level 137 mg/dL (74-106); Potassium 4.6 mmol/L (3.5-5.1); Sodium Level 133 mmol/L (136-145)
--- NOTE | 2021-02-08 06:07 | P.PN ---
Subjective Date of Service: 02/08/21 Primary Care Provider: Ted roberson Chief Complaint: COVID-19 pneumonia Subjective: No new changes (No significant changes, patient reports feeling the same, no BM in 3 to 4 days, does not feel bloated, no nausea. States he is eating 25-50% of food) Review of Systems 10-point ROS is otherwise unremarkable Physical Examination - Vital Signs Temperature: 97 F Blood Pressure: 103/75 Pulse: 92 Respirations: 27 Pulse Ox (%): 87 Assessment & Plan Physician Review Additional Text: Physical Exam General: AAOx3, NAD HEENT: Normal conjunctiva, sclera anicteric Respiratory: Tachypneic on nonrebreather/nasal cannula Cardiovascular: Regular rate/rhythm, no edema Gastrointestinal: Soft and benign, Non-distended Musculoskeletal: No joint swelling/tenderness Integumentary: No rashes Assessment And Plan acute hypoxemic respiratory failure secondary to COVID-19 pneumonia Small left apical pneumothorax, with pneumomediastinum CAD HTN Constipation was BiPAP dependent. weaned to HFNC/non-rebreather, pt with pneumothorax Continue IV Solu-Medrol, bronchodilators, vitamin supplementation, and zinc supplementation. s/p Actemra Pulm following CXR: (02/06): Unchanged left pneumothorax, improved pneumomediastinum Eliquis for DVT prophylaxis. CT chest (02/07): No pneumothorax noted, diffuse groundglass opacities, no effusion dobhoff placed / for feeding while on BiPAP. pt now taking more PO, Dobbhoff was removed Morphine IV p.r.n. for anxiety and shortness of breath. 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
[2021-02-08] MEDS: INSULIN -REGULAR HUMAN 50 UNIT/0.5 ML ML SQ SCH ×4 (07:30→20:58)
[2021-02-08] MEDS: MORPHINE 2 MG/ML SYR IV PRN (08:40)
[2021-02-08] MEDS: METHYLPREDNISOLONE 40 MG INJ IV SCH ×3 (08:41→20:58)
[2021-02-08] MEDS: VITAMIN D 1000 UNIT TAB PO SCH (08:42)
[2021-02-08] MEDS: ALPRAZOLAM 0.5 MG TABLET PO PRN (08:42)
[2021-02-08] MEDS: ENSURE HIGH PROTEIN 237 ML CAN PO SCH ×2 (08:42→20:59)
[2021-02-08] MEDS: ZINC SULFATE 220 MG CAP PO SCH (08:42)
[2021-02-08] MEDS: ASPIRIN EC 81 MG TAB PO SCH (08:42)
[2021-02-08] MEDS: ASCORBIC ACID 500 MG TABLET PO SCH ×4 (08:42→20:58)
[2021-02-08] MEDS: FLUCONAZOLE 100 MG TAB PO SCH (08:42)
[2021-02-08] MEDS: APIXABAN 5 MG TABLET PO SCH ×2 (08:42→20:58)
[2021-02-08] MEDS: levoFLOXacin 500 MG TAB PO SCH (08:42)
[2021-02-08] MEDS: THIAMINE HCL 100 MG TABLET PO SCH (08:42)
[2021-02-08 09:14] LABS: Magnesium 2.3 mg/dL (1.8-2.4)
[2021-02-08] MEDS ORDERED: HYDROMORPHONE HCL 1 MG/ML INJ IV ONE (09:19)
[2021-02-08] MEDS ORDERED: NA CHLORIDE 0.9% 1,000 ML IV SCH (15:00)
--- NOTE | 2021-02-08 20:37 | P.PN ---
Subjective Date of Service: 02/08/21 Primary Care Provider: Ted roberson Chief Complaint: COVID-19 pneumonia NC still very hypoxic Review of Systems General: Weakness Respiratory: Shortness of Breath Physical Examination - Vital Signs Temperature: 97.8 F Blood Pressure: 121/97 Pulse: 98 Respirations: 27 Pulse Ox (%): 92 - Physical Exam General: Alert, Cooperative Assessment & Plan - Problems (Diagnosis) (1) Pneumonia due to 2019 novel coronavirus Current Visit: Yes Status: Acute Plan: Resp failure very hypoxic nosig change/ NC started on IVF
[2021-02-08] MEDS: ATORVASTATIN 40 MG TAB PO SCH (20:58)
--- NOTE | 2021-02-09 06:05 | P.PN ---
Subjective Date of Service: 02/09/21 Primary Care Provider: Ted roberson Chief Complaint: COVID-19 pneumonia Subjective: No new changes (Patient feels slightly better today, no BM in a few days, hypoxic with minimal movement, has not gotten out of bed in several days, eating 25% of food. Received 1 L normal saline last night) Review of Systems 10-point ROS is otherwise unremarkable Physical Examination - Vital Signs Temperature: 97.1 F Blood Pressure: 103/81 Pulse: 63 Respirations: 18 Pulse Ox (%): 95 Assessment & Plan Physician Review Additional Text: Physical Exam General: AAOx3, NAD HEENT: Normal conjunctiva, sclera anicteric Respiratory: Tachypneic on nonrebreather/nasal cannula Cardiovascular: Regular rate/rhythm, no edema Gastrointestinal: Soft and benign, Non-distended Musculoskeletal: No joint swelling/tenderness Integumentary: No rashes Holden in place Assessment And Plan acute hypoxemic respiratory failure secondary to COVID-19 pneumonia Small left apical pneumothorax, with pneumomediastinum CAD HTN Constipation was BiPAP dependent. weaned to HFNC/non-rebreather, pt with pneumothorax Continue IV Solu-Medrol, bronchodilators, vitamin supplementation, and zinc supplementation. s/p Actemra Pulm following Eliquis for DVT prophylaxis. CT chest (02/07): No pneumothorax noted, diffuse groundglass opacities, no effusion dobhoff placed / for feeding while on BiPAP. pt now taking more PO, Dobbhoff was removed Patient has not been eating too well, IV fluids given yesterday, may benefit from more, will evaluate how much p.o. intake he is able to do today Morphine IV p.r.n. for anxiety and shortness of breath. 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
[2021-02-09] MEDS: INSULIN -REGULAR HUMAN 50 UNIT/0.5 ML ML SQ SCH ×4 (07:30→21:00)
[2021-02-09] MEDS: APIXABAN 5 MG TABLET PO SCH ×2 (08:53→21:10)
[2021-02-09] MEDS: FLUCONAZOLE 100 MG TAB PO SCH (08:53)
[2021-02-09] MEDS: THIAMINE HCL 100 MG TABLET PO SCH (08:54)
[2021-02-09] MEDS: ASPIRIN EC 81 MG TAB PO SCH (08:54)
[2021-02-09] MEDS: ZINC SULFATE 220 MG CAP PO SCH (08:54)
[2021-02-09] MEDS: ASCORBIC ACID 500 MG TABLET PO SCH ×4 (08:54→21:12)
[2021-02-09] MEDS: VITAMIN D 1000 UNIT TAB PO SCH (08:54)
[2021-02-09] MEDS: ALPRAZOLAM 0.5 MG TABLET PO PRN (08:54)
[2021-02-09] MEDS: levoFLOXacin 500 MG TAB PO SCH (08:54)
[2021-02-09] MEDS: METHYLPREDNISOLONE 40 MG INJ IV SCH ×3 (08:55→21:11)
[2021-02-09] MEDS: ENSURE HIGH PROTEIN 237 ML CAN PO SCH ×2 (08:55→21:11)
[2021-02-09] MEDS: BENZONATATE 100 MG CAP PO PRN (18:05)
[2021-02-09] MEDS: ATORVASTATIN 40 MG TAB PO SCH (21:11)
[2021-02-10 04:45] LABS: Absolute Lymphocytes (CBC) 0.1 K/uL (0.7-4.9); Basophils % 0.4 % (0-1.3); Hematocrit 31.8 % (39.6-49.0); Lymphocytes % 1.5 % (15.3-44.8); MPV 8.8 fL (7.6-11.3); RBC Red Blood Cell Count 3.54 M/uL (4.33-5.43)
[2021-02-10 04:59] LABS: BUN Blood Urea Nitrogen 34 mg/dL (7-18); Bicarbonate 29 mmol/L (21-32); Ferritin 592.1 ng/mL (26-388); Glucose Level 141 mg/dL (74-106); Sodium Level 138 mmol/L (136-145)
[2021-02-10] MEDS: MORPHINE 2 MG/ML SYR IV PRN ×5 (05:35→18:12)
[2021-02-10] MEDS ORDERED: RSI MEDICATION KIT IV ONE (06:40)
[2021-02-10] MEDS ORDERED: LIDOCAINE 1% 20 ML MDV ONE (06:45)
[2021-02-10 06:59] LABS: Blood Gas Oxyhemoglobin 62.2 % (94-97); Blood O2 Saturation 63.3 % (92-98.5)
--- NOTE | 2021-02-10 07:03 | P.PN ---
Subjective Date of Service: 02/10/21 Chart reviewed; spoke with DEEDEE Nixon about the case; patient has suddenly gotten short of breath. Nurses were unable to get a hold of pulmonary. Did a stat chest x-ray which revealed a right tension pneumothorax(Patient had a prior left-sided pneumothorax which was small which looked to have reabsorbed.) we notified General surgery for possible chest tube placement. Dr. Lawrence stated he would make his way up to the hospital. Spoke with the ER physician Dr. Gipson who was kind enough to come and assist in patient's care. He was able to insert a right chest tube. Patient oxygen saturations recovered quickly. Repeat chest x-ray showed what looks to be a small pneumothorax now. Most of the lung looks to be reinflated. Will go ahead and put the chest tube to negative pressure. Will monitor patient closely. Will notify consultants at this time. Dr. Dwyer to take overcare today for hospitalist service. Review of Systems 10-point ROS is otherwise unremarkable Physical Examination - Vital Signs Temperature: 97.1 F Blood Pressure: 154/121 Pulse: 140 Respirations: 38 Pulse Ox (%): 65 - Physical Exam General: Alert, In no apparent distress, Oriented x3 Respiratory: Other (Chest tube inserted to the right chest wall) Cardiovascular: Regular rate/rhythm, Normal S1 S2 Neurological: Normal strength at 5/5 x4 extr - Studies Medications List Reviewed: Yes Assessment & Plan - Problems (Diagnosis) (1) Pneumothorax Current Visit: Yes Status: Acute (2) Hypoxemia Current Visit: Yes Status: Acute (3) Pneumonia due to COVID-19 virus Current Visit: Yes Status: Acute - Plan Plan: 1. Continue with current plan of care. If patient's oxygenation does not stabilize he still may need to proceed with intubation. Hopefully, he will continue to improve. - Advance Directives Does patient have a Living Will: No Does patient have a Durable POA for Healthcare: No
[2021-02-10] MEDS: INSULIN -REGULAR HUMAN 50 UNIT/0.5 ML ML SQ SCH ×4 (07:30→20:09)
--- NOTE | 2021-02-10 07:37 | RAD REPORT ---
EXAM DESCRIPTION: [facility] Single View02/10/2021 6:50 am CLINICAL HISTORY: Chest tube insertion COMPARISON: February 10, 2021 FINDINGS: Right chest tube has been inserted. Residual small right pneumothorax. Re-expansion of mo st of the right lung. No other significant change IMPRESSION: Right chest tube has been inserted. Residual small right pneumothorax. Re-expansion of most of the right lung.
--- NOTE | 2021-02-10 07:39 | RAD REPORT ---
EXAM DESCRIPTION: [facility] Single View02/10/2021 6:27 am CLINICAL HISTORY: Chest pain COMPARISON: February 10, 2021 FINDINGS: Large tension right pneumothorax. No other significant change IMPRESSION: Large tension right pneumothorax. The ICU was aware of this prior to this dictation
[2021-02-10] MEDS: VITAMIN D 1000 UNIT TAB PO SCH ×2 (08:40→09:00)
[2021-02-10] MEDS: APIXABAN 5 MG TABLET PO SCH ×3 (08:41→20:12)
[2021-02-10] MEDS: THIAMINE HCL 100 MG TABLET PO SCH ×2 (08:41→09:00)
[2021-02-10] MEDS: ASCORBIC ACID 500 MG TABLET PO SCH ×5 (08:41→20:12)
[2021-02-10] MEDS: ZINC SULFATE 220 MG CAP PO SCH ×2 (08:41→09:00)
[2021-02-10] MEDS: ASPIRIN EC 81 MG TAB PO SCH ×2 (08:41→09:00)
[2021-02-10] MEDS: FLUCONAZOLE 100 MG TAB PO SCH ×2 (08:41→09:00)
[2021-02-10] MEDS: levoFLOXacin 500 MG TAB PO SCH ×2 (08:41→09:00)
[2021-02-10] MEDS: METHYLPREDNISOLONE 40 MG INJ IV SCH ×3 (08:41→20:12)
[2021-02-10] MEDS: ENSURE HIGH PROTEIN 237 ML CAN PO SCH ×3 (08:42→20:10)
--- NOTE | 2021-02-10 12:57 | EKG ---
Test Date: 2021-02-10 Test Time: 06:10:58 Senior Advocate: RT MEASUREMENT RESULTS: Intervals: Rate: 140 GA: 122 QRSD: 72 QT: 290 QTc: 442 Dennison: P: 93 GA: 122 QRS: 46 T: 110 INTERPRETIVE STATEMENTS: Sinus tachycardia with premature atrial complexes with aberrant conduction Anterolateral infarct, age undetermined Abnormal ECG Compared to ECG 01/19/2021 02:42:14 Atrial premature complex(es) now present Aberrant conduction of supraventricular beat(s) now present Sinus rhythm no longer present ST (T wave) deviation no longer present Possible ischemia no longer present Myocardial infarct finding still present Electronically Signed On 02-10-21 12:56:26 CDT by Jair Gonzalez
--- NOTE | 2021-02-10 15:59 | P.PN ---
Subjective Date of Service: 02/10/21 Primary Care Provider: Ted roberson Chief Complaint: COVID-19 pneumonia Patient developed respiratory distress on BiPAP and was desaturating to 63%. Also tachycardic up to 170. Chest x-ray demonstrated pneumothorax. Chest tube inserted by the ED physician. His oxygen saturation improved on the BiPAP after the chest tube insertion. Heart rate also improved. Patient now stable on the BiPAP. Physical Examination - Vital Signs Temperature: 97.1 F Blood Pressure: 98/66 Pulse: 99 Respirations: 20 Pulse Ox (%): 93 - Physical Exam General: Alert, In no apparent distress HEENT: Other (BiPAP) Neck: JVD not distended Respiratory: Other (Nonlabored breathing) Cardiovascular: No edema, Regular rate/rhythm, Normal S1 S2 Gastrointestinal: Soft and benign, Non-distended Musculoskeletal: No swelling Integumentary: No rashes Neurological: Normal strength at 5/5 x4 extr - Studies Medications List Reviewed: Yes Assessment And Plan - Current Problems (Diagnosis) (1) Pneumonia due to 2019 novel coronavirus Current Visit: Yes Status: Acute (2) Acute respiratory failure with hypoxia Current Visit: Yes Status: Acute (3) Coronary artery disease Current Visit: Yes Status: Acute Physician Review Additional Text: Assessment And Plan acute hypoxemic respiratory failure secondary to COVID-19 pneumonia Small left apical pneumothorax, with pneumomediastinum CAD HTN Constipation Continue BiPAP per pulmonary Chest tube in situ for pneumothorax Continue IV Solu-Medrol, bronchodilators, vitamin supplementation, and zinc supplementation. s/p Actemra Pulm following Eliquis for DVT prophylaxis. CT chest (02/07): No pneumothorax noted, diffuse groundglass opacities, no effusion May need dobhoff for feeding if patient remains on BiPAP for long. Plan is to weaned off BiPAP as soon as possible to high-flow oxygen Morphine IV p.r.n. for anxiety and shortness of breath. PT evaluation once oxygen requirement improve. guarded prognosis VTE: eliquis Code: full
--- NOTE | 2021-02-10 17:08 | P.PN ---
Subjective Date of Service: 02/10/21 Primary Care Provider: Ted roberson Chief Complaint: Respiratory failure with right-sided pneumothorax Patient's condition this morning developed significant right-sided pneumothorax a chest tube was inserted still 100% FiO2 Review of Systems is unable to be obtained Physical Examination - Vital Signs Temperature: 97.1 F Blood Pressure: 98/66 Pulse: 99 Respirations: 20 Pulse Ox (%): 93 - Physical Exam General: Unresponsive - Studies Medications List Reviewed: Yes Assessment & Plan - Problems (Diagnosis) (1) Pneumonia due to 2019 novel coronavirus Current Visit: Yes Status: Acute Plan: Respiratory failure respiratory failure on 100% FiO2 also has a right-sided chest tube continues to remain continues to remain very hypoxic labs reviewed
[2021-02-10] MEDS: ALPRAZOLAM 0.5 MG TABLET PO PRN (18:28)
[2021-02-10] MEDS: ATORVASTATIN 40 MG TAB PO SCH (20:12)
[2021-02-11] MEDS: MORPHINE 2 MG/ML SYR IV PRN ×6 (01:27→20:55)
[2021-02-11 05:22] LABS: Absolute Lymphocytes (CBC) 0.2 K/uL (0.7-4.9); Basophils % 0.2 % (0-1.3); Hematocrit 42.8 % (39.6-49.0); Lymphocytes % 3.6 % (15.3-44.8); RBC Red Blood Cell Count 4.77 M/uL (4.33-5.43)
[2021-02-11 05:35] LABS: BUN Blood Urea Nitrogen 56 mg/dL (7-18); Bicarbonate 25 mmol/L (21-32); Glucose Level 158 mg/dL (74-106); Potassium 4.8 mmol/L (3.5-5.1); Sodium Level 141 mmol/L (136-145)
[2021-02-11] MEDS: INSULIN -REGULAR HUMAN 50 UNIT/0.5 ML ML SQ SCH ×4 (07:30→20:22)
--- NOTE | 2021-02-11 07:43 | RAD REPORT ---
EXAM DESCRIPTION: RAD - Chest Single View - 02/11/2021 6:21 am CLINICAL HISTORY: Pneumothorax, chest tube COMPARISON: February 10 TECHNIQUE: AP portable chest image was obtained 02/11/2021 6:21 am . FINDINGS: Lung volumes remain low. Right-sided chest tube is in place. Chest tube has retracted slig htly with the tip at the third intercostal space compared to the prior positioning between the first and second intercostal space. Small residual pneumothorax remains on the right. This has not enlarged . No subcutaneous emphysema seen. No left-sided pneumothorax. Small amount of pneumomediastinum is gibson spected but this is probably not different from prior imaging. Heart and vasculature are normal. No new or enlarging pleural effusion. Right base atelectasis is pr esent. IMPRESSION: Right-sided chest tube is in place but has retracted with the tip at the third intercost al space compared to the prior positioning between the first and second intercostal space. Approximat landy 3.5 cm of the chest tube remains in the pleural space. Residual right-sided pneumothorax remains similar to comparison. Lung parenchymal opacification has not changed.
[2021-02-11] MEDS: ZINC SULFATE 220 MG CAP PO SCH (09:00)
[2021-02-11] MEDS: ASCORBIC ACID 500 MG TABLET PO SCH ×4 (09:00→20:25)
[2021-02-11] MEDS: ASPIRIN EC 81 MG TAB PO SCH (09:00)
[2021-02-11] MEDS: ENSURE HIGH PROTEIN 237 ML CAN PO SCH ×2 (09:00→20:22)
[2021-02-11] MEDS: THIAMINE HCL 100 MG TABLET PO SCH (09:00)
[2021-02-11] MEDS: VITAMIN D 1000 UNIT TAB PO SCH (09:00)
[2021-02-11] MEDS: METHYLPREDNISOLONE 40 MG INJ IV SCH ×3 (09:13→20:25)
[2021-02-11] MEDS ORDERED: LIDOCAINE 1% 20 ML MDV ONE (11:30)
--- NOTE | 2021-02-11 12:08 | P.OP ---
Preoperative diagnosis: Malpositioned RIGHT thoracostomy tube Postoperative diagnosis: Malpositioned RIGHT thoracostomy tube Primary procedure: Repositoin of RIGHT Thoracostomy tube Anesthesia: Local 1% lidocaine Estimated blood loss: none Specimen: none Findings: chest tube advanced 3 cm Complications: None Drain(s): Other (RIGHT thoracostomy tube) Transferred to: ICU Condition: Serious
--- NOTE | 2021-02-11 12:31 | RAD REPORT ---
EXAM DESCRIPTION: RAD - Chest Single View - 02/11/2021 12:21 pm CLINICAL HISTORY: chest tube reposition. COMPARISON: Portable chest February 11, CT chest February 07 TECHNIQUE: AP portable chest image was obtained 02/11/2021 12:21 pm . FINDINGS: Feeding tube has been placed. Tip is in the midline upper abdomen below the diaphragm. Thi s is in the body of the stomach based on the anatomy from February 07 CT imaging. Stomach is decompress ed. Right-sided chest tube has been advanced and is looped in the lateral upper right chest. Small remnan t pneumothorax on the right remains. Lung parenchymal findings are unchanged. No left-sided pneumothorax. Stable cardiomediastinal silhoue tte. Delete select IMPRESSION: Feeding tube has been placed with the tip in the body of the stomach. No abnormal bend o r kink of the tubing. Right-sided chest tube has been advanced and is curled in the lateral right apex. Small remnant right pneumothorax remains.
[2021-02-11] MEDS: ALPRAZOLAM 0.5 MG TABLET PO PRN (12:35)
[2021-02-11] MEDS: ONDANSETRON 4 MG/2 ML VIAL IV PRN (12:35)
[2021-02-11] MEDS: levoFLOXacin 500 MG TAB PO SCH (12:36)
[2021-02-11] MEDS: APIXABAN 5 MG TABLET PO SCH ×2 (12:36→20:25)
[2021-02-11] MEDS: FLUCONAZOLE 100 MG TAB PO SCH (12:36)
--- NOTE | 2021-02-11 14:04 | P.PN ---
Subjective Date of Service: 02/11/21 Primary Care Provider: Ted roberson Chief Complaint: Respiratory failure with right-sided pneumothorax No changes from yesterday. Patient stable on BiPAP. Chest x-ray reported residual right pneumothorax. Physical Examination - Vital Signs Temperature: 97.6 F Blood Pressure: 108/71 Pulse: 115 Respirations: 15 Pulse Ox (%): 95 - Physical Exam General: Alert, In no apparent distress Neck: JVD not distended Respiratory: Other (Nonlabored breathing) Cardiovascular: Regular rate/rhythm, Normal S1 S2 Gastrointestinal: Soft and benign, Non-distended Neurological: Other (No focal motor deficits) - Studies Medications List Reviewed: Yes Assessment And Plan - Current Problems (Diagnosis) (1) Pneumonia due to 2019 novel coronavirus Current Visit: Yes Status: Acute (2) Acute respiratory failure with hypoxia Current Visit: Yes Status: Acute (3) Coronary artery disease Current Visit: Yes Status: Acute Physician Review Additional Text: Assessment And Plan acute hypoxemic respiratory failure secondary to COVID-19 pneumonia Small left apical pneumothorax, with pneumomediastinum CAD HTN Constipation Continue BiPAP per pulmonary Chest tube in situ for pneumothorax. Dr. Dneton readjusted the chest you today 02/11. Continue IV Solu-Medrol, bronchodilators, vitamin supplementation, and zinc supplementation. s/p Actemra Pulm following Eliquis for DVT prophylaxis. CT chest (02/07): No pneumothorax noted, diffuse groundglass opacities, no effusion Insert Dobhoff for feeding. Plan is to weaned off BiPAP as soon as possible to high-flow oxygen Morphine IV p.r.n. for anxiety and shortness of breath. PT evaluation once oxygen requirement improve. guarded prognosis VTE: eliquis Code: full
--- NOTE | 2021-02-11 14:20 | CON ---
Date of Consultation: 02/11/2021 Brief History Of Present Illness: The patient is a 65-year-old male with a history of hypertension, coronary artery disease, who presents to the emergency department with shortness of breath, chest trina n on 01/15/2021. He was found to be positive for COVID-19 pneumonia. As such, he was admitted and h ad desaturation with hypoxia. As such, he was intubated and placed in the COVID ICU on ventilatory s upport. During his workup, he was noted to have a tension pneumothorax on the right chest and a ches t tube was placed by the ER physician at that time; however, it was noted that on the last chest x-ra y, there appeared to be some malpositioning of the chest tube. As such, I am consulted to help repos ition the chest tube. The patient is nonverbal during my examination and as such, I am unable to get information for the patient. As such, it is obtained from the chart and from speaking with other ysicians and staff. Past Medical History: Significant for hypertension, coronary artery disease with a stent in LAD, KIP D, obesity, heart catheterization. Past Surgical History: Includes left hand surgery, cardiac catheterizations and stent placement. Medications: Include aspirin, Lipitor, Plavix, colchicine, Lasix, Lopressor, Protonix. Allergies: NO KNOWN DRUG ALLERGIES. Review of Systems: Unable to obtain. Social History: Unable to obtain. Physical Examination: General: At the time of my examination; he is sedated. He is not intubated. He is on BiPAP support . Otherwise, he responds appropriately with thumbs up and thumbs down, but he is nonverbal. He appe ars quite hypoxic during my exam. HEENT: He is otherwise normocephalic. Sclerae anicteric. Mucous membranes are somewhat dry. Neck: Supple without JVD. Chest: Normal expansion and excursion. There was a right chest tube in place, which appears that th e suture may have been slipped as such and appears to be malpositioned somewhat. Laboratory Data: A chest x-ray was performed, which showed right-sided chest tube in place, but has retracted with the tip at the third intercostal space compared with prior positioning between the fir st and second intercostal space approximately 2.5 cm. Chest tube remains in the pleural space. Resi dual right-sided pneumothorax remains similar to comparison. Lung parenchymal opacification is not c hanged. As such, I have been consulted to reposition/advance the chest tube. Assessment And Plan: A 65-year-old male, who comes in with COVID-19 pneumonia and a right pneumothor ax with now retraction of the chest tube. I have explained the risks, benefits, and alternatives of advancement of the chest tube versus replac ement. The patient opts for advancement of the chest tube. As such, we will under sterile condition s advance the chest tube slightly to ensure good positioning and re-secure the chest tube with a sutu re under sterile conditions. I have explained risks, benefits, and alternatives of the above stated plan. The patient agrees to proceed as indicated. BEBO/ELISEO Voice ID: [id number] Report ID: [id number]
--- NOTE | 2021-02-11 18:13 | P.PN ---
Subjective Date of Service: 02/11/21 Primary Care Provider: Ted roberson Chief Complaint: Respiratory failure with right-sided pneumothorax Resp failure Chest tube repositioned Review of Systems is unable to be obtained Physical Examination - Vital Signs Temperature: 98 F Blood Pressure: 112/93 Pulse: 109 Respirations: 20 Pulse Ox (%): 97 - Studies Medications List Reviewed: Yes Assessment & Plan - Problems (Diagnosis) (1) Pneumonia due to 2019 novel coronavirus Current Visit: Yes Status: Acute Plan: Resp failure CT repositioned/ Still requiring very conc of Fio2/dc levaquin. Reduce dose of steroids/ Feeding tube placed. CXRy improved/ Reduce dose of steroids
--- NOTE | 2021-02-11 20:08 | OP ---
Date of Procedure: 02/11/2021 Surgeon: Edward Denton MD, Preoperative Diagnosis: Malpositioning of the right thoracostomy tube. Postoperative Diagnosis: Malpositioning of the right thoracostomy tube. Procedure Performed: Repositioning of the right thoracostomy tube. Anesthesia: Local 1% lidocaine. Estimated Blood Loss: None. Specimen: None. Findings: Chest tube advanced 3 cm. Complications: None. Drains: The same said right thoracostomy tube remained in place. Disposition: The patient remained ICU in serious condition. Procedure In Detail: After informed consent was obtained, the patient was prepped and draped with st erile Betadine. His entire chest wall was prepped on the right side as well as soaking of the tube w ith Betadine with a double wet prep. After this was completed and allowed to dry, the tube was then cleansed once again and the suture which had been somewhat damaged was removed in its entirety using a sterile suture tray and suture scissors. The tube was then palpated and found to have an extrathor acic subcutaneous course. As such, I advanced this portion into the chest wall after ensuring the ar ea was prepped properly with Betadine. At this point, the chest tube was re-secured to the chest wal l after advancing approximately 3 cm and a 2-0 nylon suture was used to re-secure the chest tube to t he thoracic wall after appropriately anesthetizing the skin. A sterile dressing was then placed over top. The patient tolerated the procedure well without evidence of complication, remained in the ICU in serious condition. All counts were correct at the end of the case. Stat chest x-ray will be per formed. BEBO/ELISEO Voice ID: [id number] Report ID: [id number]
[2021-02-11] MEDS: ATORVASTATIN 40 MG TAB PO SCH (20:24)
[2021-02-12] MEDS: ONDANSETRON 4 MG/2 ML VIAL IV PRN ×2 (00:22→13:10)
[2021-02-12] MEDS: MORPHINE 2 MG/ML SYR IV PRN ×6 (00:25→20:45)
[2021-02-12] MEDS: ALPRAZOLAM 0.5 MG TABLET PO PRN ×3 (00:35→22:47)
[2021-02-12 05:11] LABS: Absolute Lymphocytes (CBC) 0.1 K/uL (0.7-4.9); Basophils % 0.2 % (0-1.3); Hematocrit 35.2 % (39.6-49.0); Lymphocytes % 1.9 % (15.3-44.8); MPV 9.1 fL (7.6-11.3); RBC Red Blood Cell Count 3.96 M/uL (4.33-5.43)
[2021-02-12 05:40] LABS: BUN Blood Urea Nitrogen 70 mg/dL (7-18); Bicarbonate 28 mmol/L (21-32); Glucose Level 209 mg/dL (74-106); Potassium 4.5 mmol/L (3.5-5.1); Sodium Level 140 mmol/L (136-145)
[2021-02-12 05:52] LABS: Blood Morphology Comment NOT SEEN (NOT SEEN); Platelet Estimate ADEQ
[2021-02-12] MEDS: INSULIN -REGULAR HUMAN 50 UNIT/0.5 ML ML SQ SCH ×4 (07:30→21:00)
[2021-02-12] MEDS: VITAMIN D 1000 UNIT TAB PO SCH (08:03)
[2021-02-12] MEDS: ASPIRIN EC 81 MG TAB PO SCH (08:04)
[2021-02-12] MEDS: THIAMINE HCL 100 MG TABLET PO SCH (08:04)
[2021-02-12] MEDS: ZINC SULFATE 220 MG CAP PO SCH (08:04)
[2021-02-12] MEDS: APIXABAN 5 MG TABLET PO SCH ×2 (08:04→20:07)
[2021-02-12] MEDS: METHYLPREDNISOLONE 40 MG INJ IV SCH ×2 (08:04→20:07)
[2021-02-12] MEDS: ASCORBIC ACID 500 MG TABLET PO SCH ×2 (08:04→12:13)
[2021-02-12] MEDS: ENSURE HIGH PROTEIN 237 ML CAN PO SCH ×2 (08:05→20:07)
--- NOTE | 2021-02-12 08:35 | RAD REPORT ---
EXAM DESCRIPTION: RAD - Chest Single View - 02/12/2021 5:54 am CLINICAL HISTORY: pneumo Chest pain. COMPARISON: Chest Single View dated 02/11/2021; Chest Single View dated 02/11/2021; Chest Single View dated 02/10/2021; Chest Single View dated 02/10/2021 FINDINGS: Portable technique limits examination quality. Right-sided chest tube remains in position in directed cephalad. Small residual right pneumothorax is persistent since comparative study. No significant change in lung aeration is seen. The heart is upp er limit normal in size.Enteric tube tip is in the stomach. IMPRESSION: Stable chest since yesterday's examination.
--- NOTE | 2021-02-12 12:49 | P.PN ---
Subjective Date of Service: 02/12/21 Primary Care Provider: Ted roberson Chief Complaint: Respiratory failure with right-sided pneumothorax Patient more dyspneic on BiPAP with FiO2 of 80% today. Noted to be tachycardic. Physical Examination - Vital Signs Temperature: 97.9 F Blood Pressure: 123/92 Pulse: 112 Respirations: 27 Pulse Ox (%): 95 - Studies Medications List Reviewed: Yes Assessment And Plan - Current Problems (Diagnosis) (1) Pneumonia due to 2019 novel coronavirus Current Visit: Yes Status: Acute (2) Acute respiratory failure with hypoxia Current Visit: Yes Status: Acute (3) Coronary artery disease Current Visit: Yes Status: Acute - Plan Continue IV Solu-Medrol, bronchodilators, vitamin supplementation, and zinc supplementation. Status post Actemra. Patient transferred to the ICU, He is on 100% high-flow oxygen. Continue to monitor inflammatory markers. Eliquis for DVT prophylaxis. Monitor CBC and blood chemistry. Pulmonary-Dr. Buckley is following. Monitor electrolytes and CBC Physician Review Additional Text: Physical Exam General: AAOx3, NAD HEENT: sclera anicteric Respiratory: Tachypneic on BiPAP. Cardiovascular: Tachycardic, no edema Gastrointestinal: Soft and benign, Non-distended Musculoskeletal: No joint swelling/tenderness Integumentary: No rashes Assessment And Plan acute hypoxemic respiratory failure secondary to COVID-19 pneumonia Small left apical pneumothorax, with pneumomediastinum CAD HTN Constipation Continue BiPAP per pulmonary. Titrate FiO2 to improve tachycardia and t achypnea. Chest tube in situ for pneumothorax. Dr. Denton readjusted the chest you today 02/11. Continue IV Solu-Medrol, bronchodilators, vitamin supplementation, and zinc supplementation. s/p Actemra Pulm following Eliquis for DVT prophylaxis. CT chest (02/07): diffuse groundglass opacities, no effusion Insert Dobhoff for feeding. Morphine IV p.r.n. for anxiety and shortness of breath. guarded prognosis VTE: eliquis Code: full
[2021-02-12] MEDS: HYDROCODONE/APAP 7.5/325 MG TAB PO PRN (13:10)
--- NOTE | 2021-02-12 13:39 | P.PN ---
Subjective Date of Service: 02/12/21 Primary Care Provider: Ted roberson Chief Complaint: Respiratory failure No change continue patient continues to be very hypoxic Review of Systems General: Weakness Respiratory: Shortness of Breath Physical Examination - Vital Signs Temperature: 97.9 F Blood Pressure: 123/92 Pulse: 112 Respirations: 27 Pulse Ox (%): 95 - Physical Exam General: Alert, Cooperative, Moderate distress - Studies Medications List Reviewed: Yes Assessment & Plan - Problems (Diagnosis) (1) Pneumonia due to 2019 novel coronavirus Current Visit: Yes Status: Acute Plan: Respiratory failure no significant improvement high concentrations of oxygen BUN is elevated no pneumothorax vital signs stable increase nasogastric tube fluids patient is on 80% FiO2
[2021-02-13] MEDS: MORPHINE 2 MG/ML SYR IV PRN ×5 (00:53→19:30)
[2021-02-13] MEDS: HYDROCODONE/APAP 7.5/325 MG TAB PO PRN ×3 (02:08→21:00)
[2021-02-13 06:19] LABS: Absolute Lymphocytes (CBC) 0.1 K/uL (0.7-4.9); Basophils % 0.2 % (0-1.3); Hematocrit 33.7 % (39.6-49.0); Lymphocytes % 2.2 % (15.3-44.8); MPV 9.7 fL (7.6-11.3); RBC Red Blood Cell Count 3.72 M/uL (4.33-5.43)
[2021-02-13 06:36] LABS: Potassium 4.4 mmol/L (3.5-5.1)
[2021-02-13 06:40] VITALS: BMI 29.5
--- NOTE | 2021-02-13 07:37 | RAD REPORT ---
EXAM DESCRIPTION: RAD - Chest Single View - 02/13/2021 5:49 am CLINICAL HISTORY: pneumo COMPARISON: Chest Single View dated 02/12/2021; Chest Single View dated 02/11/2021; Chest Single View dated 02/11/2021; Chest Single View dated 02/10/2021; Chest Single View dated 02/10/2021; Thorax Wo Con dated 02/07/2021 FINDINGS: Right-sided chest tube in slightly different positioning, likely retracted some, with smal l residual pneumothorax. Pneumomediastinum is again noted. Ill-defined bilateral airspace disease is again noted and similar. Enteric tube tip overlies the distal stomach. IMPRESSION: 1. Right-sided chest tube may have been slightly retracted with persistent small right-s ided pneumothorax. Pneumomediastinum also again noted. 2. Patchy airspace disease bilaterally consistent with multifocal pneumonia.
[2021-02-13] MEDS: APIXABAN 5 MG TABLET PO SCH ×2 (09:28→20:52)
[2021-02-13] MEDS: THIAMINE HCL 100 MG TABLET PO SCH (09:28)
[2021-02-13] MEDS: ALPRAZOLAM 0.5 MG TABLET PO PRN ×2 (09:28→18:41)
[2021-02-13] MEDS: METHYLPREDNISOLONE 40 MG INJ IV SCH ×2 (09:28→20:53)
[2021-02-13] MEDS: VITAMIN D 1000 UNIT TAB PO SCH (09:28)
[2021-02-13] MEDS: ASPIRIN EC 81 MG TAB PO SCH (09:28)
[2021-02-13] MEDS: INSULIN -REGULAR HUMAN 50 UNIT/0.5 ML ML SQ SCH ×4 (09:30→20:52)
[2021-02-13] MEDS: ENSURE HIGH PROTEIN 237 ML CAN PO SCH ×2 (10:11→20:52)
--- NOTE | 2021-02-13 13:35 | P.PN ---
Subjective Date of Service: 02/13/21 Primary Care Provider: Ted roberson Chief Complaint: Respiratory failure Patient stable on BiPAP today. Physical Examination - Vital Signs Temperature: 97.1 F Blood Pressure: 128/96 Pulse: 123 Respirations: 26 Pulse Ox (%): 100 - Physical Exam General: Other (Awake) HEENT: Other (BiPAP) Respiratory: Other (Mildly labored breathing) - Studies Medications List Reviewed: Yes Assessment And Plan - Current Problems (Diagnosis) (1) Pneumonia due to 2019 novel coronavirus Current Visit: Yes Status: Acute (2) Acute respiratory failure with hypoxia Current Visit: Yes Status: Acute (3) Coronary artery disease Current Visit: Yes Status: Acute Physician Review Additional Text: Physical Exam General:Mild distress HEENT: sclera anicteric Respiratory: Tachypneic on BiPAP. Mildly labored breathing. Cardiovascular: Tachycardic, no edema Gastrointestinal: Soft and benign, Non-distended Musculoskeletal: No joint swelling/tenderness Integumentary: No rashes Assessment And Plan acute hypoxemic respiratory failure secondary to COVID-19 pneumonia Small left apical pneumothorax, with pneumomediastinum CAD HTN Constipation Continue BiPAP per pulmonary. Titrate FiO2 to improve tachycardia and tachypnea. Chest tube in situ for pneumothorax. Dr. Denton readjusted the chest you today 02/11. Continue IV Solu-Medrol, bronchodilators, vitamin supplementation, and zinc supplementation. s/p Actemra Pulm following Eliquis for DVT prophylaxis. Dobhoff for feeding. Morphine IV p.r.n. for anxiety and shortness of breath. guarded prognosis VTE: eliquis Code: full
--- NOTE | 2021-02-13 15:18 | P.PN ---
Subjective Date of Service: 02/13/21 Primary Care Provider: Ted roberson Chief Complaint: Respiratory failure Condition stable Review of Systems is unable to be obtained Physical Examination - Vital Signs Temperature: 97.1 F Blood Pressure: 112/79 Pulse: 103 Respirations: 11 Pulse Ox (%): 95 - Physical Exam General: Unresponsive - Studies Medications List Reviewed: Yes Assessment & Plan - Problems (Diagnosis) (1) Pneumonia due to 2019 novel coronavirus Current Visit: Yes Status: Acute Plan: Respiratory failure still on high concentrations of oxygen saturations have improved is good minimal pneumothorax significant air leak blood pressure stable labs treatment reviewed no change prognosis poor
[2021-02-14] MEDS: MORPHINE 2 MG/ML SYR IV PRN ×5 (00:09→14:38)
[2021-02-14] MEDS: ALPRAZOLAM 0.5 MG TABLET PO PRN ×2 (04:07→15:22)
[2021-02-14 05:46] LABS: Absolute Lymphocytes (CBC) 0.2 K/uL (0.7-4.9); Basophils % 0.1 % (0-1.3); Lymphocytes % 2.7 % (15.3-44.8); MPV 10.4 fL (7.6-11.3); RBC Red Blood Cell Count 3.66 M/uL (4.33-5.43)
[2021-02-14] MEDS: INSULIN -REGULAR HUMAN 50 UNIT/0.5 ML ML SQ SCH ×4 (07:30→21:00)
[2021-02-14 08:38] LABS: Blood Morphology Comment NOT SEEN (NOT SEEN); Platelet Estimate ADEQ
[2021-02-14] MEDS: ENSURE HIGH PROTEIN 237 ML CAN PO SCH ×2 (09:00→21:00)
[2021-02-14 09:07] LABS: Potassium 4.5 mmol/L (3.5-5.1)
[2021-02-14] MEDS: METHYLPREDNISOLONE 40 MG INJ IV SCH ×2 (10:43→21:07)
--- NOTE | 2021-02-14 11:07 | RAD REPORT ---
EXAM DESCRIPTION: RAD - Abdomen 1 View (KUB) - 02/14/2021 7:11 am CLINICAL HISTORY: reinsert of dobhoff feeding tube Pain COMPARISON: Abdomen 1 View (KUB) dated 01/28/2021; Abdomen 1 View (KUB) dated 01/27/2021; Abdomen 1 Vi ew (KUB) dated 01/25/2021; Abdomen 1 View (KUB) dated 01/21/2021 FINDINGS: Tip of the enteric tube is in the body of the stomach.
--- NOTE | 2021-02-14 11:10 | RAD REPORT ---
EXAM DESCRIPTION: RAD - Chest Single View - 02/14/2021 7:12 am CLINICAL HISTORY: pneumo Chest pain. COMPARISON: Chest Single View dated 02/13/2021; Chest Single View dated 02/12/2021; Chest Single View dated 02/11/2021; Chest Single View dated 02/11/2021 FINDINGS: Portable technique limits examination quality. Right-sided chest tube remains in place. Right-sided pneumothorax is again visualized approximately 1 5% of lung volume and appearing similar to comparative study. Pneumomediastinum appears mildly improv ed since yesterday's examination. Enteric tube descends into the stomach with its tip at the region o f the body of the stomach. Bilateral pulmonary opacities have mildly improved since yesterday's exami [email or web address].The heart is mildly enlarged in size.
[2021-02-14] MEDS: APIXABAN 5 MG TABLET PO SCH ×2 (11:45→21:01)
[2021-02-14] MEDS: VITAMIN D 1000 UNIT TAB PO SCH (11:45)
[2021-02-14] MEDS: ASPIRIN EC 81 MG TAB PO SCH (11:45)
[2021-02-14] MEDS: THIAMINE HCL 100 MG TABLET PO SCH (11:45)
[2021-02-14] MEDS ORDERED: LORazepam 2 MG/ML VIAL IV ONE (12:00)
--- NOTE | 2021-02-14 12:04 | P.PN ---
Subjective Date of Service: 02/14/21 Primary Care Provider: Ted roberson Chief Complaint: Respiratory failure Patient is restless today. Almost pulled the NG tube out this morning. Physical Examination - Vital Signs Temperature: 97.5 F Blood Pressure: 113/99 Pulse: 114 Respirations: 15 Pulse Ox (%): 93 - Physical Exam General: Confused (Responsive and obey commands) HEENT: Other (BiPAP) Respiratory: Other (Moderately labored breathing) Cardiovascular: Normal S1 S2 (Tachycardic) Gastrointestinal: Soft and benign, Non-distended Integumentary: No rashes Neurological: Other (Moves all extremities.) - Studies Medications List Reviewed: Yes Assessment And Plan - Current Problems (Diagnosis) (1) Pneumonia due to 2019 novel coronavirus Current Visit: Yes Status: Acute (2) Acute respiratory failure with hypoxia Current Visit: Yes Status: Acute (3) Coronary artery disease Current Visit: Yes Status: Acute Physician Review Additional Text: Physical Exam General:Mild distress HEENT: sclera anicteric Respiratory: Tachypneic on BiPAP. Moderately labored breathing. Cardiovascular: Tachycardic, no edema Gastrointestinal: Soft and benign, Non-distended Musculoskeletal: No joint swelling/tenderness Integumentary: No rashes Assessment And Plan acute hypoxemic respiratory failure secondary to COVID-19 pneumonia Small left apical pneumothorax, with pneumomediastinum CAD HTN Constipation Continue BiPAP per pulmonary. Titrate FiO2. Chest tube in situ for pneumothorax. Dr. Denton readjusted the chest you today 02/11. Pneumothorax unchanged. His chest x-ray shows improving infiltrates. Continue IV Solu-Medrol, bronchodilators, vitamin supplementation, and zinc supplementation. s/p Actemra Pulm following Eliquis for DVT prophylaxis. Dobhoff for feeding. Morphine IV p.r.n. for anxiety and shortness of breath. guarded prognosis VTE: eliquis Code: full
[2021-02-14] MEDS: MORPHINE 4 MG/ML SYR IV PRN ×2 (19:30→23:27)
[2021-02-15] MEDS: MORPHINE 4 MG/ML SYR IV PRN ×6 (02:55→23:40)
[2021-02-15 05:35] LABS: Absolute Lymphocytes (CBC) 0.3 K/uL (0.7-4.9); Basophils % 0.5 % (0-1.3); Hematocrit 34.5 % (39.6-49.0); Lymphocytes % 3.3 % (15.3-44.8); MPV 10.7 fL (7.6-11.3); RBC Red Blood Cell Count 3.76 M/uL (4.33-5.43)
[2021-02-15 05:41] LABS: Potassium 4.3 mmol/L (3.5-5.1)
[2021-02-15] MEDS: INSULIN -REGULAR HUMAN 50 UNIT/0.5 ML ML SQ SCH ×4 (07:30→20:59)
[2021-02-15] MEDS: VITAMIN D 1000 UNIT TAB PO SCH (08:49)
[2021-02-15] MEDS: APIXABAN 5 MG TABLET PO SCH ×2 (08:50→20:59)
[2021-02-15] MEDS: ALPRAZOLAM 0.5 MG TABLET PO PRN ×2 (08:50→17:20)
[2021-02-15] MEDS: ASPIRIN EC 81 MG TAB PO SCH (08:50)
[2021-02-15] MEDS: THIAMINE HCL 100 MG TABLET PO SCH (08:50)
[2021-02-15] MEDS: ENSURE HIGH PROTEIN 237 ML CAN PO SCH ×2 (08:51→21:00)
[2021-02-15] MEDS: METHYLPREDNISOLONE 40 MG INJ IV SCH ×2 (08:52→20:59)
[2021-02-15] MEDS ORDERED: BISACODYL 10 MG RECTAL SUPP PR ONE ×2 (09:15→10:00)
--- NOTE | 2021-02-15 10:36 | P.PN ---
Subjective Date of Service: 02/15/21 Primary Care Provider: Ted roberson Chief Complaint: Respiratory failure Patient is not doing well he is very delirious agitated hypoxic Review of Systems is unable to be obtained Physical Examination - Vital Signs Temperature: 99.5 F Blood Pressure: 122/77 Pulse: 137 Respirations: 27 Pulse Ox (%): 92 - Physical Exam General: Delirious - Studies Medications List Reviewed: Yes Assessment & Plan - Problems (Diagnosis) (1) Pneumonia due to 2019 novel coronavirus Current Visit: Yes Status: Acute Plan: Respiratory failure prognosis very poor probably got prerenal renal failure of started him on water flushes labs reviewed will discuss with relatives regarding DNR still has a small pneumothorax on the right side
--- NOTE | 2021-02-15 11:24 | P.PN ---
Subjective Date of Service: 02/15/21 Primary Care Provider: Ted roberson Chief Complaint: Respiratory failure Patient is confused and looks exhausted. Physical Examination - Vital Signs Temperature: 99.5 F Blood Pressure: 122/77 Pulse: 137 Respirations: 27 Pulse Ox (%): 92 - Physical Exam General: Confused, Other (Exhausted) HEENT: Other (BiPAP) Neck: JVD not distended Respiratory: Other (Moderately labored breathing.) Cardiovascular: Normal S1 S2 (Tachycardia) Gastrointestinal: Soft and benign, Non-distended Musculoskeletal: No swelling Integumentary: No rashes Neurological: Other (Confused. Moves all extremities spontaneously.) - Studies Medications List Reviewed: Yes Assessment And Plan - Current Problems (Diagnosis) (1) Pneumonia due to 2019 novel coronavirus Current Visit: Yes Status: Acute (2) Acute respiratory failure with hypoxia Current Visit: Yes Status: Acute (3) Coronary artery disease Current Visit: Yes Status: Acute Physician Review Additional Text: Physical Exam General:Mild distress HEENT: sclera anicteric Respiratory: Tachypneic on BiPAP. Moderately labored breathing. Cardiovascular: Tachycardic, no edema Gastrointestinal: Soft and benign, Non-distended Musculoskeletal: No joint swelling/tenderness Integumentary: No rashes Assessment And Plan acute hypoxemic respiratory failure secondary to COVID-19 pneumonia Small left apical pneumothorax, with pneumomediastinum CAD HTN Constipation Patient isprogressively declining. Continue BiPAP per pulmonary. Titrate FiO2. Chest tube in situ for pneumothorax. Dr. Denton readjusted the chest you today 02/11. Pneumothorax unchanged. His chest x-ray shows improving infiltrates but he is looking clinically worse. Continue IV Solu-Medrol, bronchodilators, vitamin supplementation, and zinc supplementation. s/p Actemra Pulm following Eliquis for DVT prophylaxis. Dobhoff for feeding. Morphine IV p.r.n. for anxiety and shortness of breath. Poor prognosis. VTE: eliquis Code: full
--- NOTE | 2021-02-15 17:25 | RAD REPORT ---
[facility] 5[facility]12 pm CLINICAL HISTORY: Pneumothorax COMPARISON: February 14, 2021 FINDINGS: The chest tube enters the lower lateral right hemithorax extending superiorly. The mid to distal portion of the right chest tube and extends inferiorly and medially. The tip lies within the medial inferior right hemithorax. The relatively small right pneumothorax has mildly diminished in size from the prior exam. No other significant change
[2021-02-15] MEDS ORDERED: METOPROLOL TARTRATE 5 MG/5 ML INJ IV STA (17:38)
[2021-02-15] MEDS: METOPROLOL TAR 25 MG TAB PO SCH (20:45)
[2021-02-16] MEDS: MORPHINE 4 MG/ML SYR IV PRN ×4 (03:46→18:52)
[2021-02-16] MEDS: METHYLPREDNISOLONE 40 MG INJ IV SCH (08:04)
[2021-02-16] MEDS: ASPIRIN EC 81 MG TAB PO SCH (08:05)
[2021-02-16] MEDS: VITAMIN D 1000 UNIT TAB PO SCH (08:05)
[2021-02-16] MEDS: THIAMINE HCL 100 MG TABLET PO SCH (08:05)
[2021-02-16] MEDS: APIXABAN 5 MG TABLET PO SCH (08:05)
[2021-02-16] MEDS: ENSURE HIGH PROTEIN 237 ML CAN PO SCH (08:06)
[2021-02-16] MEDS: METOPROLOL TAR 25 MG TAB PO SCH (08:08)
[2021-02-16] MEDS: INSULIN -REGULAR HUMAN 50 UNIT/0.5 ML ML SQ SCH ×3 (09:03→16:41)
--- NOTE | 2021-02-16 10:05 | P.PN ---
Subjective Date of Service: 02/16/21 Primary Care Provider: Ted roberson Chief Complaint: Respiratory failure Subjective: Improving (Pneumothorax improving) Physical Examination - Vital Signs Temperature: 97.4 F Blood Pressure: 128/94 Pulse: 135 Respirations: 17 Pulse Ox (%): 90 - Physical Exam Respiratory: Diminished, Other (Chest tube in place, no change) - Studies Medications List Reviewed: Yes Assessment And Plan - Current Problems (Diagnosis) (1) Pneumonia due to COVID-19 virus Current Visit: Yes Status: Acute Plan: - continue current plan per Dr. Brownlee - will sign off for now, please call back with any issues (2) Pneumothorax Current Visit: Yes Status: Acute Physician Review Additional Text: Physical Exam General:Mild distress HEENT: sclera anicteric Respiratory: Tachypneic on BiPAP. Moderately labored breathing. Cardiovascular: Tachycardic, no edema Gastrointestinal: Soft and benign, Non-distended Musculoskeletal: No joint swelling/tenderness Integumentary: No rashes Assessment And Plan acute hypoxemic respiratory failure secondary to COVID-19 pneumonia Small left apical pneumothorax, with pneumomediastinum CAD HTN Constipation Patient isprogressively declining. Continue BiPAP per pulmonary. Titrate FiO2. Chest tube in situ for pneumothorax. Dr. Denton readjusted the chest you today 02/11. Pneumothorax unchanged. His chest x-ray shows improving infiltrates but he is looking clinically worse. Continue IV Solu-Medrol, bronchodilators, vitamin supplementation, and zinc supplementation. s/p Actemra Pulm following Eliquis for DVT prophylaxis. Dobhoff for feeding. Morphine IV p.r.n. for anxiety and shortness of breath. Poor prognosis. VTE: eliquis Code: full
--- NOTE | 2021-02-16 12:08 | P.PN ---
Subjective Date of Service: 02/16/21 Primary Care Provider: Ted roberson Chief Complaint: Respiratory failure Patient is delirious agitated Review of Systems is unable to be obtained Physical Examination - Vital Signs Temperature: 97.4 F Blood Pressure: 128/94 Pulse: 135 Respirations: 17 Pulse Ox (%): 90 - Physical Exam General: Delirious, Unresponsive - Studies Medications List Reviewed: Yes Assessment & Plan - Problems (Diagnosis) (1) Pneumonia due to 2019 novel coronavirus Current Visit: Yes Status: Acute Plan: Respiratory failure oxygen requirements are declining hypernatremic start on D5 water 70% FiO2 patient is still has significant air leak vital signs stable start on Lantus insulin
--- NOTE | 2021-02-16 12:30 | P.PN ---
Subjective Date of Service: 02/16/21 Primary Care Provider: Ted roberson Chief Complaint: Respiratory failure Patient remain confused, intermittently hypotensive, restless, agitated and tachycardic. Physical Examination - Vital Signs Temperature: 97.4 F Blood Pressure: 128/94 Pulse: 135 Respirations: 17 Pulse Ox (%): 90 - Physical Exam General: Delirious HEENT: Other (BiPAP) Respiratory: Diminished, Crackles/rales (Bilateral bases) Cardiovascular: No edema, Normal S1 S2 (Tachycardic) Gastrointestinal: Soft and benign, Non-distended Musculoskeletal: No swelling Integumentary: No rashes Neurological: Other (Moves all extremities spontaneously) - Studies Medications List Reviewed: Yes Assessment And Plan - Current Problems (Diagnosis) (1) Pneumonia due to 2019 novel coronavirus Current Visit: Yes Status: Acute (2) Acute respiratory failure with hypoxia Current Visit: Yes Status: Acute (3) Coronary artery disease Current Visit: Yes Status: Acute Physician Review Additional Text: Physical Exam General:Mild distress HEENT: sclera anicteric Respiratory: Tachypneic on BiPAP. Moderately labored breathing. Cardiovascular: Tachycardic, Gastrointestinal: Soft and benign, Non-distended Musculoskeletal: No joint swelling/tenderness Integumentary: No rashes Assessment And Plan acute hypoxemic respiratory failure secondary to COVID-19 pneumonia Small left apical pneumothorax, with pneumomediastinum CAD HTN Constipation Patient is progressively declining. Continue BiPAP. Titrate FiO2. Chest tube in situ for pneumothorax. Dr. Denton readjusted the chest you today 02/11. Pneumothorax unchanged. His chest x-ray shows improving infiltrates but he is looking clinically worse. Continue IV Solu-Medrol, bronchodilators, vitamin supplementation, and zinc supplementation. s/p Actemra Pulm following Eliquis for DVT prophylaxis. Dobhoff for feeding. Morphine IV p.r.n. for anxiety and shortness of breath. Poor prognosis. I discussed DNR and DNI the with the Daughter. Daughter plans to discuss with the rest of the family to decide on DNR and DNI. VTE: eliquis Code: full
[2021-02-16] MEDS ORDERED: D5W 1,000 ML IV SCH (13:00)
[2021-02-16 13:09] LABS: Arterial Blood Carboxyhemoglob 2.1 % (0-1.5); Blood Gas Oxyhemoglobin 95.7 % (94-97)
[2021-02-16] MEDS: ALPRAZOLAM 0.5 MG TABLET PO PRN (16:22)
[2021-02-16 16:49] VITALS: O2SAT 92
[2021-02-16 16:57] VITALS: TEMP 97.1
[2021-02-16] MEDS ORDERED: INSULIN GLARGINE 100 UNITS/ML SQ SCH (17:00)
[2021-02-16] MEDS ORDERED: NOREPINEPHRINE 4 MG in D5W 250 ML IV PRN (17:19)
[2021-02-16] MEDS ORDERED: NA CHLORIDE 0.9% 1,000 ML ONE (17:40)
[2021-02-16] MEDS ORDERED: NOREPINEPHRINE 4mg/D5W 250mL 4 MG/250 ML BAG IV ONE (17:44)
[2021-02-16] MEDS ORDERED: MORPHINE 4 MG/ML SYR IV PRN (18:42)
[2021-02-16] MEDS ORDERED: LORazepam 2 MG/ML VIAL IV PRN ×2 (18:44→20:00)
[2021-02-16 18:58] VITALS: BP 67/41
--- NOTE | 2021-02-17 01:10 | P.DS ---
Admission Date: 01/15/21 Discharge Date: 02/17/21 Primary Care Provider: Ted roberson Disposition: Discharge Condition: Reason for Admission: Respiratory failure Procedures: Procedures Most recent chest x-ray 02/15/2021 FINDINGS: The chest tube enters the lower lateral right hemithorax extending superiorly. The mid to distal portion of the right chest tube and extends inferiorly and medially. The tip lies within the medial inferior right hemithorax. The relatively small right pneumothorax has mildly diminished in size from the prior exam. Most recent KUB 02/14/2021 COMPARISON: Abdomen 1 View (KUB) dated 01/28/2021; Abdomen 1 View (KUB) dated 01/27/2021; Abdomen 1 View (KUB) dated 01/25/2021; Abdomen 1 View (KUB) dated 01/21/2021 FINDINGS: Tip of the enteric tube is in the body of the stomach. CT chest 02/07/2021 FINDINGS: The evaluation of mediastinum, [place] and vessels is limited secondary to lack of IV contrast administration. Moderate diffuse ground-glass opacities are present predominantly within the lower lobes bilaterally. Small to moderate amount of pneumomediastinum is diminished from the February 03, 2021 exam A pleural effusion is not present. No pericardial effusion No pneumothorax Subcutaneous emphysema has resolved from the February 03, 2021 exam IMPRESSION: Moderate predominately bilateral lower lobe ground-glass opacities can be seen with Covid pneumonia. This is without significant change from February 06, 2021 Small to moderate amount of pneumomediastinum diminished from February 03, 2021 Right-sided chest tube performed by Dr. Denton-see documentation for further information Brief History of Present Illness: 65-year-old male with history of hypertension, CAD presents the emergency department for shortness of breath, chest pain. Patient reports not feeling well over the course of the last 2 to 3 days, was febrile upon presentation to the emergency department. Patient found to be mildly hypoxic saturating in the high 80s to low 90s with exertion. Patient tested positive for Covid, ED provider wishes to admit for further evaluation and management of Covid pneumonia with hypoxia. Hospital Course: Patient was admitted for acute hypoxic respiratory failure secondary to COVID-19 pneumonia approximately 1 month prior. Patient prolonged hospitalization complicated with subcutaneous emphysema and right-sided pneumothorax. Patient did very poorly was requiring high concentrations of oxygen, earlier today attending physician had discussion with family in regards to advanced care directives and given the patient's condition they elected for DNI/DNR. Patient at 1911 on 02/16/2021. Family made aware. Vital Signs/Physical Exam: Temp Pulse Resp BP Pulse Ox 97.1 F 113 H 21 H 67/41 L 100 02/16/21 16:00 02/16/21 18:45 02/16/21 18:52 02/16/21 18:45 02/16/21 18:52 General: Unresponsive Neck: Other (No carotid pulses palpable) Laboratory Data at Discharge: WBC 10.30 K/uL (4.3-10.9) D 02/15/21 05:02 Hgb 11.4 g/dL (13.6-17.9) L 02/15/21 05:02 Hct 34.5 % (39.6-49.0) L 02/15/21 05:02 Plt Count 166 K/uL (152-406) D 02/15/21 05:02 PT 13.0 SECONDS (9.5-12.5) H 01/14/21 23:57 INR 1.13 01/14/21 23:57 Sodium 148 mmol/L (136-145) H 02/15/21 05:02 Potassium 4.3 mmol/L (3.5-5.1) 02/15/21 05:02 BUN 82 mg/dL (7-18) H 02/15/21 05:02 Creatinine 1.03 mg/dL (0.55-1.3) 02/15/21 05:02 Glucose 208 mg/dL (74-106) H 02/15/21 05:02 Uric Acid 4.8 mg/dL (3.5-7.2) 01/23/21 06:22 Phosphorus 4.7 mg/dL (2.5-4.9) 02/05/21 04:29 Magnesium 2.3 mg/dL (1.8-2.4) 02/08/21 04:44 Total Bilirubin 1.1 mg/dL (0.2-1.0) H 02/01/21 04:38 AST 27 U/L (15-37) 02/01/21 04:38 ALT 70 U/L (12-78) 02/01/21 04:38 Alkaline Phosphatase 52 U/L (45-117) 02/01/21 04:38 Triglycerides 145 mg/dL (<150) 01/16/21 04:30 Cholesterol 180 mg/dL (<200) 01/16/21 04:30 HDL Cholesterol 47 mg/dL (40-60) 01/16/21 04:30 Cholesterol/HDL Ratio 3.83 01/16/21 04:30 Home Medications: Clopidogrel Bisulfate [Plavix*] 75 mg PO DAILY #30 tablet 09/07/18 Metoprolol Tartrate [Lopressor*] 50 mg PO DAILY 01/15/21 Followup: NONE,NONE [Primary Care Provider] -
== END 2021-02-16 20:50 | disposition expired | DRG 177 ==
LOC: ER 21:19 → ERHOLD 01-15 00:46 → 4TH 01-17 21:39 → 3RD-ICU 01-19 11:37
PROVIDERS: ADMIT Internal Medicine; ATTEND Internal Medicine
PROC: 5A09457 Assistance with Respiratory Ventilation, 24-96 Consecutive Hours, Continuous Positive Airway Pressure (ICD-10-PCS; 2021-01-19)
PROC: 0W9930Z Drainage of Right Pleural Cavity with Drainage Device, Percutaneous Approach (ICD-10-PCS; principal; 2021-02-10)
PROC: 0W9930Z Drainage of Right Pleural Cavity with Drainage Device, Percutaneous Approach (ICD-10-PCS; 2021-02-11)
DX: U07.1 COVID-19 (principal); J12.82 Pneumonia due to coronavirus disease 2019; J96.01 Acute respiratory failure with hypoxia; J93.0 Spontaneous tension pneumothorax; A41.89 Other specified sepsis; T79.7XXA Traumatic subcutaneous emphysema, initial encounter; E44.0 Moderate protein-calorie malnutrition; G93.40 Encephalopathy, unspecified; I10 Essential (primary) hypertension; I25.10 Atherosclerotic heart disease of native coronary artery without angina pectoris; Z95.5 Presence of coronary angioplasty implant and graft; K59.00 Constipation, unspecified; Z66 Do not resuscitate; R45.1 Restlessness and agitation; I95.9 Hypotension, unspecified; R00.0 Tachycardia, unspecified; Z68.29 Body mass index [BMI] 29.0-29.9, adult; L89.322 Pressure ulcer of left buttock, stage 2; L89.312 Pressure ulcer of right buttock, stage 2
CPT/HCPCS: 36415; 71045; 71046; 71250; 74018; 80048; 80053; 80061; 80069; 80076; 82248; 82728; 82805; 82947; 83735; 83880; 84100; 84439; 84443; 84484; 84550; 85025; 85027; 85379; 85610; 86140; 87804; 93005; 94002; 94003; 94660; 94760; 96365; 96372; 96375; 99285; J0696; J1170; J1200; J1650; J1720; J1815; J2270; J2405; J2765; J2920; J2930; J3262; J7030; J7060; U0003